=== PATIENT | male | born 1940 | race Caucasian/White ===

== ENCOUNTER → 2019-09-28 16:32 | Outpatient (CLI) | payer MEDICARE, OTHER, SELFPAY ==
--- NOTE | 2019-09-28 16:53 | XR_ITS ---
PROCEDURE: XR LUMBAR SPINE MIN 4V CLINICAL INDICATION: SCIATICA OF RIGHT SIDE The low back pain COMPARISON: No exams were available for comparison FINDINGS: Normal alignment. No fracture or dislocation. The the disc spaces are well preserved. There are facet arthritic changes at L5-S1. There are bilateral hip arthroplasties. IMPRESSION: Facet osteoarthritic change at L5-S1 Dictated by: Joni Abraham MD 09/28/2019 17:55 Electronically signed by Joni Abraham MD in [place] 09/28/2019 17:55
== END ==
PROVIDERS: PCP Family Medicine; Visit Provider Family Medicine
DX: M51.34 Other intervertebral disc degeneration, thoracic region (principal)
CPT/HCPCS: 72110

== ENCOUNTER → 2019-10-08 13:00 | Outpatient (CLI) | payer MEDICARE, OTHER, SELFPAY ==
--- NOTE | 2019-10-08 13:06 | XR_ITS ---
PROCEDURE: XR KNEE RT 3V CLINICAL INDICATION: ACUTE PAIN OF RIGHT KNEE COMPARISON: No exams were available for comparison FINDINGS: No fracture or dislocation. No lytic or blastic change. There is normal mineralization. There are mild osteoarthritic changes of the medial compartment and patellofemoral joint with small suprapatellar effusion. There is a small calcific density along the articular surface of the lateral femoral condyle which could be due to small osteophyte. Other findings:None. IMPRESSION: Osteoarthritic change with knee joint effusion Dictated by: Joni Abraham MD 10/08/2019 15:11 Electronically signed by Joni Abraham MD in [place] 10/08/2019 15:11
== END ==
PROVIDERS: PCP Family Medicine; Visit Provider Family Medicine
DX: M25.561 Pain in right knee (principal)
CPT/HCPCS: 73562

== ENCOUNTER → 2020-05-27 12:49 | Outpatient (CLI) | payer MEDICARE, OTHER, SELFPAY ==
--- NOTE | 2020-05-27 13:05 | ECG_ITS ---
APPROVED REPORT Exam: Resting ECG HR:76 bpm ECG Measurements Heart Rate 76 AXES RI 238 P 26 QRSd 104 QRS -46 QT 412 T 12 QTc 463 <Conclusion> Sinus rhythm with 1st degree AV block with premature atrial complexes Left axis deviation,LAHB Abnormal ECG Electronically signed by : Jeison Roldan, 05/28/2020 17:55:57
== END ==
PROVIDERS: PCP Family Medicine; Visit Provider Family Medicine
DX: R00.8 Other abnormalities of heart beat (principal)
CPT/HCPCS: 93005

== ENCOUNTER → 2022-02-22 10:11 | Outpatient (CLI) | payer MEDICARE, OTHER, SELFPAY ==
[2022-02-22 10:45] LABS: Blood Urea Nitrogen 18 mg/dl (9-20); Estimated Glomerular Filt Rate 53 ml/min (>60); GFR (African American) 64 ML/MIN (>60)
--- NOTE | 2022-02-22 10:48 | CT_ITS ---
FINAL REPORT TECHNIQUE: Thin section axial CT with IV contrast supplemented with multiplanar reconstruction under CT angiogram protocol. This study was performed with techniques to keep radiation doses as low as reasonably achievable (ALARA). Individualized dose reduction techniques using automated exposure control or adjustment of mA and/or kV according to the patient''s size were employed. NASCET criteria was utilized during interpretation. CLINICAL HISTORY: IMBALANCE FINDINGS: Aortic arch: Arch shows no significant narrowing. There is calcified plaque at the carotid bulbs bilaterally without evidence of stenosis. Right carotid: No significant stenosis is seen of the cervical common or internal carotid artery. Left carotid: No significant stenosis is seen of the cervical common or internal carotid artery. Vertebral: Left vertebral artery is dominant. No significant stenosis is present. IMPRESSION: Calcified plaque at the carotid bulbs bilaterally without significant stenosis. Reviewed, Interpreted and Dictated by Fredo Licea III, MD Transcribed by Yamilet Sadler Authenticated by Fredo Licea III, MD on 02/22/2022 12:46:[address] [facility]
== END ==
PROVIDERS: PCP Family Medicine; Visit Provider Family Medicine
DX: R26.89 Other abnormalities of gait and mobility (principal)
CPT/HCPCS: 36415; 70498; 82565; 84520; Q9967

== ENCOUNTER → 2022-03-08 13:53 | Outpatient (CLI) | payer MEDICARE, OTHER, SELFPAY ==
--- NOTE | 2022-03-08 13:57 | CT_ITS ---
FINAL REPORT TECHNIQUE: Thin section axial CT with IV contrast supplemented with multiplanar reconstruction under CT angiogram protocol. 3-D reconstructions were performed. This study was performed with techniques to keep radiation doses as low as reasonably achievable (ALARA). Individualized dose reduction techniques using automated exposure control or adjustment of mA and/or kV according to the patient''s size were employed. CLINICAL HISTORY: IMBALANCE FINDINGS: The distal vertebral, basilar and distal internal carotid arteries have an unremarkable appearance. No aneurysm is seen. Major intracranial vessels are patent without significant stenosis. Noncontrast CT images of the head reveal generalized age-appropriate atrophy. There is a 10 mm low-attenuation area in the right cerebral white matter which is nonspecific and may represent chronic ischemic change. There is no evidence of intracranial hemorrhage or mass. There is no evidence of acute infarct. There is no evidence of shift of the midline structures. No skull abnormality is seen on the bone window images. There is a retention cyst or polyp in the left maxillary sinus. IMPRESSION: Chronic ischemic change with no acute abnormality. No vascular abnormality. Reviewed, Interpreted and Dictated by Fredo Licea III, MD Transcribed by Corinna Cordero Authenticated by Fredo Licea III, MD on 03/08/2022 04:36:[address] [facility]
== END ==
PROVIDERS: PCP Family Medicine; Visit Provider Family Medicine
DX: R26.89 Other abnormalities of gait and mobility (principal)
CPT/HCPCS: 70496; Q9967

== ENCOUNTER 2022-03-28 09:00 | Outpatient (RCR) | payer MEDICARE, OTHER, SELFPAY ==
--- NOTE | 2022-02-20 15:45 | HMH.PTOPEV ---
PT Outpatient Evaluation Rehab PT Outpatient Evaluation Start: 02/20/22 15:07 Freq: Status: Active Protocol: Document 02/20/22 15:27 FLY (Rec: 02/20/22 15:45 FLY [id number]) Electronically Signed By Theo Singh PT 02/20/22 15:27 Outpatient Therapy Subjective History Subjective History This is the initial Physical Therapy evaluation for Mayur Marks. Pt reports to PT for c/o dizziness that have been intermittantly going on for 6 MONTHS OR MORE . Pt reports he has been diagnosed w/ Meniere's disease 7-8 years ago. Pt also reports recent progressive hearing loss and use of hearing aids. Pt states his dizziness can vary in intensity and description, sometimes it just like pictures sliding down the wall other times it is room flat spinning counter clockwise . Pt can not pin point any aggravating factors, time of day or positions that cause complaints of dizziness . Chief Complaint Other Symptom Type Other Symptoms Relieved By Nothing Prior Functional Limitations None Current Functional Limitations Housework,Driving,Recreation Activity,Walking,Balance Symptom Description Intermittent Balance Eval Chief Complaint vertigo Yes Did you feel dizzy, unsteady or faint? Yes Activity at onset unknown Prior Functional Limitations Prior Functional [place] Level Fully Independent Current Functional Limitations Comment modified independent Hx of Falls Hx Falls No Number in last 6 months 0 Gait/Posture Asssessment General Gait Observation Wide Based Gait,Shuffling Step Assistive Devices Straight Cane Level of Transfer Assist Standby Assistance Hip Observation in Gait Swing Externally Rotated,Abducted Hip Observation in Gait Stance Externally Rotated,Abducted Ankle/Foot Observation in Gait Swing Decreased Foot Clearance Nystagmus Nystagmus Presence None Timed Up and Go Test 1. Is the Timed Up and Go test result > yes or = to 12 seconds? Oculomotor Gaze Oculomotor Gaze Nml: Saccades VOR Cance
== END 2022-03-28 09:05 | disposition home or self-care (01) ==
LOC: PT 09:00
PROVIDERS: PCP Family Medicine; Visit Provider Family Medicine
DX: R26.89 Other abnormalities of gait and mobility (principal)
CPT/HCPCS: 97110; 97112; 97163; 97164; 97530

== ENCOUNTER 2022-05-26 09:31 | Emergency (ER) | payer MEDICARE, OTHER, SELFPAY ==
[2022-05-26 09:40] VITALS: BP 145/80; PULSE 80; RESP 16; O2SAT 96; BMI 32.3
[2022-05-26 09:45] VITALS: BP 145/80; PULSE 107; RESP 26; TEMP 36.6; O2SAT 95; BMI 32.2
--- NOTE | 2022-05-26 09:52 | XR_ITS ---
PROCEDURE INFORMATION: Exam: XR Chest Exam date and time: 05/26/2022 9:49 AM Age: 81 years old Clinical indication: Cough TECHNIQUE: Imaging protocol: Radiologic exam of the chest. Views: 2 views. COMPARISON: CT ANGIO NECK 02/22/2022 11:09 AM FINDINGS: Tubes, catheters and devices: Left pacemaker. Lungs: Mild linear atelectasis/fibrosis. No focal consolidation. Pleural spaces: Unremarkable. No pleural effusion. No pneumothorax. Heart/Mediastinum: Unremarkable. No cardiomegaly. Bones/joints: Surgical anchors, right humeral head. IMPRESSION: No acute process.
--- NOTE | 2022-05-26 10:05 | HMH.EDUTC ---
[facility] [place] Clinical Impression: Bronchitis Disposition: Home, Self-Care Condition on Discharge: Good Instructions: DI for Acute Bronchitis Additional Instructions: Start antibiotic today. Be sure to complete entire prescription even if feeling better Tylenol and ibuprofen as needed for pain or fever Humidifier/vaporizer/hot steamy shower Follow-up with primary care this week to have pt/inr checked due to steroid injection. Follow-up immediately in the ER of the [facility] for new or worsening symptoms or no noticeable improvement over the next 48-72 hours. Stop smoking Charity Fregoso will not cause drowsiness to use at bedtime to help stop cough so that she can get some sleep Start steroids today. Helps with inflammation therefore coughing and wheezing. Follow directions on package. Prescriptions: Cefdinir [Omnicef 300mg Capsule] 300 mg PO BID #20 cap Transmission Status: Pending to [id number] Referrals: Alexa Gomez MD [Primary Care Provider] - Time of Disposition: 11:12 Medical Decision Making - Matthew Inquiry Pt receiving controlled substance: No Vital Signs: 05/26/22 09:40 05/26/22 09:45 05/26/22 11:03 Temperature 97.9 F 97.9 F Temperature Source Temporal Artery Scan Pulse Rate 107 H Pulse Rate [Right] 80 107 H Respiratory Rate 16 26 H 26 H Blood Pressure 145/80 H Blood Pressure [Right Arm] 145/80 H 145/80 H Blood Pressure Mean [Right Arm] 101 101 Blood Pressure Source [Right Arm] Automatic Cuff Automatic Cuff Blood Pressure Position [Right Arm] Sitting Sitting 02 Sat by Pulse Oximetry 96 95 Oxygen Delivery Method Room Air Room Air - Lab Data Lab Results 05/26/22 10:25: WBC 11.8 H, RBC 5.07, Hgb 16.1, Hct 49.5, MCV 97.7 H, MCH 31.7 H, MCHC 32.4, RDW 14.4, Plt Count 183, MPV 9.0, Neut % (Auto) 82.0 H, Lymph % (Auto) 7.5 L, Buchanan % (Auto) 8.1, Eos % (Auto) 0.9, Baso % (Auto) 1.5, Neut # (Auto) 9.6 H, Lymph # (Auto) 0.9, Buchanan # (Auto) 1.0, Eos # (Auto) 0.1, Baso # (Auto) 0.2 05/26/22 10:25: Sodium 136, Potassium 4.6, Chloride 98, Carbon Dioxide 30, Anion Gap 12.6, BUN 15, Creatinine 1.30 H, Estimated Creat Clear 67, Estimated GFR 53 L, Est GFR ( Amer) 64, Glucose 145 H, Calcium 9.8, Total Bilirubin 0.8, AST 41, ALT 32, Alkaline Phosphatase 97, Total Protein 8.2, Albumin 4.5, Globulin 3.7 H, Albumin/Globulin Ratio 1.2 05/26/22 10:25: Total Creatine Kinase 145, CK-MB (CK-2) 1.9, CK-MB (CK-2) Rel Index 1.3, Troponin I < 0.01 Result diagrams: 05/26/22 10:25 05/26/22 10:25 [facility] [place] - General Chief complaint: Urgent Treatment Center Stated complaint: soa, cough Time Seen by Provider: 05/26/22 10:05 Mode of Arrival: Ambulatory Source of Information: Patient Limitations: No Limitations Description of Symptoms (Recalled from Triage Doc. by RN): PATIENT C/O PRODUCTIVE COUGH WITH YELLOW SPUTUM, DIZZINESS, SOA, WHEEZING, AND SWEATING X 2 WEEKS. DENIES ANY SICK CONTACTS HEENT Symptoms (Recalled from RN notes): Yes Resp Symptoms (Recalled from RN notes): Yes Skin Symptoms (Recalled from RN notes): No MS Symptoms (Recalled from RN notes): No Functional Status (Recalled from RN notes): WNL - History of Present Illness Provider Complaint: 81 yr old male presnets for, coughing up yellow sputum,wheezing, sweating,chills,body aches and htn for 3 weeks but the last week worse. pt states he has not slept much due to coughing. pt states he feels like he did when he had pneumonia - Related Data Home Medications Medication Instructions Recorded Confirmed pantoprazole 20 mg tablet,delayed 20 mg PO DAILY 11/28/18 04/24/22 release warfarin 5 mg tablet 5 mg PO QMWF 11/28/18 04/24/22 allopurinol 300 mg tablet 300 mg PO DAILY tab 02/27/22 04/24/22 amiodarone 200 mg tablet 200 mg PO DAILY tab 02/27/22 04/24/22 aspirin 81 mg tablet,delayed 81 mg PO DAILY 02/27/22 04/24/22 release finasteride 5 mg tablet 5 mg PO DAILY tab 02/27/22 04/24/22 hydrochlorothiazide 12.5 mg
[2022-05-26 10:40] LABS: Basophils # 0.2 K/mm3 (0-0.2); Basophils % 1.5 % (0.1-2.0); Eosinophils # 0.1 K/mm3 (0.0-0.4); Eosinophils % 0.9 % (0.1-12.0); Hematocrit 49.5 % (42.0-52.0); Hemoglobin 16.1 g/dL (14.1-18.0); Lymphocytes # 0.9 K/mm3 (0.7-4.5); Lymphocytes % 7.5 % (10-50); Mean Corpuscular HGB Conc 32.4 g/dL (31.8-35.4); Mean Corpuscular Hemoglobin 31.7 pg (27.0-31.2); Mean Corpuscular Volume 97.7 fl (80-94); Monocytes % 8.1 % (1.7-9.3); Neutrophils # 9.6 K/mm3 (1.8-7.8); Platelet Count 183 K/mm3 (142-424); Red Blood Count 5.07 M/mm3 (4.60-6.20); Red Cell Distribution Width 14.4 % (11.5-17.5); White Blood Count 11.8 K/mm3 (4.8-10.8)
[2022-05-26 10:43] LABS: Creatine Kinase 145 U/L (55-170)
[2022-05-26 10:44] LABS: Alanine Aminotransferase 32 U/L (12-78); Albumin Level 4.5 g/dl (3.5-5.0); Albumin/Globulin Ratio 1.2 (1.1-1.8); Alkaline Phosphatase 97 U/L (38-126); Anion Gap 12.6 mEq/L (5-15); Aspartate Amino Transferase 41 U/L (17-59); Bilirubin,Total 0.8 mg/dl (0.2-1.3); Blood Urea Nitrogen 15 mg/dl (9-20); Calcium 9.8 mg/dl (8.4-10.2); Carbon Dioxide 30 mmol/L (22.0-30.0); Chloride 98 mmol/L (98-107); Creatinine Clearance Estimated 67 mL/min (50-200); Estimated Glomerular Filt Rate 53 ml/min (>60); GFR (African American) 64 ML/MIN (>60); Globulin 3.7 g/dL (1.3-3.2); Glucose 145 mg/dl (74-100); Potassium 4.6 mmoL/L (3.5-5.1); Sodium 136 mmol/L (136-145); Total Protein,Serum 8.2 g/dl (6.3-8.2)
[2022-05-26 10:56] LABS: CKMB Relative Index 1.3 U/L (0-4.0); Creatine Kinase MB 1.9 ng/ml (0.0-2.03)
[2022-05-26 10:59] LABS: Troponin I < 0.01 ng/ml (0.00-0.034)
[2022-05-26 11:03] VITALS: BP 145/80; PULSE 107; RESP 26; TEMP 36.6; O2SAT 95
== END 2022-05-26 11:37 | disposition home or self-care (01) ==
PROVIDERS: Emergency Provider Nurse Practitioner Family; PCP Family Medicine
DX: J40 Bronchitis, not specified as acute or chronic (principal)
CPT/HCPCS: 71046; 80053; 82550; 82553; 84484; 85025; 96372; 99212; G0463

== ENCOUNTER → 2022-07-05 11:21 | Outpatient (CLI) | payer MEDICARE, OTHER, SELFPAY ==
[2022-07-05 18:11] LABS: Anion Gap 11.7 mEq/L (5-15); Blood Urea Nitrogen 19 mg/dl (9-20); Calcium 9.6 mg/dl (8.4-10.2); Carbon Dioxide 25 mmol/L (22.0-30.0); Chloride 105 mmol/L (98-107); Cholesterol 126 mg/dl (140-200); Estimated Glomerular Filt Rate 72 ml/min (>60); GFR (African American) 87 ML/MIN (>60); Glucose 121 mg/dl (74-100); HDL Cholesterol 42 mg/dl (40-60); Potassium 4.7 mmoL/L (3.5-5.1); Sodium 137 mmol/L (136-145); Triglycerides 112 mg/dl (30-150); VLDL Cholesterol 22 mg/dL (0-40)
[2022-07-07 08:31] LABS: Direct LDL Cholesterol 60 mg/dL (100-129)
== END ==
PROVIDERS: PCP Family Medicine; Visit Provider Family Medicine
DX: E78.2 Mixed hyperlipidemia (principal); I10 Essential (primary) hypertension
CPT/HCPCS: 80048; 80061

== ENCOUNTER → 2022-10-18 10:08 | Outpatient (CLI) | payer MEDICARE, OTHER, SELFPAY ==
[2022-10-18 19:44] LABS: Alanine Aminotransferase 31 U/L (12-78); Albumin Level 4.5 g/dl (3.5-5.0); Albumin/Globulin Ratio 1.8 (1.1-1.8); Alkaline Phosphatase 127 U/L (38-126); Anion Gap 13.5 mEq/L (5-15); Aspartate Amino Transferase 36 U/L (17-59); Bilirubin,Total 0.4 mg/dl (0.2-1.3); Blood Urea Nitrogen 25 mg/dl (9-20); Calcium 10.2 mg/dl (8.4-10.2); Carbon Dioxide 27 mmol/L (22.0-30.0); Chloride 103 mmol/L (98-107); Chol/HDL Ratio 3.3 (1-3.5); Cholesterol 143 mg/dl (140-200); Estimated Glomerular Filt Rate 49 ml/min (>60); GFR (African American) 59 ML/MIN (>60); Globulin 2.5 g/dL (1.3-3.2); Glucose 111 mg/dl (74-100); HDL Cholesterol 44 mg/dl (40-60); Potassium 4.5 mmoL/L (3.5-5.1); Sodium 139 mmol/L (136-145); Triglycerides 130 mg/dl (30-150); VLDL Cholesterol 26 mg/dL (0-40)
[2022-10-18 19:55] LABS: Direct LDL Cholesterol 68.42 mg/dL (100-129)
== END ==
PROVIDERS: PCP Family Medicine; Visit Provider Family Medicine
DX: Z95.0 Presence of cardiac pacemaker (principal); E78.5 Hyperlipidemia, unspecified; I10 Essential (primary) hypertension
CPT/HCPCS: 80053; 80061; 84443

== ENCOUNTER → 2023-01-28 23:00 | Outpatient (CLI) | payer MEDICARE, OTHER, SELFPAY | PROVIDERS: PCP Family Medicine; Visit Provider Family Medicine | DX: H92.12 Otorrhea, left ear (principal); B95.7 Other staphylococcus as the cause of diseases classified elsewhere | CPT/HCPCS: 87070; 87077; 87186 ==

== ENCOUNTER → 2023-05-03 09:06 | Outpatient (CLI) | payer MEDICARE, OTHER, SELFPAY ==
[2023-05-02 17:54] LABS: Basophils % 0.6 % (0.1-2.0); Eosinophils # 0.2 K/mm3 (0.0-0.4); Eosinophils % 3.1 % (0.1-12.0); Hematocrit 47.5 % (42.0-52.0); Hemoglobin 15.6 g/dL (14.1-18.0); Lymphocytes # 1.6 K/mm3 (0.7-4.5); Mean Corpuscular HGB Conc 32.9 g/dL (31.8-35.4); Mean Corpuscular Hemoglobin 31.9 pg (27.0-31.2); Mean Corpuscular Volume 96.9 fl (80-94); Mean Platelet Volume 10.1 fl (7.4-10.4); Monocytes # 0.6 K/mm3 (0.1-1.0); Monocytes % 9.2 % (1.7-9.3); Neutrophils # 3.6 K/mm3 (1.8-7.8); Neutrophils % 60.2 % (37.0-80.0); Platelet Count 147 K/mm3 (142-424); Red Cell Distribution Width 14.5 % (11.5-17.5)
[2023-05-02 17:59] LABS: Alanine Aminotransferase 32 U/L (12-78); Albumin Level 4.3 g/dl (3.5-5.0); Albumin/Globulin Ratio 1.7 (1.1-1.8); Alkaline Phosphatase 90 U/L (38-126); Anion Gap 14.7 mEq/L (5-15); Aspartate Amino Transferase 45 U/L (17-59); Bilirubin,Total 0.6 mg/dl (0.2-1.3); Blood Urea Nitrogen 18 mg/dl (9-20); Calcium 9.1 mg/dl (8.4-10.2); Carbon Dioxide 30 mmol/L (22.0-30.0); Chloride 99 mmol/L (98-107); Chol/HDL Ratio 2.8 (1-3.5); Cholesterol 130 mg/dl (140-200); Estimated Glomerular Filt Rate 58 ml/min (>60); GFR (African American) 70 ML/MIN (>60); Globulin 2.6 g/dL (1.3-3.2); Glucose 97 mg/dl (74-100); HDL Cholesterol 47 mg/dl (40-60); Potassium 4.7 mmoL/L (3.5-5.1); Sodium 139 mmol/L (136-145); Total Protein,Serum 6.9 g/dl (6.3-8.2); Triglycerides 160 mg/dl (30-150); VLDL Cholesterol 32 mg/dL (0-40)
[2023-05-02 18:11] LABS: Direct LDL Cholesterol 60.89 mg/dL (100-129)
== END ==
PROVIDERS: PCP Family Medicine; Visit Provider Family Medicine
DX: C44.90 Unspecified malignant neoplasm of skin, unspecified (principal); I10 Essential (primary) hypertension
CPT/HCPCS: 80053; 80061; 85025

== ENCOUNTER → 2023-05-22 08:57 | Outpatient (POV) | payer MEDICARE, OTHER, SELFPAY | PROVIDERS: Visit Provider Specialist/Technologist | DX: Z00.00 Encounter for general adult medical examination without abnormal findings (principal) ==

== ENCOUNTER → 2023-08-26 08:18 | Outpatient (CLI) | payer MEDICARE, OTHER, SELFPAY ==
[2023-08-26 19:26] LABS: Alanine Aminotransferase 34 U/L (12-78); Albumin/Globulin Ratio 1.4 (1.1-1.8); Alkaline Phosphatase 102 U/L (38-126); Anion Gap 10.7 mEq/L (5-15); Aspartate Amino Transferase 40 U/L (17-59); Bilirubin,Total 0.5 mg/dl (0.2-1.3); Blood Urea Nitrogen 15 mg/dl (9-20); Calcium 9.2 mg/dl (8.4-10.2); Carbon Dioxide 29 mmol/L (22.0-30.0); Chloride 103 mmol/L (98-107); Estimated Glomerular Filt Rate 64 ml/min (>60); GFR (African American) 78 ML/MIN (>60); Globulin 2.9 g/dL (1.3-3.2); Glucose 114 mg/dl (74-100); Potassium 4.7 mmoL/L (3.5-5.1); Sodium 138 mmol/L (136-145); Total Protein,Serum 6.9 g/dl (6.3-8.2)
== END ==
PROVIDERS: PCP Family Medicine; Visit Provider Family Medicine
DX: I10 Essential (primary) hypertension (principal)
CPT/HCPCS: 80053

== ENCOUNTER → 2023-10-01 07:23 | Outpatient (CLI) | payer MEDICARE, OTHER, SELFPAY ==
--- NOTE | 2023-10-01 07:27 | CT_ITS ---
FINAL REPORT TECHNIQUE: Thin section axial CT images with coronal and sagittal reformats were performed. This study was performed with techniques to keep radiation doses as low as reasonably achievable (ALARA). Individualized dose reduction techniques using automated exposure control or adjustment of mA and/or kV according to the patient's size were employed. CLINICAL HISTORY: Lt Lower leg pain COMPARISON: None FINDINGS: No evidence of a joint effusion is present in the knee. There is mild narrowing of the medial compartment of the knee. Diffuse osteopenia is present. There are no fractures. There are no masses or fluid collections. Mild vascular calcifications are seen in the tibial vessels, which may be secondary to an underlying diabetes. IMPRESSION: No acute bony abnormality is identified. Diffuse osteopenia is present, and there is mild degenerative change in the medial compartment of the knee. Reviewed, Interpreted and Dictated by Claus Flores MD Transcribed by Pilar Sadler Authenticated and [facility]
== END ==
PROVIDERS: PCP Family Medicine; Visit Provider Orthopaedic Surgery
DX: M79.605 Pain in left leg (principal)
CPT/HCPCS: 73700

== ENCOUNTER 2023-10-01 08:29 | Outpatient (RCR) | payer MEDICARE, OTHER, SELFPAY | END 2023-10-01 09:30 | disposition home or self-care (01) | LOC: PT 08:29 | PROVIDERS: Visit Provider Orthopaedic Surgery | DX: S86.012A Strain of left Achilles tendon, initial encounter (principal) | CPT/HCPCS: 97760 ==

== ENCOUNTER → 2023-11-04 23:09 | Outpatient (CLI) | payer MEDICARE, OTHER, SELFPAY ==
[2023-11-04 19:03] LABS: Basophils # 0.1 K/mm3 (0-0.2); Basophils % 0.7 % (0.1-2.0); Eosinophils # 0.2 K/mm3 (0.0-0.4); Eosinophils % 3.4 % (0.1-12.0); Hematocrit 46.6 % (42.0-52.0); Lymphocytes # 1.7 K/mm3 (0.7-4.5); Lymphocytes % 24.4 % (10-50); Mean Corpuscular HGB Conc 34.2 g/dL (31.8-35.4); Mean Corpuscular Hemoglobin 33.1 pg (27.0-31.2); Mean Corpuscular Volume 96.7 fl (80-94); Mean Platelet Volume 9.8 fl (7.4-10.4); Monocytes # 0.6 K/mm3 (0.1-1.0); Monocytes % 8.9 % (1.7-9.3); Neutrophils # 4.4 K/mm3 (1.8-7.8); Neutrophils % 62.6 % (37.0-80.0); Platelet Count 154 K/mm3 (142-424); Red Blood Count 4.83 M/mm3 (4.60-6.20); Red Cell Distribution Width 13.9 % (11.5-17.5)
[2023-11-04 19:09] LABS: Alanine Aminotransferase 35 U/L (12-78); Albumin Level 4.4 g/dl (3.5-5.0); Albumin/Globulin Ratio 1.6 (1.1-1.8); Alkaline Phosphatase 84 U/L (38-126); Anion Gap 11.5 mEq/L (5-15); Aspartate Amino Transferase 54 U/L (17-59); Bilirubin,Total 0.7 mg/dl (0.2-1.3); Blood Urea Nitrogen 21 mg/dl (9-20); Calcium 8.8 mg/dl (8.4-10.2); Carbon Dioxide 27 mmol/L (22.0-30.0); Chloride 102 mmol/L (98-107); Chol/HDL Ratio 3.4 (1-3.5); Cholesterol 131 mg/dl (140-200); Estimated Glomerular Filt Rate 58 ml/min (>60); GFR (African American) 70 ML/MIN (>60); Globulin 2.7 g/dL (1.3-3.2); Glucose 114 mg/dl (74-100); HDL Cholesterol 39 mg/dl (40-60); Potassium 4.5 mmoL/L (3.5-5.1); Sodium 136 mmol/L (136-145); Total Protein,Serum 7.1 g/dl (6.3-8.2); Triglycerides 140 mg/dl (30-150); VLDL Cholesterol 28 mg/dL (0-40)
[2023-11-04 19:20] LABS: Direct LDL Cholesterol 67.06 mg/dL (100-129)
[2023-11-04 19:41] LABS: Thyroid Stimulating Hormone 1.86 uIU/mL (0.465-4.68)
[2023-11-04 19:50] LABS: Creatinine,Urine Random 148 mg/dL (Not Estab.); Microalbumin < 6.000 mg/L (0-16.7)
[2023-11-04 20:00] LABS: Vitamin B12 399 pg/mL (239-931)
[2023-11-04 20:11] LABS: Hemoglobin A1C 5.9 % (4.0-6.0)
== END ==
LOC: LAB.DROPOF 23:10
PROVIDERS: PCP Nurse Practitioner; Visit Provider Nurse Practitioner
DX: E78.5 Hyperlipidemia, unspecified (principal); I10 Essential (primary) hypertension; R73.01 Impaired fasting glucose; E66.01 Morbid (severe) obesity due to excess calories
CPT/HCPCS: 80053; 80061; 82043; 82570; 82607; 83036; 84443; 85025

== ENCOUNTER 2024-04-28 12:08 | Outpatient (POV) | payer MEDICARE, OTHER, SELFPAY | END 2024-04-28 23:59 | disposition home or self-care (01) | LOC: SC 12:09 | PROVIDERS: PCP Family Medicine; Visit Provider Specialist/Technologist | DX: Z00.00 Encounter for general adult medical examination without abnormal findings (principal) ==

== ENCOUNTER 2024-10-05 11:00 | Outpatient (POV) | payer MEDICARE, OTHER, SELFPAY | END 2024-10-05 23:59 | disposition home or self-care (01) | LOC: SC 10-06 06:51 | PROVIDERS: Visit Provider Dermatology | DX: Z00.00 Encounter for general adult medical examination without abnormal findings (principal) ==

== ENCOUNTER 2024-10-19 18:59 | Outpatient (CLI) | payer MEDICARE, OTHER, SELFPAY | END 2024-10-19 23:59 | disposition home or self-care (01) | LOC: LAB.DROPOF 19:01 | PROVIDERS: PCP Family Medicine; Visit Provider Family Medicine | DX: Z02.9 Encounter for administrative examinations, unspecified (principal) ==

== ENCOUNTER 2025-01-18 10:02 | Outpatient (CLI) | payer MEDICARE, OTHER, SELFPAY ==
[2025-01-18 20:21] LABS: Basophils # 0.1 K/mm3 (0-0.2); Basophils % 1.4 % (0.1-2.0); Eosinophils # 0.1 K/mm3 (0.0-0.4); Hematocrit 44.4 % (42.0-52.0); Lymphocytes # 1.3 K/mm3 (0.7-4.5); Lymphocytes % 26.3 % (10-50); Mean Corpuscular HGB Conc 33.8 g/dL (31.8-35.4); Mean Corpuscular Hemoglobin 32.8 pg (27.0-31.2); Mean Corpuscular Volume 97.2 fl (80-94); Mean Platelet Volume 11.1 fl (7.4-10.4); Monocytes # 0.7 K/mm3 (0.1-1.0); Monocytes % 13.8 % (1.7-9.3); Neutrophils # 2.9 K/mm3 (1.8-7.8); Neutrophils % 56.3 % (37.0-80.0); Platelet Count 160 K/mm3 (142-424); Red Blood Count 4.57 M/mm3 (4.60-6.20); Red Cell Distribution Width 13.2 % (11.5-17.5); White Blood Count 5.1 K/mm3 (4.8-10.8)
[2025-01-18 21:14] LABS: Alanine Aminotransferase 31 U/L (12-78); Albumin Level 4.4 g/dl (3.5-5.0); Albumin/Globulin Ratio 2.2 (1.1-1.8); Alkaline Phosphatase 82 U/L (38-126); Anion Gap 12.6 mEq/L (5-15); Aspartate Amino Transferase 36 U/L (17-59); Bilirubin,Total 0.5 mg/dl (0.2-1.3); Blood Urea Nitrogen 21 mg/dl (9-20); Calcium 9.5 mg/dl (8.4-10.2); Carbon Dioxide 28 mmol/L (22.0-30.0); Chloride 104 mmol/L (98-107); Estimated Glomerular Filt Rate 53 ml/min (>60); GFR (African American) 64 ML/MIN (>60); Glucose 120 mg/dl (74-100); Potassium 4.6 mmoL/L (3.5-5.1); Sodium 140 mmol/L (136-145); Total Protein,Serum 6.4 g/dl (6.3-8.2)
[2025-01-18 21:41] LABS: Thyroid Stimulating Hormone 2.32 uIU/mL (0.465-4.68)
[2025-01-18 22:00] LABS: Vitamin B12 328 pg/mL (239-931)
== END 2025-01-18 23:59 | disposition home or self-care (01) ==
LOC: LAB.DROPOF 01-19 10:02
PROVIDERS: PCP Family Medicine; Visit Provider Family Medicine
DX: I10 Essential (primary) hypertension (principal); R53.83 Other fatigue; H81.01 Meniere's disease, right ear
CPT/HCPCS: 80053; 82607; 84443; 85025

== ENCOUNTER 2025-05-17 12:39 | Outpatient (CLI) | payer MEDICARE, OTHER, SELFPAY ==
--- OUTSIDE RECORDS SUMMARY | 2025-04-20 09:17 | XMS_ITS | Encounter Summary ---
Author Organization [place] [address] Care Team Providers Care [employer] Name Role Phone Teja Gomez MD Primary Care Provider [phone] Melecio Rico MD Unavailable [phone] Encounter Details Date Type Department Care Team (Latest Contact Info) Description 04/20/2025 9:17 AM EDT - 04/20/2025 11:59 PM EDT Hospital Encounter [facility] [address] [facility]. [place], [place] [id number] Paroxysmal atrial fibrillation (HCC) (Primary Dx); Encounter for therapeutic drug monitoring; care home (current) use of anticoagulants Discharge Disposition: Home or Self Care Social History Tobacco Use Types Packs/Day Years Used Date Smoking Tobacco: Never Smokeless Tobacco: Never Alcohol Use Standard Drinks/Week Comments No 0 (1 standard drink = 0.6 oz pur e alcohol) Sexually Active Control Partners Comments Not Currently Sex and Gender Information Value Date Recorded Sex Assigned at Not on file Legal Sex Male 5:43 AM EDT Gender Identity Not on file Sexual Orientation Not on file documented as of this encounter Medications at Time of Discharge albuterol (PROVENTIL HFA;VENTOLIN HFA) 90 mcg/actuation Inhl HFA Aerosol Inhaler Inhale 2 Puffs into the lungs every 4 hours as needed. 04/26/2024 allopurinol (ZYLOPRIM) 300 mg Oral Tablet Take 300 mg by mouth. amiodarone (PACERONE) 200 mg Oral TabletIndications: Paroxysmal atrial fibrillation (HCC) Take 0.5 Tabs by mouth daily. 30 Tab 6 06/12/2018 aspirin 81 mg tablet Take 81 mg by mouth daily. Bifidobacterium Infantis (ALIGN) 4 mg Oral CapsuleIndications :Alternating constipation and diarrhea Take 1 Capsule by mouth daily. 30 Capsule 2 02/27/2024 Coenzyme Q10 100 mg Oral Capsule Take 100 mg by mouth daily. finasteride (PROSCAR) 5 mg Oral Tablet Take 5 mg by mouth daily. hydroCHLOROthiazid e (MICROZIDE) 12.5 mg Oral Capsule Take 12.5 mg by mouth daily. Taking every other day. LEVOTHYROXINE SODIUM (LEVOTHYROXINE ORAL) Take 25 mcg by mouth daily. loratadine (CLARITIN) 10 mg Oral Tablet Take 10 mg by mouth as needed (allergies). meclizine (ANTIVERT) 25 mg tablet Take 25 mg by mouth 2 times daily. methylcellulose (CITRUCEL) 500 mg Oral TabletIndications: Alternating constipation and diarrhea Take 1 Tablet by mouth 2 times daily. 60 Tablet 2 02/27/2024 PANTOPRAZOLE SODIUM (PROTONIX ORAL) Take 40 mg by mouth daily. potassium chloride (KLOR-CON M) 20 mEq Oral Tab Sust.Rel. Particle/Crystal Take 20 mEq by mouth daily. 07/01/2024 rosuvastatin (CRESTOR) 20 mg Oral Tablet Take 20 mg by mouth nightly. 6 05/22/2018 spironolactone (ALDACTONE) 25 mg Oral TabletIndications: Essential hypertension Take 1 Tab by mouth daily. 30 Tab 11 06/13/2021 valACYclovir (VALTREX) 500 mg Oral Tablet Take 500 mg by mouth every 12 hours. Vitamin A-Vitamin C-Vit E-Min Oral Tablet Take 1 Tablet by mouth daily. warfarin (COUMADIN) 5 mg Oral TabletIndications: Paroxysmal atrial fibrillation (HCC) Take 5mg (1 Tablet) every Friday and 2.5mg (1/2 Tablet) all other days OR as instructed per [facility]. (90 day supply) 51 Tablet 1 02/02/2025 lamiVUDine (EPIVIR) 100 mg Oral TabletIndications: Chronic hepatitis B with cirrhosis (HCC) Take 1 Tablet by mouth daily. 30 Tablet 3 01/04/2025 metoprolol succinate (TOPROL-XL) 50 mg Oral Tablet Sustained Release 24 hrIndications:PVC (premature ventricular contraction) Take 1 Tablet by mouth daily. 90 Tablet 1 11/01/2024 5 documented as of this encounter Discharge Disposition Disposition Code Departure Means Destination Home or Self Care documented in this encounter Progress Notes * Tara Stone - 04/20/2025 9:30 AM EDT Follow-Up Visit Mayur Marks was seen today for assessment, management and follow-up of his anticoagulation status. The patient was referred by Dr. Rico and has a medical history significant for atrial fibrillation. 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: Yes, reviewed Medication changes: none Dietary changes: none Alcohol use: none Nutritional supplements: none Reports of unexpected bleeding: none Bruising, swelling, redness, or unexplained lumps: none Numbness or weakness: none Breathing difficulty: none Problems with confusion, balance, or light-headedness: none Other problems or concerns: none Recent Hospitalizations: none Upcoming procedures/bridging needs: none INR = 2.1 (goal 2.0-3.0) within goal and stable from 2.1 at last visit Weekly dose= 20 mg Tablet size= 5 mg The patient was instructed to continue current warfarin dose of 5 mg Tue and 2.5 mg the remainder of the week. The next INR is scheduled for 8 weeks per pt demand (importance of keeping appointments for INR checks reinforced). The patient was provided with written dosing instructions as noted above and verbalizes understanding. Cosigned by Nicki Granger PharmD at 04/20/2025 9:38 AM EDT Associated attestation - Nicki Granger PharmD - 04/20/2025 9:38 AM EDT Reviewed and agree with plan as outlined. Nicki Granger PharmD documented in this encounter Plan of Treatment Upcoming Encounters Date Type Department Care Team (Late st Contact Info) Description 06/15/2025 9:30 AM EDT Appointment [facility] MED [facility] [address] [facility] [place] [address] 07/01/2025 9:30 AM EDT Office Visit [facility] GASTRO [facility]PT[facility] [address] [place] [address] Geovanni Chau MD [address] [place], [place] [id number] 10/03/2025 10:00 AM EST Office Visit [facility] H&V [address] [id number] Melecio Rico MD [address] [place] [id number] 01/23/2026 10:30 AM EDT Office Visit [facility] Sleep Medicine [address] [address] Lilly Kc, MEDICAL ASSISTING PROGRAM DIRECTOR [address] [place] [address] documented as of this encounter Procedures Procedure Name Priority Date/Time Associated Diagnosis Comments POCT PT/INR Routine 04/20/2025 9:28 AM EDT Paroxysmal atrial fibrillation (HCC) Encounter for therapeutic drug monitoring 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 documented in this encounter Results * POCT PT/INR (04/20/2025 9:28 AM EDT) Protime [facility] INR 2.10 (ratio) [facility] Lot Number [facility]piration Date [facility] SeriAl # [facility] 04/20/2025 9:28 AM EDT us Melecio Rico MD POINT OF CARE TEST TRISTON FLANNERY Final Result [facility] [address] [place] [address], [facility] documented in this encounter Visit Diagnoses Diagnosis Paroxysmal atrial fibrillation (HCC)- Primary Atrial fibrillation Encounter for therapeutic drug monitoring 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
[2025-05-17 19:05] LABS: Alanine Aminotransferase 28 U/L (12-78); Albumin Level 4.3 g/dl (3.5-5.0); Albumin/Globulin Ratio 2.0 (1.1-1.8); Alkaline Phosphatase 84 U/L (38-126); Anion Gap 14.7 mEq/L (5-15); Aspartate Amino Transferase 37 U/L (17-59); Bilirubin,Total 0.5 mg/dl (0.2-1.3); Blood Urea Nitrogen 21 mg/dl (9-20); Calcium 8.6 mg/dl (8.4-10.2); Carbon Dioxide 27 mmol/L (22.0-30.0); Chloride 99 mmol/L (98-107); Creatinine,Serum 1.30 mg/dl (0.66-1.25); Estimated Glomerular Filt Rate 53 ml/min (>60); GFR (African American) 64 ML/MIN (>60); Globulin 2.2 g/dL (1.3-3.2); Glucose 151 mg/dl (74-100); Potassium 4.7 mmoL/L (3.5-5.1); Sodium 136 mmol/L (136-145); Total Protein,Serum 6.5 g/dl (6.3-8.2)
--- OUTSIDE RECORDS SUMMARY | 2025-05-19 12:42 | XMS_ITS | Encounter Summary ---
Author Organization [place] [address] Care Team Providers Care Continuous [employer] D[employer] Operator Name Role Phone Teja Gomez MD Primary Care Provider [phone] Melecio Rico MD Unavailable [phone] Reason for Visit * Reason Comments Medication Refill Encounter Details Date Type Department Care Team (Late st Contact Info) Description 05/02/2025 Telephone [facility] GA[facility] [place] [address] [place] [address] Geovanni Chau MD [address] [place] [address] Medication Refill Social History Tobacco Use Types Packs/Day Years [...] on file documented as of this encounter Ordered Prescriptions Prescription Sig Dispense Quantity Refills Last Filled Start Date End Date lamiVUDine (EPIVIR) 100 mg Oral TabletIndications:C hronic hepatitis B with cirrhosis (HCC) Take 1 Tablet by mouth daily. 30 Tablet 1 05/03/2025 documented in this encounter Miscellaneous Notes * Telephone Encounter - Joanna Carmichael - 05/03/2025 11:23 AM EDT [id number] x1 05/03 * Telephone Encounter - Lulu Christiansen RN - 05/03/2025 10:32 AM EDT Pt past due for his appt for Hep B. We have sent in enough meds for the next month and 1 refill. Ptwill need to be seen prior to future fills. Please call pt and offer to arrange f/u to continue treatment. Thanks! documented in this encounter Plan of Treatment Upcoming Encounters Date Type Department Care Team (Late st Contact Info) Description 06/15/2025 9:30 AM EDT Appointment [facility] [address] [facility] 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
--- OUTSIDE RECORDS SUMMARY | 2025-05-19 12:42 | XMS_ITS | Encounter Summary ---
Author Organization [place] [address] Care Team Providers Care Cyber Incident Handler Name Role Phone Teja Gomez MD Primary Care Provider [phone] Melecio Rico MD Unavailable [phone] Reason for Visit * Reason Comments Medication Refill Encounter Details Date Type Department Care Team (Late st Contact Info) Description 05/02/2025 Refill [facility] [address] [place] [address] Melecio Rico MD [address] [place] [address] Medication Refill Social History Tobacco Use Types [...] Refills Last Filled Start Date End Date metoprolol succinate (TOPROL-XL) 50 mg Oral Tablet Sustained Release 24 hrIndications:PVC (premature ventricular contraction) Take 1 Tablet by mouth daily. 100 Tablet 1 05/03/2025 documented in this encounter Miscellaneous Notes * Telephone Encounter - Elizabeth Curry CPhT - 05/03/2025 1:41 PM EDT Metoprolol 50mg - Future Visit: 10-03-25 Last Assessed Visit: 02-04-25 Follow-Up Date: 10-07-25 All protocols passed. Refills approved and sent to requesting pharmacy. [facility]. documented in this encounter Plan of Treatment Upcoming Encounters Date Type Department Care Team (Late st Contact Info) Description 06/15/2025 9:30 AM EDT Appointment [facility] 238 [facility] [place] [address] 07/01/2025 9:30 AM EDT Office Visit SEP GASTRO NPTFTT [address] [place] [address] Geovanni Chau MD [address] [place], [place] [id number] 10/03/2025 10:00 AM EST Office Visit SEP H&V [address] [address] Melecio Rico MD [address] [place] [address] 01/23/2026 10:30 AM EDT Office Visit [facility] Sleep Medicine [address] [address] Lilly Kc, INTERLIBRARY LOAN SERVICES LIBRARIAN [address] [place] [address] documented as of this encounter Visit Diagnoses Diagnosis PVC (premature ventricular contraction) Other premature beats documented in this encounter Discontinued Medications Medication Sig Discontinue Reason Start Date End Da te metoprolol succinate (TOPROL-XL) 50 mg Oral Tablet Sustained Release 24 hrIndications:PVC (premature ventricular contraction) Take 1 Tablet by mouth daily. 11/01/2024 05/03/2025 documented as of this encounter Additional Health Concerns Assessment Noted Time A fall risk assessment has been complete d for the patient 07/13/2019 9:07 AM EDT documented as of this encounter Care Teams Cyber Incident Handler Relationship Specialty Start Date End Date Teja Gomez MD 1210 [facility] [address] [facility] [address] PCP - General Family Medicine 12/14/15 Melecio Rico MD [address] [place] [address] [address] [place] [address] Internal Medicine-Cardiovascular Disease 05/12/23 documented as of this encounter
--- OUTSIDE RECORDS SUMMARY | 2025-05-19 12:42 | XMS_ITS | Encounter Summary ---
Author Organization [place] [address] Care Team Providers Care Lye Machine Operator Name Role Phone Teja Gomez MD Primary Care Provider [phone] Melecio Rico MD Unavailable [phone] Encounter Details Date Type Department Care Team (Late st Contact Info) Description 04/17/2022 Orders Only SEP Gastro CVH [address] [address] Geovanni Chau MD [address] [place] [address] Social History Tobacco Use Types Packs/Day Years [...] on file Sexual Orientation Not on file COVID-19 Exposure Response Date Recorded In the last 10 days, have yo u been in contact with someone who was confirmed or suspected to have Coronavirus/COVID-19? No / Unsure 04/16/2022 7:45 AM EDT documented as of this encounter Plan of Treatment Upcoming Encounters Date Type Department Care Team (Late st Contact Info) Description 06/15/2025 9:30 AM EDT Appointment [facility] [address] [place] [address] 07/01/2025 9:30 AM EDT Office Visit SEP GASTRO NPTFTT [address] [place] [address] Geovanni Chau MD 340 [place], [place] [id number] 10/03/2025 10:00 AM EST Office Visit SEP H&V [address] [address] Melecio Rico MD [address] [place] [address] 01/23/2026 10:30 AM EDT Office Visit [facility] Sleep Medicine [address] [address] Lilly Kc, COMPRESSED GAS EQUIPMENT MECHANIC [address] [place] [address] documented as of this encounter Procedures Procedure Name Priority Date/Time Associated Diagnosis Comments GMED COLONOSCOPY Routine 04/17/2022 10:0 0 AM EDT documented in this encounter Results * GMED COLONOSCOPY (04/17/2022 10:00 AM EDT) 04/17/2022 10:0 0 AM EDT Impressions [facility] - 04/17/2022 11:10 AM EDT Plan: This section is an excerpt of the full report. us Geovanni Chau MD GI PROCEDURE ORDERABLES Papa vijay Result - Final [facility] 1 [place], [place] [id number] documented in this encounter Visit Diagnoses Not on filedocumented in this encounter Additional Health Concerns Assessment Noted Time A fall risk assessment has been complete d for the patient 07/13/2019 9:07 AM EDT documented as of this encounter Care Teams Lye Machine Operator Relationship Specialty Start Date End Date Teja Gomez MD 1210 [facility] [address] [place] [address] PCP - General Family Medicine 12/14/15 Melecio Rico MD [address] [facility] [address] [place] [address] Internal Medicine-Cardiovascular Disease 05/12/23 documented as of this encounter
--- OUTSIDE RECORDS SUMMARY | 2025-05-19 12:42 | XMS_ITS | Encounter Summary ---
Author Organization [place] [address] Care Team Providers Care Wood Turning Lathe Operator Name Role Phone Teja Gomez MD Primary Care Provider [phone] Melecio Rico MD Unavailable [phone] Encounter Details Date Type Department Care Team (Late st Contact Info) Description 05/01/2020 Orders Only SEP H&V CV [place] [facility] [address] [place] [address] Melecio Rico MD [address] [place], [place] [phone] Social History Tobacco Use Types Packs/Day Years [...] Exposure Response Date Recorded In the last month, have you been in contact with someone who was confirmed or suspected to have Coronavirus / COVID-19? Unable to assess 05/01/2020 1:55 PM EDT documented as of this encounter Plan of Treatment Upcoming Encounters Date Type Department Care Team (Late st Contact Info) Description 06/15/2025 9:30 AM EDT [facility] [address] [place] [address] 07/01/2025 9:30 AM EDT Office Visit SEP GASTRO NPTFTT [address] [place] [address] Geovanni Chau MD 340 [place], [place] [phone] 10/03/2025 10:00 AM EST Office Visit SEP H&V [address] [address] Melecio Rico MD [address] [place] [address] 01/23/2026 10:30 AM EDT Office Visit [facility] Sleep Medicine [address] [address] Lilly Kc, BICYCLE TAXI DRIVER [address] [place] [address] documented as of this encounter Procedures Procedure Name Priority Date/Time Associated Diagnosis Comments PACEART REPORT Routine 05/01/2020 4:00 PM EDT documented in this encounter Results * PACEART REPORT (05/01/2020 4:00 PM EDT) 05/01/2020 4:00 PM EDT Melecio Rico MD [facility] CARD[facility] CATH ORDERA BLES Final Result [facility] 1 [place], [place] [id number] documented in this encounter Visit Diagnoses Not on filedocumented in this encounter Additional Health Concerns Assessment Noted Time A fall risk assessment has been complete d for the patient 07/13/2019 9:07 AM EDT documented as of this encounter Care Teams Wood Turning Lathe Operator Relationship Specialty Start Date End Date Teja Gomez MD 1210 [facility] [address] [place] [address] PCP - General Family Medicine 12/14/15 Melecio Rico MD [address] [facility] [place] [address] [place] [address] Internal Medicine-Cardiovascular Disease 05/12/23 documented as of this encounter
--- OUTSIDE RECORDS SUMMARY | 2025-05-19 12:42 | XMS_ITS | Encounter Summary ---
Author Organization Healthcare Address [address] [place] [address] Care Team Providers Care Recreation Therapy Aides Teacher Name Role Phone Teja Gomez MD Primary Care Provider [phone] Encounter Details Date Type Department Care Team (Late st Contact Info) Description 10/08/2024 Community Orders Community [facility] [address] [place] [address] Jacquie Marti MD [address] [place] [address] [place] [address] Social History Tobacco Use Types Packs/Day Years Used Date Smoking Tobacco: Never Assessed Sex and Gender Information Value Date Recorded Sex Assigned at Not on file Legal Sex Male 6:13 PM EDT Gender Identity Not on file Sexual Orientation Not on file documented as of this encounter Plan of Treatment Not on file documented as of this encounter Visit Diagnoses Not on filedocumented in this encounter Care Teams Recreation Therapy Aides Teacher Relationship Specialty Start Date End Date Teja Gomez MD [address] [place] [address] PCP - General 03/30/21 documented as of this encounter
--- OUTSIDE RECORDS SUMMARY | 2025-05-19 12:42 | XMS_ITS | Encounter Summary ---
Author Organization [place] [address] Care Team Providers Care Teacher Name Role Phone Teja Gomez MD Primary Care Provider [phone] Melecio Rico MD Unavailable [phone] Encounter Details Date Type Department Care Team (Late st Contact Info) Description 08/21/2021 Orders Only SEP H&V CV [place] [facility] [address] [place] [address] Melecio Rico MD [address] [place], [place] [phone] Social History Tobacco Use Types Packs/Day Years [...] or suspected to have Coronavirus / COVID-19? No / Unsure 07/30/2021 8:21 AM EDT documented as of this encounter Plan of Treatment Upcoming Encounters Date Type Department Care Team (Late st Contact Info) Description 06/15/2025 9:30 AM EDT [facility]ment [facility] [address] [place] [address] 07/01/2025 9:30 AM EDT Office Visit SEP GASTRO NPTFTT [address] [place] [address] Geovanni Chau MD 340 [place], [place] [phone] 10/03/2025 10:00 AM EST Office Visit SEP H&V [address] [address] Melecio Rico MD [address] [place] [address] 01/23/2026 10:30 AM EDT Office Visit [facility] Sleep Medicine [address] [address] Lilly Kc, CORPORATE LIBRARIAN [address] [place] [address] documented as of this encounter Procedures Procedure Name Priority Date/Time Associated Diagnosis Comments PACEART REPORT Routine 08/21/2021 10:45 PM EDT documented in this encounter Results * PACEART REPORT (08/21/2021 10:45 PM EDT) 08/21/2021 10:4 5 PM EDT Narrative [facility] - 08/23/2021 11:04 AM EDT Per Carelink- No events since last session See attachment for full report and details. lgy/rma us Melecio Rico MD [facility] CARDIAC CATH ORDERA BLES Final Result [facility] 1 [place], [place] [id number] documented in this encounter Visit Diagnoses Not on filedocumented in this encounter Additional Health Concerns Assessment Noted Time A fall risk assessment has been complete d for the patient 07/13/2019 9:07 AM EDT documented as of this encounter Care Teams Teacher Relationship Specialty Start Date End Date Teja Gomez MD 1210 [facility] [address] [place] [address] PCP - General Family Medicine 12/14/15 Melecio Rico MD [address] [place] [address] [place] [address] Internal Medicine-Cardiovascular Disease 05/12/23 documented as of this encounter
--- OUTSIDE RECORDS SUMMARY | 2025-05-19 12:42 | XMS_ITS | Encounter Summary ---
Author Organization [place] [address] Care Team Providers Care Factory Hand Name Role Phone Teja Gomez MD Primary Care Provider [phone] Melecio Rico MD Unavailable [phone] Encounter Details Date Type Department Care Team (Late st Contact Info) Description 10/07/2020 Orders Only SEP H&V CV [place] [address] [place] [address] Melecio Rico MD 7[address] [place], [place] [phone] Social History Tobacco Use Types Packs/Day Years [...] have Coronavirus / COVID-19? Unable to assess 10/10/2020 8:41 AM EST documented as of this encounter Plan of Treatment Upcoming Encounters Date Type Department Care Team (Late st Contact Info) Description 06/15/2025 9:30 AM EDT Appointment [facility] [address] [place] [address] 07/01/2025 9:30 AM EDT Office Visit SEP GASTRO NPTFTT [address] [place] [address] Geovanni Chau MD 340 [place], [place] [phone] 10/03/2025 10:00 AM EST Office Visit SEP H&V [address] [address] Melecio Rico MD [address] [place] [address] 01/23/2026 10:30 AM EDT Office Visit SEP Sleep Medicine [address] [address] Lilly Kc, BOWLING ALLEY OPERATOR [address] [place] [address] documented as of this encounter Procedures Procedure Name Priority Date/Time Associated Diagnosis Comments PACEART REPORT Routine 10/07/2020 12:28 AM EST documented in this encounter Results * PACEART REPORT (10/07/2020 12:28 AM EST) 10/07/2020 12:2 8 AM EST Narrative [facility] - 10/09/2020 1:25 PM EST Per carelink- 1 [address] [place]. See attachments for full report and strips. lgy/rma us Melecio Rico MD [facility] CARDI[facility] CATH ORDERA BLES Final Result [facility] 1 [place], [place] [id number] documented in this encounter Visit Diagnoses Not on filedocumented in this encounter Additional Health Concerns Assessment Noted Time A fall risk assessment has been complete d for the patient 07/13/2019 9:07 AM EDT documented as of this encounter Care Teams Factory Hand Relationship Specialty Start Date End Date Teja Gomez MD 1210 [facility] [address] [place] [address] PCP - General Family Medicine 12/14/15 Melecio Rico MD [address] [place] [address] [address] [place] [address] Internal Medicine-Cardiovascular Disease 05/12/23 documented as of this encounter
--- OUTSIDE RECORDS SUMMARY | 2025-05-19 12:42 | XMS_ITS | Encounter Summary ---
Author Organization [place] [address] Care Team Providers Care Gas Distribution Supervisor Name Role Phone Teja Gomez MD Primary Care Provider [phone] Melecio Rico MD Unavailable [phone] Encounter Details Date Type Department Care Team (Late st Contact Info) Description 07/03/2020 Orders Only SEP H&V CV [place] [facility] [address] [place] [address] Melecio Rico MD 711 [place], [place] [phone] Social History Tobacco Use Types Packs/Day Years [...] have Coronavirus / COVID-19? No / Unsure 07/06/2020 10:48 AM EDT documented as of this encounter Plan of Treatment Upcoming Encounters Date Type Department Care Team (Late st Contact Info) Description 06/15/2025 9:30 AM EDT Appointment [facility] [address] [place] [address] 07/01/2025 9:30 AM EDT Office Visit SEP GASTRO NPTFTT [address] [place] [address] Geovanni Chau MD [address] [place] [address] 10/03/2025 10:00 AM EST Office Visit SEP H&V [address] [address] Melecio Rico MD [address] [place] [address] 01/23/2026 10:30 AM EDT Office Visit SEP Sleep Medicine [address] [address] Lilly Kc, MANAGER CASE [address] [place] [address] documented as of this encounter Procedures Procedure Name Priority Date/Time Associated Diagnosis Comments PACEART REPORT Routine 07/03/2020 11:51 AM EDT documented in this encounter Results * PACEART REPORT (07/03/2020 11:51 AM EDT) 07/03/2020 11:5 1 AM EDT Narrative [facility] - 07/07/2020 1:53 PM EDT No dysrhythmias recorded Sensing, threshold, & impedance stable without evidence of malfunction yaquelin SCHAFERCSD us Melecio Rico MD [facility] CARDIAC CATH ORDERA BLES Final Result [facility] 1 [place], [place] [id number] documented in this encounter Visit Diagnoses Not on filedocumented in this encounter Additional Health Concerns Assessment Noted Time A fall risk assessment has been complete d for the patient 07/13/2019 9:07 AM EDT documented as of this encounter Care Teams Gas Distribution Supervisor Relationship Specialty Start Date End Date Teja Gomez MD [address] [place] [address] [address] [place] [address] PCP - General Family Medicine 12/14/15 Melecio Rico MD [address] [facility] [place] [address] [place] [address] Internal Medicine-Cardiovascular Disease 05/12/23 documented as of this encounter
--- OUTSIDE RECORDS SUMMARY | 2025-05-19 12:42 | XMS_ITS | Clinical Summary ---
Author Organization [facility] Address [address] [place] [address] Care Team Providers Care Grinding And Spraying Supervisor Name Role Phone Teja Gomez M.D. Primary Care Provider [phone] Source Comments [facility] is fully rolled out with thefollowing exceptions:General Clinical Research [facility] Allergies No known active allergies Medications AMIODARONE HCL PO Take 100 mg by mouth every other day. Active ASPIRIN PO Take 81 mg by mouth 1 time a day. Active LEVOTHYROXINE SODIUM PO Take 25 mcg by mouth 1 time a day. Active PANTOPRAZOLE SODIUM PO Take 20 mg by mouth 1 time a day. Active PRAVASTATIN SODIUM PO Take 40 mg by mouth . Active meclizine (ANTIVERT) 25 MG tablet Take 25 mg by mouth 2 times daily. Active POTASSIUM CHLORIDE PO Take 3 mEq by mouth 2 times a day. Active hydrochlorothiaz rhea (HYDRODIURIL) 50 MG tablet Take 50 mg by mouth 1 time a day. Active Coenzyme Q10 (COQ-10 PO) Take 100 mg by mouth 1 time a day. Active Multiple Vitamins-Mineral s (VISION FORMULA/LUTEIN PO) Active ciprofloxacin (CILOXAN) 0.3 % ophthalmic solutionIndicati ons:Confirmed infection Four to five drops to Left ear twice daily for 3 days. 1 Bottle 0 07/18/2015 Active finasteride (PROPECIA) 5 MG tablet Take 5 mg by mouth 1 time a day. Active allopurinol (ZYLOPRIM) 300 MG tablet Take 300 mg by mouth 1 time a day. Active warfarin (COUMADIN) 5 MG tablet Take 5 mg by mouth 1 time a day. Active rosuvastatin (CRESTOR) 20 MG tablet Take 20 mg by mouth at bedtime. 6 07/13/2018 Active spironolactone (ALDACTONE) 25 MG tablet Take 25 mg by mouth 1 time a day. Active Family History Medical History Relation Name Comments Bleeding Disorder Neg Hx Bleeding Prob Neg Hx Hearing Loss Neg Hx Malignant Hyperthermia Neg Hx Social History Tobacco Use Types Packs/Day Years Used Date Smoking Tobacco: Never Assessed Intimate Partner Violence Answer Date R ecorded If you are in a relationship , do you feel safe in that relationship? Not on file 03/09/2019 If you are in a relationship , do you feel safe in that relationship? Yes 03/09/2019 Safety and Environment Answer Date Hayder rded Do you have any concerns of physical abuse, sexual abuse, or neglect of your child? Not on file 03/09/2019 Adult hurting you or family (11-18) Not on file 03/09/2019 Someone touched you in a sexual way? (-18) Not on file 03/09/2019 Is someone hurting your or your family? No 03/09/2019 Historical abuse worry Not on file 9 If you have firearms in the home, are they all in locked storage AND unloaded? Not on file 03/09/2019 Sex and Gender Information Value Date Recorded Sex Assigned at Not on file Legal Sex Male 5:34 AM EST Gender Identity Not on file Sexual Orientation Not on file Last Filed Vital Signs Vital Sign Reading Time Taken Comments Blood Pressure - - Pulse - - Temperature - - Respiratory Rate - - Oxygen Saturation - - Inhaled Oxygen Concentration - - Weight 128.5 kg (283 lb 4.7 oz) 08/31/2021 9:29 AM EDT Height - - Body Mass Index - - Plan of Treatment Health Maintenance Due Date Last Done Comments MMR IMMUNIZATION (1 of 1 - Standard series) 1943 VARICELLA IMMUNIZATION (1 of 2 - 13+ 2-dose series) 1955 DTAP/Tdap/Td IMMUNIZATION (2 - Tdap) 04/13/2010 03/16/2010 Respiratory Syncytial Virus (RSV) >60yo or (1 - 1-dose 75+ series) 2017 COVID-19 Vaccine (2023-2 5 season) 2024 AMB SEASONAL FLU VACCINE (#1) 07/18/2025 HEPATITIS B IMMUNIZATION Aged Out No longer eligible based on patient's age to complete this topic HIB IMMUNIZATION Aged Out No longer e ligible based on patient's age to complete this topic HPV IMMUNIZATION Aged Out No longer e ligible based on patient's age to complete this topic IPV IMMUNIZATION Aged Out No longer e ligible based on patient's age to complete this topic MCV4 IMMUNIZATION Aged Out No longer eligible based on patient's age to complete this topic MENINGOCOCCAL B VACCINE Aged Out No l onger eligible based on patient's age to complete this topic Respiratory Syncytial Virus (RSV) <20mo Aged Out No longer eligible b ased on patient's age to complete this topic Insurance [employer] MEDICARE [place] Care Teams Grinding And Spraying Supervisor Relationship Specialty Start Date End Date Teja Gomez M.D. [address] [place] [address] PCP - General 11/14/10
--- OUTSIDE RECORDS SUMMARY | 2025-05-19 12:42 | XMS_ITS | Encounter Summary ---
Author Organization [place] [address] Care Team Providers Care Damper Maker Name Role Phone Teja Gomez MD Primary Care Provider [phone] Melecio Rico MD Unavailable [phone] Encounter Details Date Type Department Care Team (Late st Contact Info) Description 09/16/2022 Orders Only SEP H&V [place] [address] [facility] [address] [place] [address] Melecio Rico MD 711 [place], [place] [phone] Social History Tobacco Use Types Packs/Day Years [...] suspected to have Coronavirus/COVID-19? No / Unsure 09/13/2022 7:34 AM EDT documented as of this encounter Plan of Treatment Upcoming Encounters Date Type Department Care Team (Late st Contact Info) Description 06/15/2025 9:30 AM EDT Appointment [facility] [address] [place] [address] 07/01/2025 9:30 AM EDT Office Visit SEP GASTRO NPTFTT 1400 [place] [address] Geovanni Chau MD 340 [place], [place] [phone] 10/03/2025 10:00 AM EST Office Visit SEP H&V [address] [address] Melecio Rico MD [address] [place] [address] 01/23/2026 10:30 AM EDT Office Visit SEP Sleep Medicine [address] [address] Lilly Kc, PACK MASTER [address] [place] [address] documented as of this encounter Procedures Procedure Name Priority Date/Time Associated Diagnosis Comments PACEART REPORT Routine 09/16/2022 1:23 PM EDT documented in this encounter Results * PACEART REPORT (09/16/2022 1:23 PM EDT) 09/16/2022 1:23 PM EDT Narrative [facility] - 09/20/2022 10:45 AM EDT in office device check 1 fast A & V on 04-27-22 x 9 sec (1:) see attachments for detailed report us Melecio Rico MD [facility] CARDIAC CATH ORDERA BLES Final Result [facility] 1 [place] [address] documented in this encounter Visit Diagnoses Not on filedocumented in this encounter Additional Health Concerns Assessment Noted Time A fall risk assessment has been complete d for the patient 07/13/2019 9:07 AM EDT documented as of this encounter Care Teams Damper Maker Relationship Specialty Start Date End Date Teja Gomez MD 1210 [facility] [address] [place] [address] PCP - General Family Medicine 12/14/15 Melecio Rico MD [address] [place] [address] [place] [address] Internal Medicine-Cardiovascular Disease 05/12/23 documented as of this encounter
--- OUTSIDE RECORDS SUMMARY | 2025-05-19 12:42 | XMS_ITS | Encounter Summary ---
Author Organization [place] [address] Care Team Providers Care Regional Account Manager Name Role Phone Teja Gomez MD Primary Care Provider [phone] Melecio Rico MD Unavailable [phone] Encounter Details Date Type Department Care Team (Late st Contact Info) Description 01/08/2021 Orders Only SEP [facility] [place] [facility] [address] [place] [address] Melecio Rico MD [address] [place], [place] [id number] Social History Tobacco Use Types Packs/Day Years [...] have Coronavirus / COVID-19? Unable to assess 01/09/2021 9:15 AM EST documented as of this encounter Plan of Treatment Upcoming Encounters Date Type Department Care Team (Late st Contact Info) Description 06/15/2025 9:30 AM EDT Appointment G[facility] [address] [place] [address] 07/01/2025 9:30 AM EDT Office Visit SEP GASTRO NPTFTT [address] [place] [address] Geovanni Chau MD [address] [place], [place] [phone] 10/03/2025 10:00 AM EST Office Visit SEP H&V [address] [address] Melecio Rico MD [address] [place] [address] 01/23/2026 10:30 AM EDT Office Visit SEP Sleep Medicine [address] [address] Lilly Kc, BACK TENDER [address] [place] [address] documented as of this encounter Procedures Procedure Name Priority Date/Time Associated Diagnosis Comments PACEART REPORT Routine 01/08/2021 9:15 PM EST documented in this encounter Results * PACEART REPORT (01/08/2021 9:15 PM EST) 01/08/2021 9:15 PM EST Narrative [facility] - 01/09/2021 8:59 AM EST Per Carelink- No Events since last session. See attachments for full report and strips...lgy/rma us Melecio Rico MD [facility] CARDIAC CATH ORDERA BLES Final Result [facility] [address] [place], [place] [id number] documented in this encounter Visit Diagnoses Not on filedocumented in this encounter Additional Health Concerns Assessment Noted Time A fall risk assessment has been complete d for the patient 07/13/2019 9:07 AM EDT documented as of this encounter Care Teams Regional Account Manager Relationship Specialty Start Date End Date Teja Gomez MD [address] [facility] [address] [place] [phone] PCP - General Family Medicine 12/14/15 Melecio Rico MD [address] [facility] [place] [address] Internal Medicine-Cardiovascular Disease 05/12/23 documented as of this encounter
--- OUTSIDE RECORDS SUMMARY | 2025-05-19 12:42 | XMS_ITS | Encounter Summary ---
Author Organization [place] [address] Care Team Providers Care Mid Teacher Name Role Phone Teja Gomez MD Primary Care Provider [phone] Melecio Rico MD Unavailable [phone] Encounter Details Date Type Department Care Team (Late Contact Info) Description 11/05/2021 Orders Only SEP H&V [facility] [place] [facility] [address] [place] [address] Melecio Rico MD [address] [place], [place] [phone] Social History Tobacco Use Types Packs/Day Years [...] have Coronavirus / COVID-19? No / Unsure 10/22/2021 8:35 AM EST documented as of this encounter Plan of Treatment Upcoming Encounters Date Type Department Care Team (Late st Contact Info) Description 06/15/2025 9:30 AM EDT Appointment [facility]RT [facility] [address] [place] [address] 07/01/2025 9:30 AM EDT Office Visit SEP GASTRO NPTFTT [address] [place] [address] Geovanni Chua MD [address] [place], [place] [phone] 10/03/2025 10:00 AM EST Office Visit SEP H&V [address] [address] Melecio Rico MD [address] [place] [address] 01/23/2026 10:30 AM EDT Office Visit SEP Sleep Medicine [address] [address] Lilly Kc, CUTTING INSPECTOR [address] [place] [address] documented as of this encounter Procedures Procedure Name Priority Date/Time Associated Diagnosis Comments PACEART REPORT Routine 11/05/2021 1:50 AM EST documented in this encounter Results * PACEART REPORT (11/05/2021 1:50 AM EST) 11/05/2021 1:50 AM EST Narrative [facility] - 11/05/2021 11:20 AM EST Per Carelink- No Events since last session. See attachments for detailed report and strips...lgy/rma us Melecio Rico MD [facility] CARDI[facility] CATH ORDERA BLES Final Result [facility] [address] [place], [place] [phone] documented in this encounter Visit Diagnoses Not on filedocumented in this encounter Additional Health Concerns Assessment Noted Time A fall risk assessment has been complete d for the patient 07/13/2019 9:07 AM EDT documented as of this encounter Care Teams Mid Teacher Relationship Specialty Start Date End Date Teja Gomez MD [address] [place] [phone] PCP - General Family Medicine 12/14/15 Melecio Rico MD [address] [facility] [place] [address] [place] [address] Internal Medicine-Cardiovascular Disease 05/12/23 documented as of this encounter
--- OUTSIDE RECORDS SUMMARY | 2025-05-19 12:42 | XMS_ITS | Clinical Summary ---
Author Organization [facility] Address [address] [place] [address] Care Team Providers Care Vision Care Associate Name Role Phone Teja Gomez MD Primary Care Provider [phone] Noble Briseno MD Unavailable [phone] Allergies No known active allergies Medications amiodarone (PACERONE) 200 mg tablet Take 100 mg by mouth every 48 hours. Active hydrochlorothia zide (HYDRODIURIL) 50 mg tablet Take 50 mg by mouth daily. Active levothyroxine (SYNTHROID) 25 mcg tablet Take 25 mcg by mouth daily. Active meclizine (ANTIVERT) 25 mg tablet Take 25 mg by mouth every 12 hours. Active pantoprazole (PROTONIX) 40 mg Tablet, Delayed Release (E.C.) Take 40 mg by mouth daily. Active pravastatin (PRAVACHOL) 40 mg tablet Take 40 mg by mouth nightly at bedtime. Active Coenzyme Q10 100 mg Capsule Take 100 mg by mouth daily. Active potassium chloride (K-DUR, KLOR-CON M20) 20 mEq SR tablet Take 20 mEq by mouth daily. Active oxyCODONE 5 mg PO immediate release tablet Take 1-2tabs every 4-6 hours as needed for pain 90 Tab 03/20/2016 11:40 AM EDT 6 Active acetaminophen (TYLENOL) 500 mg tablet Take 1 Tab by mouth every 6 hours as needed for Pain. 0 6 Active meloxicam (MOBIC) 15 mg tablet Take 1 Tab by mouth daily. 0 6 Active gabapentin (NEURONTIN) 300 mg capsule Take 1 Cap by mouth every evening. 30 Cap 0 6 Active aspirin 325 mg tablet Take 1 Tab by mouth 2 times daily (after breakfast and dinner). 70 Tab 0 6 Active DULoxetine (CYMBALTA) 30 mg Capsule, Delayed Release(E.C.) Take 1 Cap by mouth daily. 30 Cap 0 6 Active Active Problems Problem Noted Date Diagnosed Date Primary osteoarthritis of left hip 03/18/2016 Morbid obesity (CMS HCC) 03/18/2016 Family History Medical History Relation Name Comments Heart Problems Brother CABG Heart Problems Father cardiomyopath y Heart Problems Mother CHF Anesthesia Complications Neg Hx Relation Name Status Comments Brother Father Mother Social History Tobacco Use Types Packs/Day Years Used Date Smoking Tobacco: Never Smokeless Tobacco: Never Alcohol Use Standard Drinks/Week Comments No 0 (1 standard drink = 0.6 oz pur e alcohol) Sex and Gender Information Value Date Recorded Sex Assigned at Not on file Legal Sex Male 5:26 PM EST Gender Identity Not on file Sexual Orientation Not on file Last Filed Vital Signs Vital Sign Reading Time Taken Comments Blood Pressure 128/66 03/20/2016 11:32 AM EDT Pulse 69 03/20/2016 11:32 AM EDT Temperature 36.9 C (98.5 F) 03/20/2016 11:32 AM EDT Respiratory Rate 17 03/20/2016 11:32 AM EDT Oxygen Saturation 94% 03/20/2016 11:32 AM EDT Inhaled Oxygen Concentration - - Weight 116.8 kg (257 lb 8 oz) 03/19/2016 1:24 PM EDT Height 167.6 cm (5' 6 ) 03/19/2016 1:24 PM EDT Body Mass Index 41.56 03/19/2016 1:24 PM EDT Plan of Treatment Health Maintenance Due Date Last Done Comments Lipid Screening 1960 Tetanus Vaccination (Every 10 Years) 1960 Pneumococcal Vaccine: 50+ Years (1 of 1 - PCV) 992 Zoster-RZV(Shingrix) (1 of 2) 1992 Fall Risk Assessment 2007 RSV Vaccines (1 - 1-dose 75+ series) 2017 COVID-19 Vaccine ( - season) 2024 Advance Care Planning 11/17/2024 Depression Screening 11/17/2024 Influenza Vaccination (#1) 2025 Medical Devices Implanted Type Area Herb Counselor Device Identifier Shelf Expiration Date Model / Serial / Lot Pinn Sector W/Gription 54mm Implanted:Qty: 1 on 03/19/2016 by Noble Briseno MD at [facility] Left: Hip * J \T\ J DEPUY 01/14/2026 1217-32 -[id number] / / [id number] Altrx Acetabular Liner 36mm Implanted:Qty: 1 on 03/19/2016 by Noble Briseno MD at [facility] Left: Hip * J \T\ J DEPUY 01/14/2021 1221-36 -[id number] / / [id number] Stem Fem Std Collar Corail 12 Implanted:Qty: 1 on 03/19/2016 by Noble Briseno MD at [facility] Left: Hip * J \T\ J DEPUY 10/16/2020 [id number] / / [id number] Hd Oxinium Fem 10/30 36 Mm -3 Implanted:Qty: 1 on 03/19/2016 by Noble Briseno MD at [facility] Left: Hip * COWAN \T\ NEPHEW 11/25/2025 [id number] / / [id number] Insurance MEDICARE Member Subscriber Plan / Payer (Ef fective for All Dates) Name:Mayur Marks Member ID:[id number] Relation to Subscriber:Self Name:Mayur Marks Subscriber ID:[id number] Payer ID:[id number] Group ID:Not on file Type:Medicare Address: [address] MEDICARE Advance Directives For more information, please contact: [phone] Documents on File Type Date Recorded Patient Executive Assistant Expl anation Advance Directives and Living Will 03/19/2016 6:37 AM POA & LIVING WILL * Full Code (Latest Code Status on File) Date Activated Date Inactivated Comments 03/19/2016 1:25 PM 03/20/2016 4:34 PM Care Teams Vision Care Associate Relationship Specialty Start Date End Date Teja Gomez MD [address] [place] [address] PCP - General Family Medicine 01/18/16 Noble Briseno MD [address] [place] [place] [address] [place] [address] Orthopedic Surgery 11/24/22
--- OUTSIDE RECORDS SUMMARY | 2025-05-19 12:42 | XMS_ITS | Encounter Summary ---
Author Organization [place] [address] Care Team Providers Care Instructor Warper Name Role Phone Galindo Gomez MD Primary Care Provider [phone] Teja Gomez MD Primary Care Provider [phone] Melecio Rico MD Unavailable [phone] Encounter Details Date Type Department Care Team (Late st Contact Info) Description 01/11/2010 Orders Only [facility]P H&V CV [place] [address] [place] [address] Klaus Knapp MD [address] [place] [phone] (Fax) Social History Tobacco Use Types Packs/Day Years [...] 06/15/2025 9:30 AM EDT Appointment [facility] [address] [facility] [place] [address] 07/01/2025 9:30 AM EDT Office Visit SEP GASTRO NPTFTT [address] [place] [address] Geovanni Chau MD [address] [place] [address] 10/03/2025 10:00 AM EST Office Visit SEP H&V [place] [address] [facility] [place] [phone] Melecio Rico MD [address] [facility] [place] [phone] 01/23/2026 10:30 AM EDT Office Visit SEP Sleep Medicine [address] [address] Lilly Kc Leena, TERADATA SOLUTION ARCHITECT [address] [place] [address] documented as of this encounter Procedures Procedure Name Priority Date/Time Associated Diagnosis Comments ECHO - HISTORICAL Routine 01/11/2010 12: 00 AM EST documented in this encounter Results * ECHO - HISTORICAL (01/11/2010 12:00 AM EST) Anatomical Region Laterality Modality Other 01/11/2010 Narrative 11/19/2011 3:54 AM EST NOTICE: This report was electronically copied on 01/02/2012 from historical data generated by a practice prior to that practice using [facility] Medical Records. Performing Provider: Klaus Mccurdy M.D. Klaus Knapp MD IMG ECHO ORDERABLES Final Result documented in this encounter Visit Diagnoses Not on filedocumented in this encounter Care Teams Instructor Warper Relationship Specialty Start Date End Date Galindo Gomez MD [address] [facility] [address] [place] [address] PCP - General Psychiatry & Neurology-Neurology 10/16/11 12/13/15 Teja Gomez MD 1210 [facility] [address] [place] [address] PCP - General Family Medicine 12/14/15 Melecio Rico MD [address] [facility] [place] [address] [place] [address] Internal Medicine-Cardiovascular Disease 05/12/23 documented as of this encounter
--- OUTSIDE RECORDS SUMMARY | 2025-05-19 12:42 | XMS_ITS | Clinical Summary ---
Author Organization [facility] Address [address] [place] [address] Phone Care Team Providers Care Distribution Field Technician Name Role Phone Teja Gomez MD Primary Care Provider [phone] Melecio Rico MD Unavailable [phone] Allergies No known active allergies Medications LEVOTHYROXINE SODIUM (LEVOTHYROXINE ORAL) Take 25 mcg by mouth daily. Active PANTOPRAZOLE SODIUM (PROTONIX ORAL) Take 40 mg by mouth daily. Active Vitamin A-Vitamin C-Vit E-Min Oral Tablet Take 1 Tablet by mouth daily. Active aspirin 81 mg tablet Take 81 mg by mouth daily. Active meclizine (ANTIVERT) 25 mg tablet Take 25 mg by mouth 2 times daily. Active Coenzyme Q10 100 mg Oral Capsule Take 100 mg by mouth daily. Active finasteride (PROSCAR) 5 mg Oral Tablet Take 5 mg by mouth daily. Active allopurinol (ZYLOPRIM) 300 mg Oral Tablet Take 300 mg by mouth. Active rosuvastatin (CRESTOR) 20 mg Oral Tablet Take 20 mg by mouth nightly. 6 05/22/20 18 Active amiodarone (PACERONE) 200 mg Oral TabletIndication s:Paroxysmal atrial fibrillation (HCC) Take 0.5 Tabs by mouth daily. 30 Tab 6 06/12/20 18 Active loratadine (CLARITIN) 10 mg Oral Tablet Take 10 mg by mouth as needed (allergies). Active spironolactone (ALDACTONE) 25 mg Oral TabletIndication s:Essential hypertension Take 1 Tab by mouth daily. 30 Tab 11 06/13/20 21 Active hydroCHLOROthiaz rhea (MICROZIDE) 12.5 mg Oral Capsule Take 12.5 mg by mouth daily. Taking every other day. Active methylcellulose (CITRUCEL) 500 mg Oral TabletIndication s:Alternating constipation and diarrhea Take 1 Tablet by mouth 2 times daily. 60 Tablet 2 02/27/20 24 Active Bifidobacterium Infantis (ALIGN) 4 mg Oral CapsuleIndicatio ns:Alternating constipation and diarrhea Take 1 Capsule by mouth daily. 30 Capsule 2 02/27/20 24 Active albuterol (PROVENTIL HFA;VENTOLIN HFA) 90 mcg/actuation Inhl HFA Aerosol Inhaler Inhale 2 Puffs into the lungs every 4 hours as needed. 04/26/20 24 Active potassium chloride (KLOR-CON M) 20 mEq Oral Tab Sust.Rel. Particle/Crystal Take 20 mEq by mouth daily. 07/01/20 24 Active valACYclovir (VALTREX) 500 mg Oral Tablet Take 500 mg by mouth every 12 hours. Active warfarin (COUMADIN) 5 mg Oral TabletIndication s:Paroxysmal atrial fibrillation (HCC) Take 5mg (1 Tablet) every Friday and 2.5mg (1/2 Tablet) all other days OR as instructed per [facility]. (90 day supply) 51 Tablet 1 02/03/20 25 Active metoprolol succinate (TOPROL-XL) 50 mg Oral Tablet Sustained Release 24 hrIndications:PV C (premature ventricular contraction) Take 1 Tablet by mouth daily. 100 Tablet 1 05/03/20 25 Active lamiVUDine (EPIVIR) 100 mg Oral TabletIndication s:Chronic hepatitis B with cirrhosis (HCC) Take 1 Tablet by mouth daily. 30 Tablet 1 05/03/20 25 Active metoprolol succinate (TOPROL-XL) 50 mg Oral Tablet Sustained Release 24 hrIndications:PV C (premature ventricular contraction) Take 1 Tablet by mouth daily. 90 Tablet 1 11/01/20 24 025 Discontinued lamiVUDine (EPIVIR) 100 mg Oral TabletIndication s:Chronic hepatitis B with cirrhosis (HCC) Take 1 Tablet by mouth daily. 30 Tablet 3 01/04/20 25 025 Discontinued Active Problems Problem Noted Date Diagnosed Date PVC (premature ventricular contraction) 01/18/20 23 Chronic hepatitis B with cirrhosis 08/25/2019 Cholecystitis 05/25/2019 Overview (05/25/2019): Added automatically from request for surgery [id number] Lymphadenopathy 05/25/2019 Overview (05/25/2019): Added automatically from request for surgery [id number] Gallbladder mass 05/19/2019 Meniere disease 06/25/2012 Pacemaker 05/14/2012 Overview (01/17/2023): Medtronic Dual PPM generator change 01/08/[address] Rico Paroxysmal atrial fibrillation 03/26/2012 Overview (05/21/2019): 05/21/19: Maintained on Warfarin EMERSON (obstructive sleep apnea) wears BPAP 012 Essential hypertension 03/26/2012 Dyslipidemia 03/26/2012 Hypothyroidism 03/26/2012 Class 3 severe obesity due t o excess calories without serious comorbidity with body mass index (BMI) of 40.0 to 44.9 in adult 03/26/2012 Family history of early CAD 03/26/2012 Encounters Date Type Department Care Team Description 05/02/2025 Telephone [facility]P [facility] [address] [place] [address] Geovanni Chau MD Medication Refill 05/02/2025 Refill SEP H&V [address] [address] Melecio Rico MD Medication Refill 04/20/2025 9:17 AM EDT - 04/20/2025 11:59 PM EDT Hospital Encounter [facility] [address] [place] [address] Paroxysmal atrial fibrillation (HCC) (Primary Dx); Encounter for therapeutic drug monitoring; intermodal customer service (current) use of anticoagulants Discharge Disposition: Home or Self Care 02/25/2025 9:34 AM EDT - 02/25/2025 11:59 PM EDT Hospital Encounter [facility] [address] [place] [address] Paroxysmal atrial fibrillation (HCC) (Primary Dx); Encounter for therapeutic drug monitoring; intermodal customer service (current) use of anticoagulants Discharge Disposition: Home or Self Care 02/17/2025 Orders Only SEP H&V [place] [address] [facility] [address] [place] [phone] Melecio Rico MD Vector Remote Device from Last 3 Months Immunizations Immunization Administration Dates Next Due Td, Unspecified Formulation 03/16/2010 Surgical History Surgery Date Site/Laterality Comments HERNIA REPAIR umbilical ROTATOR CUFF REPAIR right APPENDECTOMY CARDIAC CATHETERIZATION 11/17/2002 - 11/16/2003 normal coronary arteries and pEF PACEMAKER INSERTION 03/17/2012 - 04/16/2012 TOTAL HIP ARTHROPLASTY vsaile hips SKIN CANCER EXCISION 08/20/2016 EYE SURGERY L cataract CHOLECYSTECTOMY, LAPAROSCOPIC 06/01/2019 N/A Laparoscopic cholecystectomy ; Surgeon: Timothy Macias MD; Location: [facility]; Service: General COLONOSCOPY UPPER GASTROINTESTINAL ENDOSCOPY UPPER GASTROINTESTINAL ENDOSCOPY 08/25/2019 N/A ESOPHAGOGASTRODUODENOSCOPY ; Surgeon: Geovanni Chau MD; Location: [facility]; Service: Endoscopy Medical History Medical History Date Comments Atrial fibrillation (HCC) Thyroid disease Arthritis Hypertension echo 10/2011 EF 60-65%, diastolic dysfunction, mod LAD, mild RAD, mild MR Syncope and collapse EMERSON (obstructive sleep apnea) Hyperlipidemia Cardiac dysrhythmia, unspecified Meniere disease 06/25/2012 Family History Medical History Relation Name Comments Heart Surgery Brother Heart Attack Father Heart Disease Father Heart Failure Mother Relation Name Status Comments Brother Father (Age 49) 1968 Mother Alive Social History Tobacco Use Types Packs/Day Years Used Date Smoking Tobacco: Never Smokeless Tobacco: Never Tobacco Cessation:Counseling Given: Not Answered Alcohol Use Standard Drinks/Week Comments No 0 (1 standard drink = 0.6 oz pur e alcohol) Sexually Active Control Partners Comments Not Currently Sex and Gender Information Value Date Recorded Sex Assigned at Not on file Legal Sex Male 5:43 AM EDT Gender Identity Not on file Sexual Orientation Not on file Obstetrics History Last Filed Vital Signs Vital Sign Reading Time Taken Comments Blood Pressure 126/74 02/04/2025 10:44 AM EDT Pulse 81 02/04/2025 10:44 AM EDT Temperature 36.7 C (98.1 F) 11/24/2023 9:10 AM EST Respiratory Rate 17 11/24/2023 9:10 AM EST Oxygen Saturation 98% 02/04/2025 10:44 AM EDT Inhaled Oxygen Concentration - - Weight 134.7 kg (297 lb) 02/04/2025 10:44 AM EDT Height 167.6 cm (5' 6 ) 02/04/2025 10:44 AM EDT Body Mass Index 47.94 02/04/2025 10:44 AM EDT Plan of Treatment Upcoming Encounters Date Type Department Care Team (Late st Contact Info) Description 06/15/2025 9:30 AM EDT Appointment [facility] [address] [facility] [place] [address] 07/01/2025 9:30 AM EDT Office Visit [facility]O [facility] [address] [place] [address] Geovanni Chau MD [address] [place] [address] [phone] 10/03/2025 10:00 AM EST Office Visit SEP H&V [address] [address] Melecio Rico MD [address] [place] [address] 01/23/2026 10:30 AM EDT Office Visit SEP Sleep Medicine [address] [address] Lilly Kc, MACHINE FILLER SHREDDER [address] [place] [address] Health Maintenance Due Date Last Done Comments Wellness Exam Medicare 1943 Hepatitis B Vaccine (1 of 3 - Risk 3-dose series) 2002 Pneumococcal Vaccine 50+ (2 of 2 - PCV) 10/23/2011 10/23/2010 RSV or 60+ (1 - 1-dose 75+ series) 2017 COVID-19 Vaccine ( season) 2025 09/15/2024, 09/15/2023, 09/16/2022, Additional history exists Influenza Vaccine (#1) 2025 , 09/15/2023, 09/16/2022, Additional history exists DTaP/TDaP/Td (2 - Td or Tdap) 01/17/2028 01/16/2018, 03/16/2010 Zoster Completed 11/14/2020, 08/18, 01/12/2010 Meningococcal B Vaccine Aged Out No l onger eligible based on patient's age to complete this topic Medical Devices Implanted Type Area Industrial Sales Manager Device Identifier Shelf Expiration Date Model / Serial / Lot Pacemaker Nancy Xt Dr Mri Surscn 2chmbr 46.6x50.8x7.4mm - [id number] Implanted:Qty: 1 on 01/08/2023 by Melecio Rico MD at [facility] Pacemaker [employer]:PIPE [employer] [id number] 05/30/2024 [id number] / [id number] G / Bilateral Total Hip Replacements Lead Capsurefix Mri 5086 Is-I Bi Artrial 58cm - [id number] Implanted:Qty: 1 on 04/08/2012 by Melecio Rico MD at [facility] [employer] MECHANIC [employer]:CARDI AC SURG SRVC [id number] / [id number] V / Lead Capsurefix Mri 5086 Is-I Bi Artrial 52cm - [id number] Implanted:Qty: 1 on 04/08/2012 by Melecio Rico MD at [facility] [employer]:CARDI AC SURG SRVC [id number] / [id number] V / Envelope Tyrx Absb Antbtc Impl 2.9x3.3in Sgl-Healy Foil [facility] - [id number] Implanted:Qty: 1 on 01/08/2023 by Melecio Rico MD at [facility] [employer]:PIPE [employer] [id number] 10/17/2023 [id number] / / [id number] Explanted Type Area Industrial Sales Manager Device Identifier Shelf Expiration Date Model / Serial / Lot Pacemaker Revo Mri Dual Chamber - [id number] Implanted:Qty: 1 on 04/08/2012 by Melecio Rico MD at [facility] [employer] Explanted:Qty: 1 on 01/08/2023 at [facility] [employer]:CARDIAC SURG SRVC [id number] / [id number] / Procedures Procedure Name Priority Date/Time Associated Diagnosis Comments POCT PT/INR Routine 04/20/2025 9:28 AM EDT Paroxysmal atrial fibrillation (HCC) Encounter for therapeutic drug monitoring retirement (current) use of anticoagulants POCT PT/INR Routine 02/25/2025 9:36 AM EDT Paroxysmal atrial fibrillation (HCC) Encounter for therapeutic drug monitoring retirement (current) use of anticoagulants [place] REM INTERROG PM/LDLS PM <90 D PHYS/QHP Routine 02/17/2025 12:00 AM EDT Vector Remote Device from Last 3 Months Results * POCT PT/INR (04/20/2025 9:28 AM EDT) Only the most recent of2 resultswithin the time period is included. [facility]NAGEMENT [facility] INR 2.10 (ratio) [facility] Lot Number [facility] Expiration Date [facility] SeriAl # [facility] 04/20/2025 9:28 AM EDT us Melecio Rico MD POINT OF CARE TEST ORDE RABANDRADE Final Result Performing Organization Address City/[facility]/ZIP Co de Phone Number [facility] [address] [place] [address] * VECTOR REMOTE DEVICE (02/17/2025 12:00 AM EDT) 02/17/2025 Narrative [facility] - 02/17/2025 12:00 AM EDT No episodes. Patient on AC. Mode: AAIR<=>DDDR. AP: 98%. ATHLETE MANAGER: 0.1%. Normal device function. Melecio Rico MD [facility] CARDIAC CATH ORDERA BLES Final Result [facility] [address] [place] [address] from Last 3 Months Insurance [place]ICARE [place] PART A AND B [place] [employer] [place] [employer] MED[place] PART A AND B Advance Directives For more information, please contact: [phone] Documents on File Type Date Recorded Patient Digital Ad Trafficker Expl anation ADVANCE DIRECTIVE 11/24/2023 * Full Code (Latest Code Status on File) Date Activated Date Inactivated Comments 05/19/2019 2:50 AM 05/21/2019 7:49 PM Care Teams Distribution Field Technician Relationship Specialty Start Date End Date Teja Gomez MD [facility] [address] [place] [address] PCP - General Family Medicine 12/14/15 Melecio Rico MD [address] [place] [address] [address] [place] [address] Internal Medicine-Cardiovascular Disease 05/12/23
--- OUTSIDE RECORDS SUMMARY | 2025-05-19 12:42 | XMS_ITS | Patient Health Record ---
Author Organization [facility]Tip Marques MD Address [address] [place], [place] [address]e [address] [place] [address] Care Team Providers Care Assembler Motor Vehicle Name Role Phone Jason RODRIGUEZ, Teja Medley Primary Care Provider Un available Tip Marques Unavailable [phone] Reason For Referral No Information Medications Medication SIG (Take, Route, Frequency, Duration) Notes Start Date End Date Status Lidocaine HCl 2 % 15 ml as needed Mouth/Throat q 1-2 hrs prn; Duration: 05 days l Active hydroCHLOROthiazide 25 MG TAKE 3 TABLETS BY MOUTH ONCE DAILY; Duration: 30 Active Potassium Chloride Cleopatra ER 2 0 MEQ TAKE 1 TABLET BY MOUTH DAILY; Duration: 30 Active Ativan 1 MG 1 tablet 1 hr prior to test Orally qd; Duration: 1 dose 07/21/2013 Active Problems Problem Type SNOMED Code ICD Code Onset Dates Problem Status W/U Status Risk Notes Problem Macroglossia (44387590) Macroglossia (750.15) Active confirmed Problem Vertigo (881325935) Vertigo (780.4) Active confirmed Problem 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 confirmed Plan Of Treatment No Information Insurance Providers Payer Name Payer Address Payer Phone Subscriber Number Group Number Insured Name Patient Relationship to Insured Coverage Start Date Coverage End Date MEDICARE [place] [address] [phone] [id number] Mayur Martin Self - [place] [address] [id number] Mayur Martin Self - patient is the insured Medical (General) History Medical History History ICD Code Thyroid Disease Yes hypertension Yes asthma No Diabetes No Diabetes Insulin Dependent No Heart Disease Yes Cancer No Lung Disease No kidney stones No Surgical History Surgery Date(Month/Year) tonsillectomy adenoidectomy Ear Heart Abdominal Joint/Bone
--- OUTSIDE RECORDS SUMMARY | 2025-05-19 12:42 | XMS_ITS | Encounter Summary ---
Author Organization [place] [address] Care Team Providers Care Gas Appliance Servicer Name Role Phone Teja Gomez MD Primary Care Provider [phone] Melecio Rico MD Unavailable [phone] Encounter Details Date Type Department Care Team (Late st Contact Info) Description 04/15/2021 Orders Only [facility] [place] [facility] [address] [place] [address] Melecio Rico MD [address] [place], [place] [id number] Social History Tobacco Use Types Packs/Day Years [...] have Coronavirus / COVID-19? No / Unsure 04/09/2021 8:10 AM EDT documented as of this encounter Plan of Treatment Upcoming Encounters Date Type Department Care Team (Late st Contact Info) Description 06/15/2025 9:30 AM EDT Appointment [facility] [address] [place] [address] 07/01/2025 9:30 AM EDT Office Visit SEP GASTRO [facility] [address] [place] [address] Geovanni Chau MD [address] [place], [place] [phone] 10/03/2025 10:00 AM EST Office Visit SEP H&V [address] [address] Melecio Rico MD [address] [place] [phone] 01/23/2026 10:30 AM EDT Office Visit SEP Sleep Medicine [address] [address] Lilly Kc, CEMENT GRINDING MILL OPERATOR [address] [place] [address] documented as of this encounter Procedures Procedure Name Priority Date/Time Associated Diagnosis Comments PACEART REPORT Routine 04/15/2021 9:19 PM EDT documented in this encounter Results * PACEART REPORT (04/15/2021 9:19 PM EDT) 04/15/2021 9:19 PM EDT Narrative [facility] - 04/17/2021 11:32 AM EDT Per Carelink- No events since last session See attachment for full report and details. lgy/rma us Melecio Rico MD [facility] CARDIAC CATH ORDERA BLES Final Result [facility] [address] [place] [address] documented in this encounter Visit Diagnoses Not on filedocumented in this encounter Additional Health Concerns Assessment Noted Time A fall risk assessment has been complete d for the patient 07/13/2019 9:07 AM EDT documented as of this encounter Care Teams Gas Appliance Servicer Relationship Specialty Start Date End Date Teja Gomez MD [address] [facility] [address] [place] [phone] PCP - General Family Medicine 12/14/15 Melecio Rico MD [address] [facility] [place] [address] [place] [address] Internal Medicine-Cardiovascular Disease 05/12/23 documented as of this encounter
--- OUTSIDE RECORDS SUMMARY | 2025-05-19 12:42 | XMS_ITS | Clinical Summary ---
Author Organization [facility] Address [address] [place] [address] Care Team Providers Care Traffic Checker Name Role Phone Teja Gomez MD Primary Care Provider [phone] Source Comments This information has been disclosed to you from confidential records protectedfrom disclosure by state law. You shall make no further disclosure of thisinformation without the specific, written, and informed release of theindividual to whom it pertains, or as otherwise permitted by law. A generalauthorization for the release of medical or other information is not sufficientfor the purposes of therelease of HIV test results or diagnoses. [id number] Social History Tobacco Use Types Packs/Day Years Used Date Smoking Tobacco: Never Assessed Sex and Gender Information Value Date Recorded Sex Assigned at Not on file Legal Sex Male 9:15 PM EST Gender Identity Not on file Sexual Orientation Not on file Plan of Treatment Health Maintenance Due Date Last Done Comments Alcohol Misuse Screening 1958 Depression Screening 1958 Immunization: Pneumococcal (1 of 1 - PCV) 1992 Immunization: Zoster (1 of 2) 1992 Immunization: DTaP/Tdap/Td (1 - Tdap) 03/17/2010 Immunization: RSV (Adult) (1 - 1-dose 75+ series) 09/17 Immunization: COVID-19 ( season) 2024 Immunization: Influenza (MyChart) (#1) 2025 Insurance MEDICARE A AND B Member Subscriber Plan / Payer ( fective 2007-Present) Name:Mayur Marks Relation to Subscriber:Self Name:Mayur Marks Payer ID:[id number] Group ID:Not on file Type:Medicare Address: [facility] [address] [place] [id number] [employer]IC COMMERCIAL Care Teams Traffic Checker Relationship Specialty Start Date End Date Teja Gomez MD [address] [facility] [address] [place] [address] PCP - General Family Medicine 12/28/24
--- OUTSIDE RECORDS SUMMARY | 2025-05-19 12:42 | XMS_ITS | Clinical Summary ---
Author Organization Healthcare Address [address] [id number] Care Team Providers Care Courtesy Clerk Name Role Phone Teja Gomez MD Primary Care Provider [phone] Social History Tobacco Use Types Packs/Day Years Used Date Smoking Tobacco: Never Assessed Sex and Gender Information Value Date Recorded Sex Assigned at Not on file Legal Sex Male 6:13 PM EDT Gender Identity Not on file Sexual Orientation Not on file Plan of Treatment Not on file Care Teams Courtesy Clerk Relationship Specialty Start Date End Date Teja Gomez MD [address] [place] [address] PCP - General 03/30/21
== END 2025-05-17 23:59 | disposition home or self-care (01) ==
LOC: LAB.DROPOF 05-19 12:40
PROVIDERS: PCP Family Medicine; Visit Provider Family Medicine
DX: B19.10 Unspecified viral hepatitis B without hepatic coma (principal)
CPT/HCPCS: 80053

== ENCOUNTER 2025-09-20 10:02 | Outpatient (CLI) | payer MEDICARE, OTHER, SELFPAY ==
--- OUTSIDE RECORDS SUMMARY | 2025-08-10 08:20 | XMS_ITS | Encounter Summary ---
Author Organization [place] [address] Care Team Providers Care Crew Director Name Role Phone Teja Gomez MD Primary Care Provider [phone] Melecio Rico MD Unavailable [phone] Encounter Details Date Type Department Care Team (Latest Contact Info) Description 08/10/2025 9:20 AM EDT - 08/10/2025 11:59 PM EDT Hospital Encounter GRT MED [facility] [address] [facility]. [place], [place] [id number] Paroxysmal atrial fibrillation (HCC) (Primary Dx); Encounter for therapeutic drug monitoring; [facility] (current) use of anticoagulants Discharge Disposition: Home [...] the lungs every 4 hours as needed. 4 allopurinol (ZYLOPRIM) 300 mg Oral Tablet Take 300 mg by mouth. amiodarone (PACERONE) 200 mg Oral TabletIndications :Paroxysmal atrial fibrillation (HCC) Take 0.5 Tabs by mouth daily. 30 Tab 6 8 aspirin 81 mg tablet Take 81 mg by mouth daily. Bifidobacterium Infantis (ALIGN) 4 mg Oral CapsuleIndication s:Alternating constipation and diarrhea Take 1 Capsule by mouth daily. 30 Capsule 2 4 Coenzyme Q10 100 mg Oral Capsule Take 100 mg by mouth daily. finasteride (PROSCAR) 5 mg Oral Tablet Take 5 mg by mouth daily. hydroCHLOROthiazi de (MICROZIDE) 12.5 mg Oral Capsule Take 12.5 mg by mouth daily. Taking every other day. lamiVUDine (EPIVIR) 100 mg Oral TabletIndications :Chronic hepatitis B with cirrhosis (HCC) Take 1 Tablet by mouth daily. 90 Tablet 3 5 LEVOTHYROXINE SODIUM (LEVOTHYROXINE ORAL) Take 25 mcg by mouth daily. loratadine (CLARITIN) 10 mg Oral Tablet Take 10 mg by mouth as needed (allergies). meclizine (ANTIVERT) 25 mg tablet Take 25 mg by mouth 2 times daily. methylcellulose (CITRUCEL) 500 mg Oral TabletIndications :Alternating constipation and diarrhea Take 1 Tablet by mouth 2 times daily. 60 Tablet 2 4 metoprolol succinate (TOPROL-XL) 50 mg Oral Tablet Sustained Release 24 hrIndications:PVC (premature ventricular contraction) Take 1 Tablet by mouth daily. 100 Tablet 1 5 PANTOPRAZOLE SODIUM (PROTONIX ORAL) Take 40 mg by mouth daily. potassium chloride (KLOR-CON M) 20 mEq Oral Tab Sust.Rel. Particle/Crystal Take 20 mEq by mouth daily. 4 rosuvastatin (CRESTOR) 20 mg Oral Tablet Take 20 mg by mouth nightly. 6 8 spironolactone (ALDACTONE) 25 mg Oral TabletIndications :Essential hypertension Take 1 Tab by mouth daily. 30 Tab 11 1 valACYclovir (VALTREX) 500 mg Oral Tablet Take 500 mg by mouth every 12 hours. Vitamin A-Vitamin C-Vit E-Min Oral Tablet Take 1 Tablet by mouth daily. warfarin (COUMADIN) 5 mg Oral TabletIndications :Paroxysmal atrial fibrillation (HCC) Take 2.5mg (1/2 tablet) to 5mg (1 tablet) by mouth daily as instructed per anticoagulation clinic. 54 Tablet 1 09/17/202 5 documented as of this encounter Discharge Disposition Disposition Code Departure Means Destination Home or Self Care documented in this encounter Progress Notes * Tara Stone - 08/10/2025 9:30 AM EDT Follow-Up Visit Mayur Marks was seen today for assessment, management and follow-up of his anticoagulation status. The patient was referred by Dr. Rico and has a medical history significant for atrial fibrillation. [id number] Stroke Risk Points: 3 Values used to calculate this score: Points Metrics 0 Has Congestive Heart Failure: No 1 Has Hypertension: Yes 2 Age: 84 0 Has Diabetes: No 0 Had Stroke: No Had TIA: No Had Thromboembolism: No 0 Has Vascular Disease: No 0 Clinically Relevant Sex: Male The patient was interviewed and reports the following: Missed doses: none SWITCH ENGINEER meds reconciled: Yes, reviewed Medication changes: none Dietary changes: none Alcohol use: none Nutritional supplements: none Reports of unexpected bleeding: none Bruising, swelling, redness, or unexplained lumps: none Numbness or weakness: none Breathing difficulty: none Problems with confusion, balance, or light-headedness: none Other problems or concerns: none Recent Hospitalizations: none Upcoming procedures/bridging needs: none INR = 2.4 (goal 2.0-3.0) within goal and stable from 2.2 at last visit Weekly dose= 20 mg [...] noted above and verbalizes understanding. Cosigned by Michelle Fernandez RPH at 08/10/2025 9:33 AM EDT Associated attestation - Michelle Fernandez RPH - 08/10/2025 9:33 AM EDT Plan reviewed and discussed with no changes per Michelle Fernandez, Pharm.D. documented in this encounter Plan of Treatment Upcoming Encounters Date Type Department Care Team (Late st Contact Info) Description 10/03/2025 10:00 AM EST Office Visit [facility] H[facility] [place] [address] [place] [address] [id number] Melecio Rico MD [address] [place] [address] [id number] 10/05/2025 9:30 AM EST Appointment GRT MED [facility] 238 [place] [address] 01/23/2026 10:30 AM EDT Office Visit SEP Sleep Medicine [address] [address] Lilly Kc, GRAPHIC DESIGN PROFESSOR [address] [place] [address] documented as of this encounter Procedures Procedure Name Priority Date/Time Associated Diagnosis Comments POCT PT/INR Routine 08/10/2025 9:22 AM EDT Paroxysmal atrial fibrillation (HCC) Encounter for therapeutic drug monitoring technician terminal and repeater (current) use of anticoagulants documented in this encounter Results * POCT PT/INR (08/10/2025 9:22 AM EDT) Protime [facility] INR 2.40 (ratio) [facility] Lot Number [facility] Expiration Date [facility] SeriAl # [facility] 08/10/2025 9:22 AM EDT us Melecio Rico MD POINT OF CARE TEST TRISTON FLANNERY Final Result [facility] [address] [place] [address], [facility] documented in this encounter Visit Diagnoses Diagnosis Paroxysmal atrial fibrillation (HCC)- Primary Atrial fibrillation Encounter for therapeutic drug monitoring [facility] (current) use of anticoagulants Long-term (current) use of anticoagulants documented in this encounter Additional Health Concerns Assessment Noted Time A fall risk assessment has been complete d for the patient 07/13/2019 9:07 AM EDT documented as of this encounter Care Teams Crew Director Relationship Specialty Start Date End Date Teja Gomez MD [facility] [address] [place] [address] PCP - General Family Medicine 12/14/15 Melecio Rico MD [address] [place] [address] [place] [address] Internal Medicine-Cardiovascular Disease 05/12/23 documented as of this encounter
[2025-09-20 15:18] LABS: Hematocrit 41.6 % (42.0-52.0); Hemoglobin 14.3 g/dL (14.1-18.0); Mean Corpuscular HGB Conc 34.4 g/dL (31.8-35.4); Mean Corpuscular Hemoglobin 33.5 pg (27.0-31.2); Mean Corpuscular Volume 97.4 fl (80-94); Platelet Count 133 K/mm3 (142-424); Red Blood Count 4.27 M/mm3 (4.60-6.20); White Blood Count 4.0 K/mm3 (4.8-10.8)
[2025-09-20 15:21] LABS: Alanine Aminotransferase 44 U/L (12-78); Albumin Level 4.1 g/dl (3.5-5.0); Albumin/Globulin Ratio 1.5 (1.1-1.8); Alkaline Phosphatase 82 U/L (38-126); Anion Gap 8.3 mEq/L (5-15); Aspartate Amino Transferase 47 U/L (17-59); Bilirubin,Total 0.7 mg/dl (0.2-1.3); Blood Urea Nitrogen 20 mg/dl (9-20); Calcium 8.9 mg/dl (8.4-10.2); Carbon Dioxide 28 mmol/L (22.0-30.0); Chloride 105 mmol/L (98-107); Creatinine,Serum 1.20 mg/dl (0.66-1.25); Estimated Glomerular Filt Rate 58 ml/min (>60); GFR (African American) 70 ML/MIN (>60); Globulin 2.7 g/dL (1.3-3.2); Glucose 145 mg/dl (74-100); Potassium 4.3 mmoL/L (3.5-5.1); Sodium 137 mmol/L (136-145); Total Protein,Serum 6.8 g/dl (6.3-8.2)
[2025-09-20 16:41] LABS: Total Cells Counted 100
[2025-09-20 16:43] LABS: Basophilic Stippling 1+
--- OUTSIDE RECORDS SUMMARY | 2025-09-22 10:12 | XMS_ITS | Encounter Summary ---
Author Organization [place] [address] Care Team Providers Care Assistant Professor Of Archaeology Name Role Phone Teja Gomez MD Primary Care Provider [phone] Melecio Rico MD Unavailable [phone] Encounter Details Date Type Department Care Team (Late Contact Info) Description 01/08/2021 Orders Only SEP H&V [facility] [address] [place] [address] Melecio Rico MD [address] [place] [address] Social History Tobacco Use Types Packs/Day Years [...] 10:00 AM EST Office Visit SEP H&V [address] [address] Melecio Rico MD [address] [place] [address] [address] [place] [address] 10/05/2025 9:30 AM EST Appointment GRT MED [facility] 238 [facility] [place] [address] 01/23/2026 10:30 AM EDT [facility] Medicine [facility] [address] [place] [address] Lilly Kc, LINKER UP [address] [place] [address] documented as of this encounter Procedures Procedure Name Priority Date/Time Associated Diagnosis Comments PACEART REPORT Routine 01/08/2021 9:15 PM EST documented in this encounter Results * PACEART REPORT (01/08/2021 9:15 PM EST) 01/08/2021 9:15 PM EST Narrative [facility] - 01/09/2021 8:59 AM EST Per Carelink- No Events since last session. See attachments for full report and strips...lgy/rma us Melecio Rico MD [facility] CARDIAC CATH ORDERA BLES Final Result [facility] 1 [place] [address] documented in this encounter Visit Diagnoses Not on filedocumented in this encounter Additional Health Concerns Assessment Noted Time A fall risk assessment has been complete d for the patient 07/13/2019 9:07 AM EDT documented as of this encounter Care Teams Assistant Professor Of Archaeology Relationship Specialty Start Date End Date Teja Gomez MD Critical access hospital0 [facility] [address] [place] [phone] PCP - General Family Medicine 12/14/15 Melecio Rico MD [address] [place] [address] [address] [place] [address] Internal Medicine-Cardiovascular Disease 05/12/23 documented as of this encounter
--- OUTSIDE RECORDS SUMMARY | 2025-09-22 10:12 | XMS_ITS | Encounter Summary ---
Author Organization [place] [address] Care Team Providers Care Puppet Developer Name Role Phone Teja Gomez MD Primary Care Provider [phone] Melecio Rico MD Unavailable [phone] Encounter Details Date Type Department Care Team (Late Contact Info) Description 11/05/2021 Orders Only SEP H[facility]V [facility] [place] [address] [place] [address] Melecio Rico MD [address] [place] [address] Social History Tobacco Use Types Packs/Day Years [...] 10:00 AM EST Office Visit SEP H&V [place] [address] [place] [address] Melecio Rico MD [address] [place] [address] [place] [address] 10/05/2025 9:30 AM EST Appointment GRT MED [facility] [address] [place] [address] 01/23/2026 10:30 AM EDT Office Visit [facility] Sleep Medicine [facility] [address] [place] [address] Lilly Kc, SPORT INTERN [address] [place] [address] documented as of this encounter Procedures Procedure Name Priority Date/Time Associated Diagnosis Comments PACEART REPORT Routine 11/05/2021 1:50 AM EST documented in this encounter Results * PACEART REPORT (11/05/2021 1:50 AM EST) 11/05/2021 1:50 AM EST Narrative [facility] - 11/05/2021 11:20 AM EST Per Carelink- No Events since last session. See attachments for detailed report and strips...lgy/rma us Melecio Rico MD [facility] CARDIAC CATH ORDERA BLES Final Result [facility] 1 [place] [address] documented in this encounter Visit Diagnoses Not on filedocumented in this encounter Additional Health Concerns Assessment Noted Time A fall risk assessment has been complete d for the patient 07/13/2019 9:07 AM EDT documented as of this encounter Care Teams Puppet Developer Relationship Specialty Start Date End Date Teja Gomez MD [facility] [address] [place] [address] PCP - General Family Medicine 12/14/15 Melecio Rico MD [address] [place] [address] [address] [place] [address] Internal Medicine-Cardiovascular Disease 05/12/23 documented as of this encounter
--- OUTSIDE RECORDS SUMMARY | 2025-09-22 10:12 | XMS_ITS | Encounter Summary ---
Author Organization [place] [address] Care Team Providers Care Certified Procedural Coder Name Role Phone Teja Gomez MD Primary Care Provider [phone] Melecio Rico MD Unavailable [phone] Encounter Details Date Type Department Care Team (Late st Contact Info) Description 05/31/2025 Results Follow-Up SEP H&V [facility] [address] [place] [address] Melecio Rico MD [address] [place] [address] VECTOR REMOTE DEVICE Social History Tobacco Use Types Packs/Day Years [...] 10:00 AM EST Office Visit SEP H&V [address] [address] Melecio Rico MD [address] [place] [address] 10/05/2025 9:30 AM EST Appointment [facility] MED [facility] 238 [facility] [place] [address] 01/23/2026 10:30 AM EDT Office Visit SEP Sleep Medicine [facility] 300 [place] [phone] Lilly Kc, LEVEL VIAL INSPECTOR AND TESTER [address] [place], [place] [address] documented as of this encounter Visit Diagnoses Not on filedocumented in this encounter Additional Health Concerns Assessment Noted Time A fall risk assessment has been complete d for the patient 07/13/2019 9:07 AM EDT documented as of this encounter Care Teams Certified Procedural Coder Relationship Specialty Start Date End Date Teja Gomez MD [facility] [address] [place] [phone] PCP - General Family Medicine 12/14/15 Melecio Rico MD [address] [place] [address] [place] [address] Internal Medicine-Cardiovascular Disease 05/12/23 documented as of this encounter
--- OUTSIDE RECORDS SUMMARY | 2025-09-22 10:12 | XMS_ITS | Encounter Summary ---
Author Organization [place] [address] Care Team Providers Care Reading Instructor Name Role Phone Teja Gomez MD Primary Care Provider [phone] Melecio Rico MD Unavailable [phone] Encounter Details Date Type Department Care Team (Late st Contact Info) Description 08/23/2025 Results Follow-Up [facility] [place] [address] Melecio Rico MD [address] [place] [address] VECTOR REMOTE DEVICE Social History Tobacco Use [...] 10:00 AM EST Office Visit SEP H&V [address] [address] Melecio Rico MD [address] [place] [address] 10/05/2025 9:30 AM EST Appointment [facility] MED [facility] 238 [facility] [place] [address] 01/23/2026 10:30 AM EDT Office Visit [facility] Sleep Medicine [facility] 300 [place] [address] Lilly Kc, COUNTER MAKER [address] [place], [place] [address] documented as of this encounter Visit Diagnoses Not on filedocumented in this encounter Additional Health Concerns Assessment Noted Time A fall risk assessment has been complete d for the patient 07/13/2019 9:07 AM EDT documented as of this encounter Care Teams Reading Instructor Relationship Specialty Start Date End Date Teja Gomez MD [facility] [address] [place] [address] PCP - General Family Medicine 12/14/15 Melecio Rico MD [address] [place] [address] [place] [address] Internal Medicine-Cardiovascular Disease 05/12/23 documented as of this encounter
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
--- OUTSIDE RECORDS SUMMARY | 2025-09-22 10:12 | XMS_ITS | Encounter Summary ---
Author Organization [place] [address] Care Team Providers Care Cat Cracker Operator Name Role Phone Teja Gomez MD Primary Care Provider [phone] Melecio Rico MD Unavailable [phone] Encounter Details Date Type Department Care Team (Late st Contact Info) Description 08/20/2025 Orders Only SEP H&V [place] [address] [facility] [address] [place] [address] Melecio Rico MD [address] [place] [address] Vector Remote Device Social History Tobacco Use Types Packs/Day Years [...] 10:00 AM EST Office Visit SEP H&V [address] [address] Melecio Rico MD [address] [place] [address] 10/05/2025 9:30 AM EST Appointment GRT MED [facility] 238 [facility] [place] [address] 01/23/2026 10:30 AM EDT Office Visit SEP Sleep Medicine [facility] 300 [place] [phone] Lilly Kc Leena, BULKING MACHINE OPERATOR [address] [place], [place] [address] documented as of this encounter Procedures Procedure Name Priority Date/Time Associated Diagnosis Comments [place] REM INTERROG PM/LDLS PM <90 D PHYS/QHP Routine 08/20/2025 Vector Remote Device documented in this encounter Results * VECTOR REMOTE DEVICE (08/20/2025) 08/20/2025 Narrative [facility] - 08/20/2025 No significant episodes. Atrial Episodes: 1. Longest atrial episode: 44m:8s. Patient on AC. Mode: AAIR<=>DDDR. AP: 94%. DRUM SANDER SETTER: 0.1%. Normal device function. us Melecio Rico MD [facility] CARDIAC CATH ORDERA BLES Final Result [facility] 1 [place] [address] documented in this encounter Visit Diagnoses Diagnosis Vector Remote Device documented in this encounter Additional Health Concerns Assessment Noted Time A fall risk assessment has been complete d for the patient 07/13/2019 9:07 AM EDT documented as of this encounter Care Teams Cat Cracker Operator Relationship Specialty Start Date End Date Teja Gomez MD [address] [facility] [address] [facility] [address] PCP - General Family Medicine 12/14/15 Melecio Rico MD [address] [facility] [address] Internal Medicine-Cardiovascular Disease 05/12/23 documented as of this encounter
--- OUTSIDE RECORDS SUMMARY | 2025-09-22 10:12 | XMS_ITS | Encounter Summary ---
Author Organization [facility] Address [address] [place] [address] Care Team Providers Care Nurse Midwife Name Role Phone Teja Gomez MD Primary Care Provider [phone] Source Comments This information has been disclosed to you from confidential records protectfrom disclosure by state law. You shall make no further disclosure of thisinformation without the specific, written, and informed release of theindividual to whom it pertains, or as otherwise permitted by law. A generalauthorization for the release of medical or other information is not sufficientfor the purposes of the release of HIV test results or diagnoses. [id number] Health Encounter Details Date Type Department Care Team (Late st Contact Info) Description 07/29/2025 Orders Only [facility] [address] [place] [address] [place] [address] [place] [address] Neoplasm of uncertain behavior of skin (Primary Dx) Social History Tobacco Use Types Packs/Day Years Used Date Smoking Tobacco: Never Assessed Sex and Gender Information Value Date Recorded Sex Assigned at Not on file Legal Sex Male 9:15 PM EST Gender Identity Not on file Sexual Orientation Not on file documented as of this encounter Plan of Treatment Not on file documented as of this encounter Procedures Procedure Name Priority Date/Time Associated Diagnosis Comments SKIN / NAIL BIOPSY Routine 07/28/2025 12 :00 AM EDT Neoplasm of uncertain behavior of skin documented in this encounter Results * Skin / nail biopsy (07/28/2025 12:00 AM EDT) 07/28/2025 07/29/2025 Narrative [facility] - 07/28/2025 12:00 AM EDT CASE: [id number] PATIENT: MENA MARKS Clinical Impression: A) SCC. B) ISK. C) SCC. Site(s): A. L preauricular B. L upper back C. R med FA mid CPT Code(s): 02066 X 3 Diagnosis: A. L preauricular Inflamed seborrheic keratosis. B. L upper back Inflamed seborrheic keratosis. C. 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 Microscopic Exam: A. L preauricular There is hyperkeratosis, papillomatosis, acanthosis and a lymphocytic infiltrate in the superficial dermis. There is no atypia. B. L upper back There is hyperkeratosis, papillomatosis, acanthosis and a lymphocytic infiltrate in the superficial dermis. There is no atypia. C. R med FA mid There is diffuse parakeratosis, verrucous epidermal hyperplasia, and marked keratinocyte atypia with pleomorphism, hyperchromasia and atypical mitoses throughout the full thickness of the epidermis. Gross Description: Specimens of skin were received measuring: A) 8 x 8 x 1.5 mm, B) 7 x 7 x 2 mm C) 7 x 7 x 2 mm. Final Diagnosis performed by MIREYA FERRARA MD Electronically signed 08/01/2025 03:30:15 PM The Pathologist signing this report is located at [facility] D[facility]opathology [facility], [address] [place] [address], [address], [phone], CLIA ID: [id number] Amadeo Traylor MD DERM PROCEDURE ORDERABLES Final Result [facility] documented in this encounter Visit Diagnoses Diagnosis Neoplasm of uncertain behavior of skin- Primary documented in this encounter Care Teams Nurse Midwife Relationship Specialty Start Date End Date Teja Gomez MD [address] [place] [facility] [address] [place] [address] PCP - General Family Medicine 12/28/24 documented as of this encounter
--- OUTSIDE RECORDS SUMMARY | 2025-09-22 10:12 | XMS_ITS | Encounter Summary ---
Author Organization [place] [address] Care Team Providers Care Retail Marketing Specialist Name Role Phone Teja Gomez MD Primary Care Provider [phone] Melecio Rico MD Unavailable [phone] Encounter Details Date Type Department Care Team (Late Contact Info) Description 04/15/2021 Orders Only SEP H&V [facility] [place] [address] [place] [address] Melecio Rico MD [address] [place] [address] Social History Tobacco Use Types Packs/Day Years [...] 10:00 AM EST Office Visit [facility] H&[facility] [place] [address] [place] [address] Melecio Rico MD [address] [place] [address] [place] [id number] 10/05/2025 9:30 AM EST Appointment GRT MED [facility] 238 [facility] [place] [address] 01/23/2026 10:30 AM EDT Office Visit [facility] Sleep Medicine [facility] 300 [place] [address] Lilly Kc, FINISHED GARMENT INSPECTOR [address] [place] [address] documented as of this encounter Procedures Procedure Name Priority Date/Time Associated Diagnosis Comments PACEART REPORT Routine 04/15/2021 9:19 PM EDT documented in this encounter Results * PACEART REPORT (04/15/2021 9:19 PM EDT) 04/15/2021 9:19 PM EDT Narrative [facility] - 04/17/2021 11:32 AM EDT Per Carelink- No events since last session See attachment for full report and details. lgy/rma us Melecio Rico MD [facility] CARDIAC CATH ORDERA BLES Final Result [facility] 1 [place] [address] documented in this encounter Visit Diagnoses Not on filedocumented in this encounter Additional Health Concerns Assessment Noted Time A fall risk assessment has been complete d for the patient 07/13/2019 9:07 AM EDT documented as of this encounter Care Teams Retail Marketing Specialist Relationship Specialty Start Date End Date Teja Gomez MD 1210 [facility] [address] [place] [address] PCP - General Family Medicine 12/14/15 Melecio Rico MD [address] [place] [address] [address] [place] [id number] Internal Medicine-Cardiovascular Disease 05/12/23 documented as of this encounter
--- OUTSIDE RECORDS SUMMARY | 2025-09-22 10:13 | XMS_ITS | Encounter Summary ---
Author Organization Healthcare Address [address] [place] [address] Care Team Providers Care Pile Driver Operator Name Role Phone Teja Gomez MD Primary Care Provider [phone] Encounter Details Date Type Department Care Team (Late st Contact Info) Description 10/08/2024 Community Orders Community Practice [address] [place] [address] Jacquie Marti MD [address] [place] [address] Social History Tobacco Use Types Packs/Day [...] on filedocumented in this encounter Care Teams Pile Driver Operator Relationship Specialty Start Date End Date Teja Gomez MD [address] [place] [address] PCP - General 03/30/21 documented as of this encounter
--- OUTSIDE RECORDS SUMMARY | 2025-09-22 10:13 | XMS_ITS | Encounter Summary ---
Author Organization [place] [address] Care Team Providers Care Special Education Para Professional Name Role Phone Teja Gomez MD Primary Care Provider [phone] Melecio Rico MD Unavailable [phone] Encounter Details Date Type Department Care Team (Late st Contact Info) Description 09/16/2022 Orders Only [facility] [place] [address] [facility] [address] [place] [address] Melecio Rico MD [address] [place] [address] Social History Tobacco Use Types Packs/Day Years [...] 10:00 AM EST Office Visit [facility] [place] [address] [place] [address] Melecio Rico MD [address] [place] [address] [address] [place] [id number] 10/05/2025 9:30 AM EST Appointment [facility] [address] [place] [address] 01/23/2026 10:30 AM EDT Office Visit [facility] [place] [facility] [address] [place] [address] Lilly Kc, BOILER CONTROL TECHNICIAN [address] [place] [address] documented as of this encounter Procedures Procedure Name Priority Date/Time Associated Diagnosis Comments PACEART REPORT Routine 09/16/2022 1:23 PM EDT documented in this encounter Results * PACEART REPORT (09/16/2022 1:23 PM EDT) 09/16/2022 1:23 PM EDT Narrative [facility] - 09/20/2022 10:45 AM EDT in office device check 1 fast A & V on 04-27-22 x 9 sec (1:) see attachments for detailed report us Melecio Rico MD [facility] CARDIAC CATH ORDERA BLES Final Result [facility] [address] [place] [address] documented in this encounter Visit Diagnoses Not on filedocumented in this encounter Additional Health Concerns Assessment Noted Time A fall risk assessment has been complete d for the patient 07/13/2019 9:07 AM EDT documented as of this encounter Care Teams Special Education Para Professional Relationship Specialty Start Date End Date Teja Gomez MD [address] [facility] [address] [place] [address] PCP - General Family Medicine 12/14/15 Melecio Rico MD [address] [place] [address] [address] [place] [address] Internal Medicine-Cardiovascular Disease 05/12/23 documented as of this encounter
--- OUTSIDE RECORDS SUMMARY | 2025-09-22 10:13 | XMS_ITS | Clinical Summary ---
Author Organization [facility] Address [address] [place] [address] Care Team Providers Care Unit Technician Name Role Phone Teja Gomez MD Primary Care Provider [phone] Source Comments This information has been disclosed [...] release of HIV test results or diagnoses. [id number] Health Encounters Date Type Department Care Team Description 07/29/2025 Orders Only [facility] [address] [address] Amadeo Traylor MD Neoplasm of uncertain behavior of skin (Primary Dx) from Last 3 Months Social History Tobacco Use Types Packs/Day Years [...] 75+ series) 09/17 Immunization: COVID-19 ( season) 2025 Immunization: Influenza (MyChart) (#1) 2025 Procedures Procedure Name Priority Date/Time Associated Diagnosis Comments SKIN / NAIL BIOPSY Routine 07/28/2025 12 :00 AM EDT Neoplasm of uncertain behavior of skin from Last 3 Months Results * Skin / nail biopsy (07/28/2025 12:00 AM EDT) 07/28/2025 07/29/2025 Narrative [facility] - 07/28/2025 12:00 AM EDT CASE: [id number] PATIENT: MENA MARKS Clinical Impression: A) SCC. B) ISK. C) SCC. Site(s): A. L preauricular B. L upper back C. R med FA mid CPT Code(s): 36147 X 3 Diagnosis: A. L preauricular Inflamed [...] Pathologist signing this report is located at [facility] Dermatopathology Laboratory, [address] [place] [address], [address], , CLIA ID: [id number] Amadeo Traylor MD DERM PROCEDURE ORDERABLES Final Result [facility] from Last 3 Months Insurance MEDICARE A AND B GENERIC COMMERCIAL Care Teams Unit Technician Relationship Specialty Start Date End Date Teja Gomez MD [address] [facility] [address] [place] [id number] PCP - General Family Medicine 12/28/24
--- OUTSIDE RECORDS SUMMARY | 2025-09-22 10:13 | XMS_ITS | Clinical Summary ---
Author Organization Healthcare Address [address] [place] [id number] Care Team Providers Care Computer Repair Instructor Name Role Phone Teja Gomez MD Primary Care Provider [phone] Social History Tobacco Use Types Packs/Day Years Used Date Smoking Tobacco: Never Assessed Sex and Gender Information Value Date Recorded Sex Assigned at Not on file Legal Sex Male 6:13 PM EDT Gender Identity Not on file Sexual Orientation Not on file Plan of Treatment Not on file Care Teams Computer Repair Instructor Relationship Specialty Start Date End Date Teja Gomez MD [address] [place] [address] PCP - General 03/30/21
--- OUTSIDE RECORDS SUMMARY | 2025-09-22 10:13 | XMS_ITS | Encounter Summary ---
Author Organization [place] [address] Care Team Providers Care Visual Lead Name Role Phone Teja Gomez MD Primary Care Provider [phone] Melecio Rico MD Unavailable [phone] Encounter Details Date Type Department Care Team (Late Contact Info) Description 10/07/2020 Orders Only [facility] [place] [address] [place] [address] Melecio Rico MD [address] [place] [address] Social History Tobacco Use Types Packs/Day Years [...] 10:00 AM EST [place] [address] Melecio Rico MD [address] [place] [address] [address] [place] [address] 10/05/2025 9:30 AM EST Appointment [facility] MED [facility] [address] [facility] [address] 01/23/2026 10:30 AM EDT Office Visit [facility] [place] Medicine [facility] [address] [place] [address] Lilly Kc, MANAGER SKILLED [address] [place] [address] documented as of this encounter Procedures Procedure Name Priority Date/Time Associated Diagnosis Comments PACEART REPORT Routine 10/07/2020 12:28 AM EST documented in this encounter Results * PACEART REPORT (10/07/2020 12:28 AM EST) 10/07/2020 12:2 8 AM EST Narrative [facility] - 10/09/2020 1:25 PM EST Per carelink- 1 Monitored [place]. See attachments for full report and strips. [email or web address] Melecio Rico MD [facility] CARDIAC CATH ORDERA BLES Final Result [facility] 1 [place] [address] documented in this encounter Visit Diagnoses Not on filedocumented in this encounter Additional Health Concerns Assessment Noted Time A fall risk assessment has been complete d for the patient 07/13/2019 9:07 AM EDT documented as of this encounter Care Teams Visual Lead Relationship Specialty Start Date End Date Teja Gomez MD [address] [facility] [address] [place] [address] PCP - General Family Medicine 12/14/15 Melecio Rico MD [address] [place] [address] [address] [place] [address] Internal Medicine-Cardiovascular Disease 05/12/23 documented as of this encounter
--- OUTSIDE RECORDS SUMMARY | 2025-09-22 10:13 | XMS_ITS | Clinical Summary ---
Author Organization [facility] Address [address] [place] [address] Phone Care Team Providers Care Manager Business Continuity Name Role Phone Teja Gomez MD Primary Care Provider [phone] Melecio Rico MD Unavailable [phone] Allergies No known active allergies Medications LEVOTHYROXINE [...] mg by mouth every 12 hours. Active metoprolol succinate (TOPROL-XL) 50 mg Oral Tablet Sustained Release 24 hrIndications:PV C (premature ventricular contraction) Take 1 Tablet by mouth daily. 100 Tablet 1 05/03/20 25 Active lamiVUDine (EPIVIR) 100 mg Oral TabletIndication s:Chronic hepatitis B with cirrhosis (HCC) Take 1 Tablet by mouth daily. 90 Tablet 3 07/01/20 25 Active warfarin (COUMADIN) 5 mg Oral TabletIndication s:Paroxysmal atrial fibrillation (HCC) Take 2.5mg (1/2 tablet) to 5mg (1 tablet) by mouth daily as instructed per anticoagulation clinic. 54 Tablet 1 08/03/20 25 Active Active Problems Problem Noted Date Diagnosed Date PVC (premature ventricular contraction) 01/18/20 23 Chronic hepatitis B with cirrhosis 08/25/2019 Cholecystitis 05/25/2019 Overview (05/25/2019): Added automatically from request for surgery [id number] Lymphadenopathy 05/25/2019 Overview (05/25/2019): Added automatically from request for surgery [id number] Gallbladder mass 05/19/2019 Meniere disease 06/25/2012 Pacemaker [...] Encounters Date Type Department Care Team Description 08/23/2025 Results Follow-Up [facility] [address] [address] Melecio Rico MD VECTOR REMOTE DEVICE 08/20/2025 Orders Only [facility] [place] [address] [facility] [address] [place] [address] Melecio Rico MD Vector Remote Device 08/10/2025 9:20 AM EDT - 08/10/2025 11:59 PM EDT Hospital Encounter [facility] [address] [place] [address] Paroxysmal atrial fibrillation (HCC) (Primary Dx); Encounter for therapeutic drug monitoring; half-way (current) use of anticoagulants Discharge Disposition: Home or Self Care 08/02/2025 Refill [facility] [address] [address] Melecio Rico MD Medication Refill 07/12/2025 Results Follow-Up [facility] [place] [address], 3RD [place] [address] Geovanni Chau MD ALPHA FETOPROTEIN TUMOR MARKER -REF LAB, COMPREHENSIVE METABOLIC PANEL, CBC, US RIGHT UPPER QUADRANT 07/08/2025 8:33 AM EDT - 07/08/2025 11:59 PM EDT Hospital Encounter [facility] [address] [place] [address] Geovanni Chau MD Chronic hepatitis B with cirrhosis (HCC) Discharge Disposition: Home or Self Care 07/01/2025 9:50 AM EDT - 07/01/2025 11:59 PM EDT Hospital Encounter [facility] [address] [place] [address] Chronic hepatitis B with cirrhosis (HCC); Gastroesophageal reflux disease without esophagitis Discharge Disposition: Home or Self Care 07/01/2025 9:30 AM EDT Office Visit [facility] [address] [place] [address] Geovanni Chau MD Gastroesophageal reflux disease without esophagitis (Primary Dx); Chronic hepatitis B with cirrhosis (HCC); Obesity, Class III, BMI 40-49.9 (morbid obesity); EMERSON on CPAP 06/30/2025 Refill [facility] [place] [address] [place] [address] Geovanni Chau MD Medication Refill from Last 3 Months Immunizations Immunization Administration Dates Next Due Td, Unspecified Formulation 03/16/2010 Surgical History Surgery Date Site/Laterality Comments HERNIA REPAIR umbilical ROTATOR CUFF REPAIR right APPENDECTOMY CARDIAC CATHETERIZATION 11/17/2002 - 11/16/2003 normal coronary arteries and pEF PACEMAKER INSERTION 03/17/2012 - 04/16/2012 TOTAL HIP ARTHROPLASTY vasile hips SKIN CANCER EXCISION 08/20/2016 EYE SURGERY L cataract CHOLECYSTECTOMY, LAPAROSCOPIC 06/01/2019 N/A Laparoscopic cholecystectomy ; Surgeon: Timothy Macias MD; Location: [facility] MAIN OR; Service: General COLONOSCOPY UPPER GASTROINTESTINAL [...] Sign Reading Time Taken Comments Blood Pressure 128/78 07/01/2025 9:16 AM EDT Pulse 81 02/04/2025 10:44 AM EDT Temperature 36.7 C (98.1 F) 11/24/2023 9:10 AM EST Respiratory Rate 17 11/24/2023 9:10 AM EST Oxygen Saturation 98% 02/04/2025 10:44 AM EDT Inhaled Oxygen Concentration - - Weight 137.4 kg (303 lb) 07/01/2025 9:16 AM EDT Height 167.6 cm (5' 6 ) 02/04/2025 10:44 AM EDT Body Mass Index 48.91 02/04/2025 10:44 AM EDT Plan of Treatment Upcoming Encounters Date Type Department Care Team (Late st Contact Info) Description 10/03/2025 10:00 AM EST Office Visit [facility] H&V [place] [id number] Melecio Rico MD [address] [place] [address] 10/05/2025 9:30 AM EST Appointment [facility] [address] [place] [address] 01/23/2026 10:30 AM EDT Office Visit [facility] Sleep Medicine [facility] [address] [place] [address] Lilly Kc, CONFERENCE SPECIALIST [address] [place] [address] Health Maintenance Due Date Last [...] this topic Medical Devices Implanted Type Area Photographic Supervisor Device Identifier Shelf Expiration Date Model / Serial / Lot Pacemaker Nancy Xt Dr Mri Surscn 2chmbr 46.6x50.8x7.4mm - [id number] Implanted:Qty: 1 on 01/08/2023 by Melecio Rico MD at [facility] Pacemaker [employer]:PIPE Sherman SYS [id number] 05/30/2024 [id number] / [id number] / Bilateral Total Hip Replacements Lead Capsurefix Mri 5086 Is-I Bi Artrial 58cm - [id number] Implanted:Qty: 1 on 04/08/2012 by Melecio Rico MD at [facility] FORM WORKER [employer]:CARDI AC SURG SRVC [id number] / [id number] / Lead Capsurefix Mri 5086 Is-I Bi Artrial 52cm - [id number] Implanted:Qty: 1 on 04/08/2012 by Melecio Rico MD at [facility] FORM WORKER [employer]:CARDI AC SURG SRVC [id number] / [id number] V / Envelope Tyrx Absb Antbtc Impl 2.9x3.3in Sgl-Healy Foil [facility] - [id number] Implanted:Qty: 1 on 01/08/2023 by Melecio Rico MD at [facility] [employer]:PIPE Sherman SYMarjorie [id number] 10/17/2023 [id number] / / [id number] Explanted Type Area Photographic Supervisor Device Identifier Shelf Expiration Date Model / Serial / Lot Pacemaker Revo Mri Dual Chamber - [id number] Implanted:Qty: 1 on 04/08/2012 by Melecio Rico MD at [facility] FORM WORKER Explanted:Qty: 1 on 01/08/2023 at [facility] [employer]:CARDIAC SURG SRVC [id number] / [id number] / Procedures Procedure Name Priority Date/Time Associated Diagnosis Comments DE REM INTERROG PM/LDLS PM <90 D PHYS/QHP Routine 08/20/2025 Vector Remote Device POCT PT/INR Routine 08/10/2025 9:22 AM EDT Paroxysmal atrial fibrillation (HCC) Encounter for therapeutic drug monitoring half-way (current) use of anticoagulants US RIGHT UPPER QUADRANT Routine 07/08/2025 9:01 AM EDT Chronic hepatitis B with cirrhosis (HCC) CBC Routine 07/01/2025 10:03 AM EDT Chronic hepatitis B with cirrhosis (HCC) Gastroesophageal reflux disease without esophagitis COMPREHENSIVE METABOLIC PANEL Routine 07/01/2025 10:03 AM EDT Chronic hepatitis B with cirrhosis (HCC) ALPHA FETOPROTEIN TUMOR MARKER -REF LAB Routine 07/01/2025 10:03 AM EDT Chronic hepatitis B with cirrhosis (HCC) from Last 3 Months Results * VECTOR REMOTE DEVICE (08/20/2025) 08/20/2025 Narrative [facility] - 08/20/2025 No significant episodes. Atrial Episodes: 1. Longest atrial episode: 44m:8s. Patient on AC. Mode: AAIR<=>DDDR. AP: 94%. MINE PATROL: 0.1%. Normal device function. Melecio Rico MD [facility] CARDIAC CATH ORDERA BLES Final Result [facility] 1 [place] [address] * POCT PT/INR (08/10/2025 9:22 AM EDT) Protime [facility] INR 2.40 (ratio) [facility] Lot Number [facility] Expiration Date [facility] SeriAl # [facility] 08/10/2025 9:22 AM EDT us Melecio Rico MD POINT OF CARE TEST ORDLindsey FLANNERY Final Result Performing Organization Address [facility] Co de Phone Number [facility] [address] * US RIGHT UPPER QUADRANT (07/08/2025 9:01 AM EDT) Anatomical Region Laterality Modality Abdomen Ultrasound 07/08/2025 9:01 AM EDT Impressions 07/08/2025 9:16 AM EDT No change chronic hepatocellular disease appearance of the liver. - Note: Radiology results need to be interpreted within a comprehensive clinical context. If you have questions about the radiology report, please contact the office of the ordering clinician. Narrative 07/08/2025 9:16 AM EDT US RIGHT UPPER QUADRANT, 07/08/2025 9:01 AM CLINICAL HISTORY: B18.1-Chronic viral hepatitis B without delta-agent (HCC)-ICD-10-CM K74.60-Unspecified cirrhosis of liver (HCC)-ICD-10-CM. COMPARISON: 10/22/2021 PROCEDURE COMMENTS: Ultrasound examination of the right upper quadrant performed by the technologist. Sent to PACS along with tech notes for radiologist review. FINDINGS: Gallbladder: Resected. Tam's sign: Negative. Liver: Echogenic, unchanged. Common bile duct: Measures 5 mm. (Normal is 6mm or less. If there has been cholecystectomy, normal is 10mm or less.) Pancreas: Visualized portions are normal. Other: Right kidney non-hydronephrotic. Procedure Note Cosme Barnard MD - 07/08/2025 US RIGHT UPPER QUADRANT, 07/08/2025 9:01 AM CLINICAL HISTORY: B18.1-Chronic viral hepatitis B without delta-agent (HCC)-ICD-10-CM K74.60-Unspecified cirrhosis of liver (HCC)-ICD-10-CM. COMPARISON: 10/22/2021 PROCEDURE COMMENTS: Ultrasound examination of the right upper quadrantperformed by the technologist. Sent to PACS along with tech notes for radiologistreview. FINDINGS: Gallbladder: Resected. Tam's sign: Negative. Liver: Echogenic, unchanged. Common bile duct: Measures 5 mm. (Normal is 6mm or less. If there hasbeen cholecystectomy, normal is 10mm or less.) Pancreas: Visualized portions are normal. Other: Right kidney non-hydronephrotic. IMPRESSION: No change chronic hepatocellular disease appearance of the liver. - Note: Radiology results need to be interpreted within a comprehensiveclinical context. If you have questions about the radiology report, please contactthe office of the ordering clinician. us Geovanni Chau MD IMG US ORDERABLES Final Res ult * (ABNORMAL) CBC (07/01/2025 10:03 AM EDT) WBC 4.9 3.7 - 10.3 x10(3)/mcL 07/01/2025 4:47 PM EDT [facility] RBC 4.47(L) 4.60 - 6.10 x10(6)/mcL 07/01/2025 4:47 PM EDT [facility] Hgb 14.6 13.7 - 17.5 g/dL 07/01/2025 4:47 PM EDT [facility] Hct 44.3 40.0 - 51.0 % 07/01/2025 4:47 PM EDT [facility] MCV 99.1 80.0 - 100.0 fL 07/01/2025 4:47 PM EDT [facility] MCH 32.7 26.0 - 34.0 pg 07/01/2025 4:47 PM EDT [facility] MCHC 33.0 30.7 - 35.5 g/dL 07/01/2025 4:47 PM EDT [facility] RDW 13.6 <=14.9 % 07/01/2025 4:47 PM EDT [facility] Platelet 151(L) 155 - 369 x10(3)/mcL 07/01/2025 4:47 PM EDT [facility], [facility] MPV 11.3 8.8 - 12.5 fL 07/01/2025 4:47 PM EDT [facility], [facility] Blood VENOUS BLOOD / Unknown Venipuncture / Unknown 07/01/2025 10:03 AM EDT 07/01/2025 10:03 AM EDT us Geovanni Chau MD HEMATOLOGY ORDERABLES Final Result [facility] [address] [facility] , [place] [address] * ALPHA FETOPROTEIN TUMOR MARKER -REF LAB (07/01/2025 10:03 AM EDT) AFP TM 3 0 - 9 ng/mL 07/03/2025 6:16 AM EDT [facility] Comment: INTERPRETIVE INFORMATION: Alpha Fetoprotein Tumor Marker The Travis Aba Access DxI AFP method is used. Results obtained with different assay methods or kits cannot be used interchangeably. AFP is a valuable aid in the management of nonseminomatous testicular cancer patients when used in conjunction with information available from the clinical evaluation and other diagnostic procedures. Increased AFP concentrations have also been observed in ataxia telangiectasia, hereditary tyrosinemia, primary hepatocellular carcinoma, teratocarcinoma, gastrointestinal tract cancers with and without liver metastases, and in benign hepatic conditions such as acute viral hepatitis, chronic active hepatitis, and cirrhosis. The result cannot be interpreted as absolute evidence of the presence or absence of malignant disease. The result is not interpretable as a tumor marker in females. Access complete set of age- and/or gender-specific reference intervals for this test in the [facility] Test Directory (Unii). Performed By: [facility] [address] [place] [id number] Bulb Planter: Markie Sheriff MD, PhD CLIA Number: [id number] Blood VENOUS BLOOD / Unknown Venipuncture / Unknown 07/01/2025 10:03 AM EDT 07/01/2025 10:03 AM EDT us Geovanni Chau MD CHEMISTRY ORDERABLES Final Result [facility] [address] [place] [address] * (ABNORMAL) COMPREHENSIVE METABOLIC PANEL (07/01/2025 10:03 AM EDT) Sodium 139 136 - 145 mmol/L 07/01/2025 5:25 PM EDT [facility] Potassium 4.5 3.5 - 5.0 mmol/L 07/01/2025 5:25 PM EDT [facility] Chloride 104 98 - 107 mmol/L 07/01/2025 5:25 PM EDT [facility] Total CO2 25 22 - 29 mmol/L 07/01/2025 5:25 PM EDT [facility] Anion Gap 10 7 - 16 mmol/L 07/01/2025 5:25 PM EDT [facility] Calcium 9.9 8.8 - 10.4 mg/dL 07/01/2025 5:25 PM EDT [facility] Glucose Lvl 100(H) 70 - 99 mg/dL 07/01/2025 5:25 PM EDT [facility] BUN 21 8 - 23 mg/dL 07/01/2025 5:25 PM EDT [facility] Creatinine 1.34(H) 0.67 - 1.30 mg/dL 07/01/2025 5:25 PM EDT [facility] Albumin 4.6 3.2 - 4.6 gm/dL 07/01/2025 5:25 PM EDT [facility] Total Protein 6.8 6.4 - 8.3 gm/dL 07/01/2025 5:25 PM EDT [facility] Bili Total 0.5 0.2 - 1.4 mg/dL 07/01/2025 5:25 PM EDT [facility] ALT 26 <=41 U/L 07/01/2025 5:25 PM EDT [facility] AST 34 <=40 U/L 07/01/2025 5:25 PM EDT [facility], [facility] Alk Phos 77 40 - 129 U/L 07/01/2025 5:25 PM EDT [facility] eGFR (CKD-EPIcr 2020) 53(L) >=60 mL/min/1.7 3 m2 07/01/2025 5:25 PM EDT [facility] Comment:Estimated GFR was ca lculated using the CKD-EPIcr (2020) equation refit without race. The equation is recommended by the National Kidney Foundation - [place] [employer] of Nephrology Task Force. Blood VENOUS BLOOD / Unknown Venipuncture / Unknown 07/01/2025 10:03 AM EDT 07/01/2025 10:03 AM EDT Geovanni Chau MD CHEMISTRY ORDERABLES Final Result [facility] [address] [facility] , [address] [place] [id number] from Last 3 Months Insurance MEDICARE [place] PART A AND B Member Subscriber Plan / Payer (Ef fective 2007-Present) Name:Mayur Marks Member ID:[id number] Relation to Subscriber:Self Name:Mayur Marks Subscriber ID:[id number] Payer ID:Not on file Group ID:Not on file Type:Not on file Address: [address] [place] B Advance Directives For more information, please contact: [phone] Documents on File Type Date Recorded Patient Keyboard Specialist Expl anation ADVANCE DIRECTIVE 11/24/2023 * Full Code (Latest Code Status on File) Date Activated Date Inactivated Comments 05/19/2019 2:50 AM 05/21/2019 7:49 PM Care Teams Manager Business Continuity Relationship Specialty Start Date End Date Teja Gomez MD [address] [facility] [address] [place] [address] PCP - General Family Medicine 12/14/15 Melecio Rico MD [address] [place] [address] [place] [address] Internal Medicine-Cardiovascular Disease 05/12/23
--- OUTSIDE RECORDS SUMMARY | 2025-09-22 10:13 | XMS_ITS | Encounter Summary ---
Author Organization [place] [address] Care Team Providers Care Clinic Supervisor Name Role Phone Teja Gomez MD Primary Care Provider [phone] Melecio Rico MD Unavailable [phone] Encounter Details Date Type Department Care Team (Late st Contact Info) Description 07/03/2020 Orders Only SEP H&V [facility] [address] [place] [address] Melecio Rico MD [address] [place] [address] Social History Tobacco Use Types Packs/Day Years [...] 10:00 AM EST Office Visit SEP H&V [address] [address] Melecio Rico MD [address] [place] [address] [address] [place] [address] 10/05/2025 9:30 AM EST Appointment GRT MED [facility] [address] [place] [address] 01/23/2026 10:30 AM EDT Office Visit [facility] Sleep Medicine [facility] [address] [place] [address] Lilly Kc, CUSTOMER SERVICE AND SALES CONSULTANT [address] [place] [address] documented as of this encounter Procedures Procedure Name Priority Date/Time Associated Diagnosis Comments PACEART REPORT Routine 07/03/2020 11:51 AM EDT documented in this encounter Results * PACEART REPORT (07/03/2020 11:51 AM EDT) 07/03/2020 11:5 1 AM EDT Narrative [facility] - 07/07/2020 1:53 PM EDT No dysrhythmias recorded Sensing, threshold, & impedance stable without evidence of malfunction yaquelin JORGED us Melecio Rico MD [facility] CARDIAC CATH ORDERA BLES Final Result [facility] 1 [place] [address] documented in this encounter Visit Diagnoses Not on filedocumented in this encounter Additional Health Concerns Assessment Noted Time A fall risk assessment has been complete d for the patient 07/13/2019 9:07 AM EDT documented as of this encounter Care Teams Clinic Supervisor Relationship Specialty Start Date End Date Teja Gomez MD [facility] [address] [place] [address] PCP - General Family Medicine 12/14/15 Melecio Rico MD [address] [place] [address] [address] [place] [address] Internal Medicine-Cardiovascular Disease 05/12/23 documented as of this encounter
--- OUTSIDE RECORDS SUMMARY | 2025-09-22 10:13 | XMS_ITS | Encounter Summary ---
Author Organization [place] [address] Care Team Providers Care Broadcast Transmitter Operator Name Role Phone Teja Gomez MD Primary Care Provider [phone] Melecio Rico MD Unavailable [phone] Encounter Details Date Type Department Care Team (Late Contact Info) Description 08/21/2021 Orders Only SEP H&V [facility] [place] [facility] [address] [place] [address] Melecio Rico MD [address] [place] [address] Social History Tobacco Use Types Packs/Day Years [...] 10:00 AM EST Office Visit SEP H&V [place] [address] [place] [address] Melecio Rico MD [address] [place] [address] [place] [address] 10/05/2025 9:30 AM EST Appointment GRT MED [facility] [address] [facility] [place] [address] 01/23/2026 10:30 AM EDT Office Visit [facility] Sleep Medicine [facility] [address] [place] [address] Lilly Kc, PEDIATRICIAN ACTIVE PRACTICE [address] [place] [address] documented as of this encounter Procedures Procedure Name Priority Date/Time Associated Diagnosis Comments PACEART REPORT Routine 08/21/2021 10:45 PM EDT documented in this encounter Results * PACEART REPORT (08/21/2021 10:45 PM EDT) 08/21/2021 10:4 5 PM EDT Narrative [facility] - 08/23/2021 11:04 AM EDT Per Carelink- No events since last session See attachment for full report and details. [email or web address] Melecio Rico MD [facility] CARDIAC CATH ORDERA BLES Final Result [facility] 1 [place] [address] documented in this encounter Visit Diagnoses Not on filedocumented in this encounter Additional Health Concerns Assessment Noted Time A fall risk assessment has been complete d for the patient 07/13/2019 9:07 AM EDT documented as of this encounter Care Teams Broadcast Transmitter Operator Relationship Specialty Start Date End Date Teja Gomez MD [address] [facility] [address] [place] [phone] PCP - General Family Medicine 12/14/15 Melecio Rico MD [address] [place] [address] [address] [place] [address] Internal Medicine-Cardiovascular Disease 05/12/23 documented as of this encounter
--- OUTSIDE RECORDS SUMMARY | 2025-09-22 10:13 | XMS_ITS | Clinical Summary ---
Author Organization [facility] Address [address] [place] [address] Care Team Providers Care Synthetic Plasterer Name Role Phone Teja Gomez MD Primary Care Provider [phone] Noble Briseno MD Unavailable [phone] Allergies No known active allergies Medications amiodarone [...] osteoarthritis of left hip 03/18/2016 Morbid obesity 03/18/2016 Family History Medical History Relation Name [...] Maintenance Due Date Last Done Comments Lipid Monitoring 1959 Tetanus Vaccination (Every 10 Years) 1960 Pneumococcal Vaccine: 50+ Years (1 of 1 - PCV) 992 Zoster-RZV(Shingrix) (1 of 2) 1992 Fall Risk Assessment 2007 RSV Vaccines (1 - 1-dose 75+ series) 2017 Advance Care Planning 11/17/2024 Depression Screening 11/17/2024 COVID-19 Vaccine ( - 2024- season) 2025 Influenza Vaccination (#1) 2025 Medical Devices Implanted Type Area Stock Plan Administrator Device Identifier Shelf Expiration Date Model / Serial / Lot Pinn Sector W/Gription 54mm Implanted:Qty: 1 on 03/19/2016 by Noble Briseno MD at [facility] Left: Hip * J \T\ J DEPUY 01/14/2026 1217-32 [id number] / / [id number] Altrx Acetabular Liner 36mm Implanted:Qty: 1 on 03/19/2016 by Noble Briseno MD at [facility] Left: Hip * J \T\ J DEPUY 01/14/2021 1221-36 -154 / / [id number] Stem Fem Std Collar Corail 12 Implanted:Qty: 1 on 03/19/2016 by Noble Briseno MD at [facility] Left: Hip * J \T\ J DEPUY 10/16/2020 [id number] / / [id number] Hd Oxinium Fem 10/30 36 Mm -3 Implanted:Qty: 1 on 03/19/2016 by Noble Briseno MD at [facility] Left: Hip * COWAN \T\ NEPHEW 11/25/2025 [id number] / / [id number] Insurance MEDICARE Member Subscriber Plan / Payer (Ef fective for All Dates) Name:Mayur Marks Member ID:[id number] Relation to Subscriber:Self Name:Mayur Marks Subscriber ID:[id number] Payer ID:[id number] Group ID:Not on file Type:Medicare Address: [address] [facility] [address] MEDICARE Member Subscriber Plan / Payer (Ef fective for All Dates) Name:KendrickMayur Member ID:[id number] Relation to Subscriber:Self Name:Mayur Marks Subscriber ID:[id number] Payer ID:[id number] Group ID:Not on file Type:Medicare Address: [address] [facility] [place] [id number] [facility] Advance Directives For more information, please contact: [phone] Documents on File Type Date Recorded Patient Security Advisor Expl anation Advance Directives and Living Will 03/19/2016 6:37 AM POA & LIVING WILL * Full Code (Latest Code Status on File) Date Activated Date Inactivated Comments 03/19/2016 1:25 PM 03/20/2016 4:34 PM Care Teams Synthetic Plasterer Relationship Specialty Start Date End Date Teja Gomez MD [address] [place] [address] PCP - General Family Medicine 01/18/16 Noble Briseno MD [address] [place] [address] [place] [address] Orthopedic Surgery 11/24/22
--- OUTSIDE RECORDS SUMMARY | 2025-09-22 10:13 | XMS_ITS | Encounter Summary ---
Author Organization [place] [address] Care Team Providers Care Printer Slotter Helper Name Role Phone Teja Gomez MD Primary Care Provider [phone] Melecio Rico MD Unavailable [phone] Encounter Details Date Type Department Care Team (Late Contact Info) Description 05/01/2020 Orders Only SEP H&V [facility] [place] [address] [place] [address] Melecio Rico MD [address] [place] [address] Social History Tobacco Use Types Packs/Day Years [...] 10:00 AM EST [place] [address] Melecio Rico MD [address] [facility] [place] [address] [place] [address] 10/05/2025 9:30 AM EST Appointment GRT MED [facility] 238 [facility] [place] [address] 01/23/2026 10:30 AM EDT Office Visit [facility] Sleep Medicine [facility] [address] [place] [address] Lilly Kc, SNOWBOARDING INSTRUCTOR [address] [place], [place] [address] documented as of this encounter Procedures Procedure Name Priority Date/Time Associated Diagnosis Comments PACEART REPORT Routine 05/01/2020 4:00 PM EDT documented in this encounter Results * PACEART REPORT (05/01/2020 4:00 PM EDT) 05/01/2020 4:00 PM EDT Melecio Rico MD [facility] CARDIAC CATH ORDERA BLES Final Result [facility] 1 [place] [address] documented in this encounter Visit Diagnoses Not on filedocumented in this encounter Additional Health Concerns Assessment Noted Time A fall risk assessment has been complete d for the patient 07/13/2019 9:07 AM EDT documented as of this encounter Care Teams Printer Slotter Helper Relationship Specialty Start Date End Date Teja Gomez MD 12[address] [facility] [address] [place] [address] PCP - General Family Medicine 12/14/15 Melecio Rico MD [address] [place] [address] [place] [address] Internal Medicine-Cardiovascular Disease 05/12/23 documented as of this encounter
--- OUTSIDE RECORDS SUMMARY | 2025-09-22 10:13 | XMS_ITS | Encounter Summary ---
Author Organization [place] [address] Care Team Providers Care Apple Press Operator Name Role Phone Teja Gomez MD Primary Care Provider [phone] Melecio Rico MD Unavailable [phone] Reason for Visit * Reason Comments Medication Refill Encounter Details Date Type Department Care Team (Late st Contact Info) Description 08/02/2025 Refill [facility] H&V [place] [address] [place] [address] Melecio Rico MD [address] [place] [address] Medication Refill Social History Tobacco Use Types [...] Refills Last Filled Start Date End Date warfarin (COUMADIN) 5 mg Oral TabletIndications :Paroxysmal atrial fibrillation (HCC) Take 2.5mg (1/2 tablet) to 5mg (1 tablet) by mouth daily as instructed per anticoagulation clinic. 54 Tablet 1 5 documented in this encounter Miscellaneous Notes * Telephone Encounter - [facility] - 08/03/2025 10:56 AM EDT E-prescribed warfarin 5 mg #54 with 1 refills to [facility] in [place], receipt confirmed. Michelle Fernandez RPH documented in this encounter Plan of Treatment Upcoming Encounters Date Type Department Care Team (Late st Contact Info) Description 10/03/2025 10:00 AM EST Office Visit SEP H&V [address] [address] eMlecio Rico MD [address] [place] [address] 10/05/2025 9:30 AM EST Appointment GRT [facility] 238 [facility] [place] [address] 01/23/2026 10:30 AM EDT Office Visit SEP Sleep Medicine [facility] [address] [place] [address] Lilly Kc, CASINO SHIFT MANAGER [address] [place] [address] documented as of this encounter Visit Diagnoses Diagnosis Paroxysmal atrial fibrillation (HCC) Atrial fibrillation documented in this encounter Discontinued Medications Medication Sig Discontinue Reason Start Date End Da te warfarin (COUMADIN) 5 mg Oral TabletIndications:Parox ysmal atrial fibrillation (HCC) Take 5mg (1 Tablet) every Friday and 2.5mg (1/2 Tablet) all other days OR as instructed per [facility]. (90 day supply) 02/02/2025 08/03/2025 documented as of this encounter Additional Health Concerns Assessment Noted Time A fall risk assessment has been complete d for the patient 07/13/2019 9:07 AM EDT documented as of this encounter Care Teams Apple Press Operator Relationship Specialty Start Date End Date Teja Gomez MD [facility]0 [place] [address] [place] [address] PCP - General Family Medicine 12/14/15 Melecio Rico MD [address] [facility] [address] [place], [place] [address] Internal Medicine-Cardiovascular Disease 05/12/23 documented as of this encounter
--- OUTSIDE RECORDS SUMMARY | 2025-09-22 10:13 | XMS_ITS | Encounter Summary ---
Author Organization [place] [address] Care Team Providers Care Counterintelligence/Humint Specialist Name Role Phone Teja Gomez MD Primary Care Provider [phone] Melecio Rico MD Unavailable [phone] Encounter Details Date Type Department Care Team (Late st Contact Info) Description 04/17/2022 Orders Only SEP [facility] [address] [facility] [address] [place] [address] Geovanni Chau MD [address] [place] [address] Social History Tobacco Use Types Packs/Day Years [...] 10:00 AM EST Office Visit SEP H&V [place] [address] [place] [address] Melecio Rico MD [address] [place] [address] [place] [address] 10/05/2025 9:30 AM EST Appointment GRT MED [facility] [address] [facility] [place] [address] 01/23/2026 10:30 AM EDT Office Visit [facility] [address] [place] [address] Lilly Kc, GAS COMPRESSOR TURBINE OPERATOR [address] [place] [address] documented as of this encounter Procedures Procedure Name Priority Date/Time Associated Diagnosis Comments GMED COLONOSCOPY Routine 04/17/2022 10:0 0 AM EDT documented in this encounter Results * GMED COLONOSCOPY (04/17/2022 10:00 AM EDT) 04/17/2022 10:0 0 AM EDT Impressions [facility] - 04/17/2022 11:10 AM EDT Plan: This section is an excerpt of the full report. Geovanni Chau MD GI PROCEDURE ORDERABLES Papa vijay Result - Final [facility] 1 [place] [address] documented in this encounter Visit Diagnoses Not on filedocumented in this encounter Additional Health Concerns Assessment Noted Time A fall risk assessment has been complete d for the patient 07/13/2019 9:07 AM EDT documented as of this encounter Care Teams Counterintelligence/Humint Specialist Relationship Specialty Start Date End Date Teja Gomez MD [facility]0 [place] [address] [place] [address] PCP - General Family Medicine 12/14/15 Melecio Rico MD [address] [place] [address] [address] [place] [address] Internal Medicine-Cardiovascular Disease 05/12/23 documented as of this encounter
--- OUTSIDE RECORDS SUMMARY | 2025-09-22 10:13 | XMS_ITS | Encounter Summary ---
Author Organization [place] [address] Care Team Providers Care Emergency Telecommunications Dispatcher Name Role Phone Galindo Gomez MD Primary Care Provider [phone] Teja Gomez MD Primary Care Provider [phone] Melecio Rico MD Unavailable [phone] Encounter Details Date Type Department Care Team (Late st Contact Info) Description 01/11/2010 Orders Only SEP H&V [facility] [place] [address] [place] [address] Klaus Knapp MD [address] [place] [address] [phone] (Fax) Social History Tobacco Use Types Packs/Day [...] 10:00 AM EST Office Visit SEP H&V [place] [address] [place] [address] Melecio Rico MD [address] [place] [address] 10/05/2025 9:30 AM EST Appointment GRT [address] [place] [address] 01/23/2026 10:30 AM EDT Office Visit SEP Sleep Medicine [address] [address] Lilly Kc, SPECIAL CERTIFICATE DICTATOR [address] [place] [address] documented as of this encounter Procedures Procedure [...] a practice prior to that practice using [facility] for Medical Records. Performing Provider: Klaus Mccurdy M.D. Klaus Knapp MD IMG ECHO ORDERABLES Final Result documented in this encounter Visit Diagnoses Not on filedocumented in this encounter Care Teams Emergency Telecommunications Dispatcher Relationship Specialty Start Date End Date Galindo Gomez MD [address] [place] [address] [address] [place] [address] PCP - General Psychiatry & Neurology-Neurology 10/16/11 12/13/15 Teja Gomez MD [facility] [place] [address] [place] [address] PCP - General Family Medicine 12/14/15 Melecio Rico MD [address] [place] [address] Internal Medicine-Cardiovascular Disease 05/12/23 documented as of this encounter
--- OUTSIDE RECORDS SUMMARY | 2025-09-22 10:13 | XMS_ITS | Data Portability ---
Author Organization [facility] DULCE Soares [place] Address [address] [facility] [address] [place] [address] Assessment No assessment recorded. Plan of Treatment Reminders Order Date Submit Date Provider Last Modified By Organization Details Last Modified Time Details Appointments None record ed. Lab None record ed. Referral None record ed. Procedures None record ed. Surgeries None record ed. Imaging None record ed. Medication Orders None record ed. Patient TargetsNo targets recorded. Patient InstructionsNo instructions recorded. Reason for Referral None Reported. Results Created Date Observation Date Name Description Value Unit Range Abnormal Flag Note LastModifiedBy Organization Detail LastModifiedTime 04/18/20 22 04/18/2022 audio gram No observ ation record ed. BARCODE Not Available 2021 11:01:32 Result Notes None recorded. Procedures Surgical History Date Name Laterality Status Provider Name and Address Organization Details Recorded Time 2 Tympanogram completed KENDRICK RAI, AUD [address] [place], [address], [facility] 04/18/2022 10:56:43 2 Balance Testing completed KENDRICK RAI, AUD [address] [place], [address], [facility] 04/18/2022 10:55:41 2 Audiogram completed KENDRICK RAI AUD [address] [place], [address], [facility] 04/18/2022 10:56:41 Imaging Results None recorded. Procedure Notes None recorded. Medical Equipment None Reported. Vitals None Recorded Social History None recorded. Functional Status None recorded. Mental Status None recorded. Family History Nothing Reported. Medical History No medical history recorded. 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 5023744069 9107 H90.A32 Otorrhea of left ear 016 3525474 859630 H92.12 Health Concerns Section Related Observation LastModified by Organization Detai ls LastModified Time None Recorded Concern Status LastModified by Organization Details LastModified Time None Recorded Advance Directives Directive None Recorded Payers Insurance Date Sequence Insurance Name Policy Number Policy Flanagan Covered Member ID Flanagan Member ID Guarantor Name 04/18/2022 1 [place] Mayur Marks [id number] Mayur Marks 04/17/2022 2 [employer] (MEDICARE SUPPLEMENT) Mayur Marks [id number] Mayur Marks
--- OUTSIDE RECORDS SUMMARY | 2025-09-22 10:13 | XMS_ITS | Patient Health Record ---
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 Plan Of Treatment No Information Insurance Providers Payer Name Payer Address Payer Phone Subscriber Number Group Number Insured Name Patient Relationship to Insured Coverage Start Date Coverage End Date MEDICARE [place] [address] [id number] Mayur Martin Self - patient [place] the [place] [address] [id number] Mayur Martin Self - patient is the insured Medical (General) History Medical History History ICD Code Thyroid Disease Yes hypertension Yes asthma No Diabetes No Diabetes Insulin Dependent No Heart Disease Yes Cancer No Lung Disease No kidney stones No Surgical History Surgery Date(Month/Year) tonsillectomy adenoidectomy Ear Heart Abdominal Joint/Bone
--- OUTSIDE RECORDS SUMMARY | 2025-09-22 10:13 | XMS_ITS | Encounter Summary ---
Author Organization [place] [address] Care Team Providers Care Pipefitter Helper Name Role Phone Teja Gomez MD Primary Care Provider [phone] Melecio Rico MD Unavailable [phone] Encounter Details Date Type Department Care Team (Latest Contact Info) Description 07/12/2025 Results Follow-Up SEP [facility]STRO [facility] [address] [facility] [address] ENTRANCE, 3[address] [place] [address] Geovanni Chau MD [address] [place] [address] ALPHA FETOPROTEIN TUMOR MARKER -REF LAB, COMPREHENSIVE METABOLIC PANEL, CBC, US RIGHT UPPER QUADRANT Social History Tobacco Use Types Packs/Day Years [...] 10:00 AM EST Office Visit SEP H&V [address] [address] Melecio Rico MD [address] [place] [address] 10/05/2025 9:30 AM EST Appointment GRT MED [facility] [address] [facility] [place] [address] 01/23/2026 10:30 AM EDT Office Visit SEP Sleep Medicine [facility] [address] [place] [address] Lilly Kc, CHARGEBACK SPECIALIST [address] [place] [address] documented as of this encounter Visit Diagnoses Not on filedocumented in this encounter Additional Health Concerns Assessment Noted Time A fall risk assessment has been complete d for the patient 07/13/2019 9:07 AM EDT documented as of this encounter Care Teams Pipefitter Helper Relationship Specialty Start Date End Date Teja Gomez MD [facility] [address] [place] [address] PCP - General Family Medicine 12/14/15 Melecio Rico MD [address] [place] [address] [place] [address] Internal Medicine-Cardiovascular Disease 05/12/23 documented as of this encounter
== END 2025-09-20 23:59 ==
LOC: LAB.DROPOF 09-22 10:03
PROVIDERS: PCP Family Medicine; Visit Provider Family Medicine
DX: L73.9 Follicular disorder, unspecified (principal)
CPT/HCPCS: 80053; 85007; 85014; 85018; 85048; 85049

== ENCOUNTER 2025-11-01 11:15 | Outpatient (CLI) | payer MEDICARE, OTHER, SELFPAY ==
--- OUTSIDE RECORDS SUMMARY | 2025-10-05 08:57 | XMS_ITS | Encounter Summary ---
Author Organization [place] [address] Care Team Providers Care Reservation Clerk Name Role Phone Teja Gomez MD Primary Care Provider [phone] Melecio Rico MD Unavailable [phone] Encounter Details Date Type Department Care Team (Latest Contact Info) Description 10/05/2025 8:57 AM EST - 10/05/2025 11:59 PM [facility] Hospital Encounter [facility] MED [facility] [address] [facility] [place] [address] Paroxysmal atrial fibrillation (HCC) (Primary Dx); Encounter for therapeutic drug monitoring; terminologist (current) use of anticoagulants Discharge Disposition: Home [...] Capsule Take 100 mg by mouth daily. doxepin (SINEQUAN) 10 mg Oral Capsule Take 10 mg by mouth 3 times daily. 5 finasteride (PROSCAR) 5 mg Oral Tablet Take [...] 2 times daily. 60 Tablet 2 4 PANTOPRAZOLE SODIUM (PROTONIX ORAL) Take 40 mg [...] per anticoagulation clinic. 54 Tablet 1 5 metoprolol succinate (TOPROL-XL) 50 mg Oral Tablet Sustained Release 24 hrIndications:PVC (premature ventricular contraction) Take 1 Tablet by mouth daily. 100 Tablet 1 5 11/02/20 25 documented as of this encounter Discharge Disposition Disposition Code Departure Means Destination Home or Self Care documented in this encounter Progress Notes * Chase, Tara - 10/05/2025 9:30 AM EST Follow-Up Visit Mayur Marks was seen today for assessment, management and follow-up of his anticoagulation status. The patient was referred by Dr. Rico and has a medical history significant for atrial fibrillation. [id number] Stroke Risk Points: 3 Values used to calculate this score: Points Metrics 0 Has Congestive Heart Failure: No 1 Has Hypertension: Yes 2 Age: 85 0 Has Diabetes: No 0 Had Stroke: No Had TIA: No Had Thromboembolism: No 0 Has Vascular Disease: No 0 Clinically Relevant Sex: Male The patient was interviewed and reports the following: Missed doses: held dose 09/27-10/01 while taking abx per PMD instructions ILLUSTRATOR SET meds reconciled: Yes, reviewed Medication changes: doxepin added, took course of levaquin per PMD Dietary changes: none Alcohol use: none Nutritional supplements: none Reports of unexpected bleeding: none Bruising, swelling, redness, or unexplained lumps: none Numbness or weakness: none Breathing difficulty: none Problems with confusion, balance, or light-headedness: none Other problems or concerns: steroid cream for itching per PMD Recent Hospitalizations: none Upcoming procedures/bridging needs: none INR = 1.2 (goal 2.0-3.0) well below goal and down from 2.4 at last visit after interruption in therapy. Weekly dose= 20 mg Tablet size= 5 mg The patient was instructed to take 5mg today only, then continue current warfarin dose of 5 mg Tue and 2.5 mg the remainder of the week. Counseled pt to call [facility] when given a new medication, especially abx. The next INR is scheduled for 2 weeks per pt demand as he will not return sooner as requested (importance of keeping appointments for INR checks reinforced). The patient was provided with written dosing instructions as noted above and verbalizes understanding. Cosigned by Michelle Fernandez RPH at 10/05/2025 9:37 AM EST Associated attestation - Michelle Fernandez RPH - 10/05/2025 9:37 AM EST No lovenox bridge for current CHEST guidelines for [id number] Stroke Risk Points: 3. Subtherapeutic INR value d/t held warfarin doses. Plan reviewed and discussed with no changes per Michelle Fernandez, Pharm.D. documented in this encounter Plan of Treatment Upcoming Encounters Date Type Department Care Team (Late st Contact Info) Description 12/14/2025 9:30 AM EST Appointment GRT MED [facility] [address] [facility] [place] [address] 01/23/2026 10:30 AM EDT Office Visit [facility] Sleep Medicine [address] [address] Lilly Kc, CHIMNEY BUILDER BRICK [address] [place] [address] 06/12/2026 10:00 AM EDT Office Visit [facility] H&V [address] [address] Melecio Rico MD [address] [place], [place] [id number] documented as of this encounter Procedures Procedure Name Priority Date/Time Associated Diagnosis Comments POCT PT/INR Routine 10/05/2025 8:57 AM EST Paroxysmal atrial fibrillation (HCC) Encounter for therapeutic drug monitoring [facility] (current) use of anticoagulants documented in this encounter Results * POCT PT/INR (10/05/2025 8:57 AM EST) Protime [facility] INR 1.20 (ratio) [facility] Lot Number [facility] Expiration Date [facility] SeriAl # [facility] 10/05/2025 8:57 AM EST us Melecio Rico MD POINT OF CARE TEST TRISTON FLANNERY Final Result [facility] [address] [id number], [facility] documented in this encounter Visit Diagnoses Diagnosis Paroxysmal atrial fibrillation (HCC)- Primary Atrial fibrillation Encounter for therapeutic drug monitoring terminologist (current) use of anticoagulants Long-term (current) use of anticoagulants documented in this encounter Historical Medications * This list may reflect changes made after this encounter. doxepin (SINEQUAN) 10 mg Oral Capsule Take 10 mg by mouth 3 times daily. 09/30/2025 added in this encounter Additional Health Concerns Assessment Noted Time A fall risk assessment has been complete d for the patient 07/13/2019 9:07 AM EDT documented as of this encounter Care Teams Reservation Clerk Relationship Specialty Start Date End Date Teja Gomez MD [facility] [address] [address] [place] [id number] PCP - General Family Medicine 12/14/15 Melecio Rico MD [address] [place] [address] [place] [address] Internal Medicine-Cardiovascular Disease 05/12/23 documented as of this encounter
--- OUTSIDE RECORDS SUMMARY | 2025-10-12 10:00 | XMS_ITS | Encounter Summary ---
Author Organization [place] [address] Care Team Providers Care Systems Trainer Name Role Phone Teja Gomez MD Primary Care Provider [phone] Melecio Rico MD Unavailable [phone] Reason for Visit * Reason Comments Follow-up pt 8 mo Encounter Details Date Type Department Care Team (Late Contact Info) Description 10/12/2025 10:00 AM EST Office Visit [facility] [address] [place] [id number] Steve Askew, DO [address] [place] [address] Paroxysmal atrial fibrillation (HCC) (Primary Dx); PVC (premature ventricular contraction); Essential hypertension; Cardiac pacemaker in situ; Dyslipidemia; EMERSON (obstructive sleep apnea) wears BPAP; Hypothyroidism, unspecified type; CKD stage 3a, GFR 45-59 ml/min (HCC); Skin rash Social History Tobacco Use Types Packs/Day Years [...] on file documented as of this encounter Last Filed Vital Signs Vital Sign Reading Time Taken Comments Blood Pressure 130/80 10/12/2025 10:11 AM EST Pulse 83 10/12/2025 10:11 AM EST Temperature - - Respiratory Rate - - Oxygen Saturation 96% 10/12/2025 10:11 AM EST Inhaled Oxygen Concentration - - Weight 135.6 kg (299 lb) 10/12/2025 10:11 AM EST Height 167.6 cm (5' 6 ) 10/12/2025 10:11 AM EST Body Mass Index 48.26 10/12/2025 10:11 AM EST documented in this encounter Progress Notes * Steve Askew, - 10/12/2025 10:00 AM EST Images from the original note were not included. [facility] [place] Chief Complaint Patient presents with Follow-up GH pt 8 mo Subjective HPI I had the pleasure of seeing Mayur today. The patient is a very pleasant 85 y.o. male who presents for a routine follow up visit. The patient has experienced 6 months of generalized itching and has been recommended to stop amiodarone and see if that's the cause. He also might be sent to dermatology by his PCP. He is otherwise stable from a cardiac standpoint. Was off coumadin for 5 days for levaquin. Has restarted coumadin now . INR recheck in 2 weeks. Past Medical History[1] Surgical History[2] reports that he has never smoked. He has never used smokeless tobacco. He reports that he does not drink alcohol and does not use drugs. Family History[3] Allergies Patient has no known allergies. Medications Current Medications[4] Objective: Vitals: 10/12/25 1011 BP: 130/80 Pulse: 83 SpO2: 96% Weight: 299 lb (135.6 kg) Height: 5' 6 (1.676 m) BSA: Estimated body surface area is 2.37 meters squared as calculated from the following: Height as of this encounter: 5' 6 (1.676 m). Weight as of this encounter: 299 lb (135.6 kg). BMI: Estimated body mass index is 48.26 kg/m?? as calculated from the following: Height as of this encounter: 5' 6 (1.676 m). Weight as of this encounter: 299 lb (135.6 kg). Physical Exam General: Alert and oriented ??3, in no acute distress HEENT: Atraumatic, normocephalic, moist mucous membranes NECK: No JVD Heart: Regular rate and rhythm, no gallops, rubs or murmurs Lungs: Nonlabored respirations, clear to auscultation bilaterally, no wheezes rales or rhonchi Abdomen: Protuberant Extremities: No cyanosis or clubbing. No lower extremity edema Skin: Diffuse erythematous macules and papules on chest and abdomen. Itchy Lab Results Component Value Date HDL 45 05/19/2019 HDL 50 09/19/2017 Lab Results Component Value Date CHOLESTEROL 113 05/19/2019 Lab Results Component Value Date LDLCALC 54 05/19/2019 Lab Results Component Value Date TRIG 71 05/19/2019 Lab Results Component Value Date ALT 26 07/01/2025 AST 34 07/01/2025 Lab Results Component Value Date NA 139 07/01/2025 K 4.5 07/01/2025 CL 104 07/01/2025 CO2 25 07/01/2025 ANIONGAP 10 07/01/2025 CALCIUM 9.9 07/01/2025 GLU 100 (H) 07/01/2025 BUN 21 07/01/2025 CREATININE 1.34 (H) 07/01/2025 GFRAFRAM 60 07/20/2020 GFRNONAFRAM 52 (L) 07/20/2020 GFRCKDEPI 53 (L) 07/01/2025 Lab Results Component Value Date WBC 4.9 07/01/2025 HGB 14.6 07/01/2025 HCT 44.3 07/01/2025 MCV 99.1 07/01/2025 PLT 151 (L) 07/01/2025 Last results for Hgb A1C and Microalbumin: Hgb A1C Date Value Ref Range Status 05/19/2019 5.3 4.2 - 5.6 % Final Cardiac Testing: Echo 10/31: EF 55%. Mild LVD and moderate LVH. Moderate TR. RVSP 33. Aortic root 3.8 cm. Stress test 09/01: no definite ischemia, very mild and focal, mostly fixed, apical defect, unlikelyto represent ischemia Echo 11/03: EF 60%. Mild to mod LVH. Mild TR/AI. Ascending aorta 4 cm. Echo 08/06: EF 55-60%, mild RA/RV dilatation, mild late systolic prolapse anterior mitral valve leaflet. Trace MR. Aortic root 4.3 cm, ascending aorta 4.0 cm, aortic arch 3.82 cm Echo 05/09: EF 50-55%. Mod LVH. Mild RVD. Mild MR/TR/PI. Asc aorta 4.1 cm. I personally reviewed most recent CBC, BMP, AST, ALT, and lipid panel. I also reviewed the most recent ECG, ECHO and other imaging tests. Assessment and Plan: Paroxysmal atrial fibrillation Anticoagulation with coumadin, INR 1.2 a week ago after stopping coumadin for levaquin. Follows at the coumadin clinic. Rate control with metoprolol. While I do not believe that Amiodarone is the cause, okay to hold it. I discussed with the patient that Amiodarone has a long halflife and he may have to wait to see any effect if that's the cause. Liver function and enzymes are normal. Skin rash Holding amiodarone to see if cause of itching. PCP to refer to dermatology Symptomatic bradycardia s/p pacemaker Implanted 2011. PVC Controlled with metoprolol succinate 50mg daily Hypertension Controlled. Continue HCTZ and Toprol XL EMERSON on BiPAP Dyslipidemia Continue crestor 20mg daily Hypothyroidism CKD stage 3a- Stable Mayur will follow up in 8 months. Steve Askew DO 10/12/2025 10:37 AM [1] Past Medical History: Diagnosis Date Arthritis Atrial fibrillation (HCC) Cardiac dysrhythmia, unspecified Hyperlipidemia Hypertension echo 10/2011 showed EF 60-65%, diastolic dysfunction, mod LAD, mild RAD, mild MR Meniere disease 06/25/2012 EMERSON (obstructive sleep apnea) Syncope and collapse Thyroid disease [2] Past Surgical History: Procedure Laterality Date APPENDECTOMY CARDIAC CATHETERIZATION 2002 normal coronary arteries and pEF CHOLECYSTECTOMY, LAPAROSCOPIC N/A 06/01/2019 Laparoscopic cholecystectomy ; Surgeon: Timothy Macias MD; Location: [facility]; Service: General COLONOSCOPY EYE SURGERY L cataract HERNIA REPAIR umbilical PACEMAKER INSERTION 03/2012 ROTATOR CUFF REPAIR right SKIN CANCER EXCISION 08/20/2016 TOTAL HIP ARTHROPLASTY vasile hips UPPER GASTROINTESTINAL ENDOSCOPY UPPER GASTROINTESTINAL ENDOSCOPY N/A 08/25/2019 ESOPHAGOGASTRODUODENOSCOPY; Surgeon: eGovanni Chau MD; Location: ED ENDOSCOPY; Service: Endoscopy [3] Family History Problem Relation Age of Onset Heart Attack Father Heart Disease Father Heart Failure Mother Heart Surgery Brother [4] Current Outpatient Medications Medication Sig Dispense Refill albuterol (PROVENTIL HFA;VENTOLIN HFA) 90 mcg/actuation Inhl HFA Aerosol Inhaler Inhale 2 Puffs into the lungs every 4 hours as needed. allopurinol (ZYLOPRIM) 300 mg Oral Tablet Take 300 mg by mouth. aspirin 81 mg tablet Take 81 mg by mouth daily. Bifidobacterium Infantis (ALIGN) 4 mg Oral Capsule Take 1 Capsule by mouth daily. 30 Capsule 2 Coenzyme Q10 100 mg Oral Capsule Take 100 mg by mouth daily. doxepin (SINEQUAN) 10 mg Oral Capsule Take 10 mg by mouth 3 times daily. finasteride (PROSCAR) 5 mg Oral Tablet Take 5 mg by mouth daily. hydroCHLOROthiazide (MICROZIDE) 12.5 mg Oral Capsule Take 12.5 mg by mouth daily. Taking every other day. lamiVUDine (EPIVIR) 100 mg Oral Tablet Take 1 Tablet by mouth daily. 90 Tablet 3 LEVOTHYROXINE SODIUM (LEVOTHYROXINE ORAL) Take 25 mcg by mouth daily. loratadine (CLARITIN) 10 mg Oral Tablet Take 10 mg by mouth as needed (allergies). meclizine (ANTIVERT) 25 mg tablet Take 25 mg by mouth 2 times daily. methylcellulose (CITRUCEL) 500 mg Oral Tablet Take 1 Tablet by mouth 2 times daily. 60 Tablet 2 metoprolol succinate (TOPROL-XL) 50 mg Oral Tablet Sustained Release 24 hr Take 1 Tablet by mouth daily. 100 Tablet 1 PANTOPRAZOLE SODIUM (PROTONIX ORAL) Take 40 mg by mouth daily. potassium chloride (KLOR-CON M) 20 mEq Oral Tab Sust.Rel. Particle/Crystal Take 20 mEq by mouth daily. rosuvastatin (CRESTOR) 20 mg Oral Tablet Take 20 mg by mouth nightly. 6 spironolactone (ALDACTONE) 25 mg Oral Tablet Take 1 Tab by mouth daily. 30 Tab 11 valACYclovir (VALTREX) 500 mg Oral Tablet Take 500 mg by mouth every 12 hours. Vitamin A-Vitamin C-Vit E-Min Oral Tablet Take 1 Tablet by mouth daily. warfarin (COUMADIN) 5 mg Oral Tablet Take 2.5mg (1/2 tablet) to 5mg (1 tablet) by mouth daily as instructed per anticoagulation clinic. 54 Tablet 1 amiodarone (PACERONE) 200 mg Oral Tablet Take 0.5 Tabs by mouth daily. (Patient not taking: Reported on 10/12/2025) 30 Tab 6 No current facility-administered medications for this visit. documented in this encounter Plan of Treatment Upcoming Encounters Date Type Department Care Team (Late st Contact Info) Description 12/14/2025 9:30 AM EST Appointment GRT MED [facility] [address] [facility] [place] [address] 01/23/2026 10:30 AM EDT Office Visit [facility] Sleep [facility] [address] [place] [address] Lilly Kc, [employer] [address] [place] [address] 06/12/2026 10:00 AM EDT Office Visit [facility] [address] [address] Melecio Rico MD [address] [place] [address] documented as of this encounter Visit Diagnoses Diagnosis Paroxysmal atrial fibrillation (HCC)- Primary Atrial fibrillation PVC (premature ventricular contraction) Other premature beats Essential hypertension Unspecified essential hypertension Cardiac pacemaker in situ Dyslipidemia Other and unspecified hyperlipidemia EMERSON (obstructive sleep apnea) wears BPAP Obstructive sleep apnea (adult) (pediatric) Hypothyroidism, unspecified type CKD stage 3a, GFR 45-59 ml/min ([facility]) Skin rash Rash and other nonspecific skin eruption documented in this encounter Additional Health Concerns Assessment Noted Time A fall risk assessment has been complete d for the patient 07/13/2019 9:07 AM EDT documented as of this encounter Care Teams Systems Trainer Relationship Specialty Start Date End Date Teja Gomez MD [address] [facility] [address] [place] [address] PCP - General Family Medicine 12/14/15 Melecio Rico MD [address] [place] [address] [place] [address] Internal Medicine-Cardiovascular Disease 05/12/23 documented as of this encounter
--- OUTSIDE RECORDS SUMMARY | 2025-10-19 08:48 | XMS_ITS | Encounter Summary ---
Author Organization [place] [address] Care Team Providers Care Manufacturing Software Engineer Name Role Phone Teja Gomez MD Primary Care Provider [phone] Melecio Rico MD Unavailable [phone] Encounter Details Date Type Department Care Team (Latest Contact Info) Description 10/19/2025 8:48 AM EST - 10/19/2025 11:59 PM [facility] Hospital Encounter GRT MED [facility] [address] [facility] 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 The patient was referred by Dr. Rico and has a medical history significant for atrial fibrillation. 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 reconciled: Yes, reviewed Medication changes: none Dietary changes: none Alcohol use: none Nutritional supplements: none Reports of unexpected bleeding: none Bruising, swelling, redness, or unexplained lumps: none Numbness or weakness: none Breathing difficulty: none Problems with confusion, balance, or light-headedness: none Other problems or concerns: none Recent Hospitalizations: none Upcoming procedures/bridging needs: none INR = 2.2 (goal 2.0-3.0) within goal and stable; up from 1.2 at last visit after dose alteration byMD Weekly dose= 20 mg Tablet size= 5 [...] noted above and verbalizes understanding. Cosigned by Cristina Pal PharmD at 10/19/2025 9:02 AM EST Associated attestation - Cristina Pal PharmD - 10/19/2025 9:02 AM EST Reviewed and agree with plan as outlined. Cristina Pal, [place] documented in this encounter Plan of Treatment Upcoming Encounters Date Type Department Care Team (Late st Contact Info) Description 12/14/2025 9:30 AM EST Appointment [facility] [address] [facility]. 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 documented in this encounter Results * POCT PT/INR (10/19/2025 8:55 AM EST) Protime [facility] INR 2.20 (ratio) [facility] Lot Number [facility] Expiration Date [facility] SeriAl # [facility] 10/19/2025 8:55 AM EST us Melecio Rico MD POINT OF CARE TEST TRISTON FLANNERY Final Result [facility] [address] [id number], [facility] documented in this encounter Visit Diagnoses Diagnosis Paroxysmal atrial fibrillation (HCC)- Primary Atrial fibrillation Encounter for therapeutic drug monitoring 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
[2025-11-01 14:59] LABS: Hematocrit 42.4 % (42.0-52.0); Hemoglobin 14.5 g/dL (14.1-18.0); Mean Corpuscular HGB Conc 34.2 g/dL (31.8-35.4); Mean Corpuscular Hemoglobin 33.1 pg (27.0-31.2); Mean Corpuscular Volume 96.8 fl (80-94); Platelet Count 145 K/mm3 (142-424); Red Blood Count 4.38 M/mm3 (4.60-6.20); White Blood Count 5.7 K/mm3 (4.8-10.8)
[2025-11-01 15:46] LABS: Alanine Aminotransferase 32 U/L (12-78); Albumin Level 4.4 g/dl (3.5-5.0); Albumin/Globulin Ratio 1.6 (1.1-1.8); Alkaline Phosphatase 88 U/L (38-126); Anion Gap 11.8 mEq/L (5-15); Aspartate Amino Transferase 42 U/L (17-59); Bilirubin,Total 0.7 mg/dl (0.2-1.3); Blood Urea Nitrogen 24 mg/dl (9-20); Calcium 9.6 mg/dl (8.4-10.2); Carbon Dioxide 28 mmol/L (22.0-30.0); Chloride 106 mmol/L (98-107); Creatinine,Serum 1.40 mg/dl (0.66-1.25); Estimated Glomerular Filt Rate 48 ml/min (>60); GFR (African American) 59 ML/MIN (>60); Globulin 2.7 g/dL (1.3-3.2); Glucose 116 mg/dl (74-100); Potassium 4.8 mmoL/L (3.5-5.1); Sodium 141 mmol/L (136-145); Total Protein,Serum 7.1 g/dl (6.3-8.2)
[2025-11-01 16:15] LABS: RBC Morphology Normal; Total Cells Counted 100
[2025-11-02 14:12] LABS: Antinuclear Antibodies (ANA) Negative (Negative)
--- OUTSIDE RECORDS SUMMARY | 2025-11-02 19:38 | XMS_ITS | Encounter Summary ---
Author Organization [place] [address] Care Team Providers Care Recreation Superintendent Name Role Phone Teja Gomez MD Primary Care Provider [phone] Melecio Rico MD Unavailable [phone] Encounter Details Date Type Department Care Team (Late st Contact Info) Description 04/15/2021 Orders Only [facility] [place] [facility] [address] [place] [address] Melecio Rico MD [address] [place] [address] Social History Tobacco Use Types Packs/Day Years [...] Description 12/14/2025 9:30 AM EST Appointment [facility] [address] [place] [address] 01/23/2026 10:30 AM EDT Office Visit [facility] Sleep Medicine [address] [phone] Lilly Kc, SHOWPLACE MANAGER [address] [place] [address] 06/12/2026 10:00 AM EDT Office Visit [facility] [place] [address] [place] [address] Melecio Rico MD [address] [place] [address] [place] [address] documented as of this encounter Procedures Procedure Name Priority Date/Time Associated Diagnosis Comments PACEART REPORT Routine 04/15/2021 9:19 PM EDT documented in this encounter Results * PACEART REPORT (04/15/2021 9:19 PM EDT) 04/15/2021 9:19 PM EDT Narrative [facility] - 04/17/2021 11:32 AM EDT Per [facility]- No events since last session See attachment for full report and details. [email or web address] Melecio Rico MD [facility] CATH ORDERA BLES Final Result [facility] [address] [place] [address] documented in this encounter Visit Diagnoses Not on filedocumented in this encounter Additional Health Concerns Assessment Noted Time A fall risk assessment has been complete d for the patient 07/13/2019 9:07 AM EDT documented as of this encounter Care Teams Recreation Superintendent Relationship Specialty Start Date End Date Teja Gomez MD [address] [facility] [address] [place] [phone] PCP - General Family Medicine 12/14/15 Melecio Rico MD [address] [place] [address] [address] [place] [address] Internal Medicine-Cardiovascular Disease 05/12/23 documented as of this encounter
--- OUTSIDE RECORDS SUMMARY | 2025-11-02 19:38 | XMS_ITS | Encounter Summary ---
Author Organization [place] [address] Care Team Providers Care Trolley Car Operator Name Role Phone Teja Gomez MD Primary Care Provider [phone] Melecio Rico MD Unavailable [phone] Encounter Details Date Type Department Care Team (Late st Contact Info) Description 08/23/2025 Results Follow-Up [facility] [place] [address] [place] [address] Melecio Rico MD [address] [place] [address] VECTOR REMOTE DEVICE Social History Tobacco Use [...] 12/14/2025 9:30 AM EST Appointment GRT MED [facility] [address] [place] [address] 01/23/2026 10:30 AM EDT Office Visit SEP Sleep Medicine [address] [address] Lilly Kc, MACHINE MOVER [address] [place] [address] 06/12/2026 10:00 AM EDT Office Visit SEP H&V [place] [address] [place] [address] Melecio Rico MD [address] [place] [address] [place] [address] documented as of this encounter Visit Diagnoses Not on filedocumented in this encounter Additional Health Concerns Assessment Noted Time A fall risk assessment has been complete d for the patient 07/13/2019 9:07 AM EDT documented as of this encounter Care Teams Trolley Car Operator Relationship Specialty Start Date End Date Teja Gomez MD [address] [place] [address] [address] [place] [address] PCP - General Family Medicine 12/14/15 Melecio Rico MD [address] [place] [address] [place] [address] Internal Medicine-Cardiovascular Disease 05/12/23 documented as of this encounter
--- OUTSIDE RECORDS SUMMARY | 2025-11-02 19:38 | XMS_ITS | Data Portability ---
Author Organization [facility] DULCE Soares [place] CLOSED Address [address] [facility] [address] [place] [address] Assessment No assessment recorded. Plan of Treatment [...] 2 Tympanogram completed KENDRICK RAI, AUD [address] [place], [address], [facility] 04/18/2022 10:56:43 2 Balance Testing completed KENDRICK RAI, AUD [address] [place], [address], [facility] 04/18/2022 10:55:41 2 Audiogram completed KENDRICK RAI AUD [address] [place], [address], [facility] 04/18/2022 10:56:41 Imaging Results None recorded. Procedure Notes None recorded. Medical Equipment None Reported. Vitals None Recorded Social History None recorded. Functional Status None recorded. Mental Status None recorded. Family History Nothing Reported. Medical History No medical history recorded. 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 [id number] 9107 H90.A32 Otorrhea of left ear 015 1276554 266923 H92.12 Health Concerns Section Related Observation LastModified by Organization Detai ls LastModified Time None Recorded Concern Status LastModified by Organization Details LastModified Time None Recorded Advance Directives Directive None Recorded Payers Insurance Date Sequence Insurance Name Policy Number Policy Flanagan Covered Member ID Flanagan Member ID Guarantor Name 04/18/2022 1 [employer]ARE-[place] (MEDICARE) Mayur Marks [id number] Mayur Marks 04/17/2022 2 [employer] (MEDICARE SUPPLEMENT) Mayur Marks [id number] Mayur Marks
--- OUTSIDE RECORDS SUMMARY | 2025-11-02 19:38 | XMS_ITS | Encounter Summary ---
Author Organization [place] [address] Care Team Providers Care Embedded Systems Engineer Name Role Phone Teja Gomez MD Primary Care Provider [phone] Melecio Rico MD Unavailable [phone] Encounter Details Date Type Department Care Team (Late Contact Info) Description 01/08/2021 Orders Only SEP H&V CV [place] [address] [place] [address] Melecio Rico MD [address] [place] [address] Social History Tobacco Use Types [...] Description 12/14/2025 9:30 AM EST Appointment GRT [facility] [address] [place] [address] 01/23/2026 10:30 AM EDT Office Visit SEP Sleep Medicine [address] [address] Lilly Kc, PATHOLOGY TRANSCRIPTIONIST [address] [facility] [place] [address] 06/12/2026 10:00 AM EDT Office Visit SEP H&V [place] [address] [place] [address] Melecio Rico MD [address] [place] [address] [place] [address] documented as of this encounter Procedures Procedure Name Priority Date/Time Associated Diagnosis Comments PACEART REPORT Routine 01/08/2021 9:15 PM EST documented in this encounter Results * PACEART REPORT (01/08/2021 9:15 PM EST) 01/08/2021 9:[address] [facility] - 01/09/2021 8:59 AM EST Per Carelink- No Events since last session. See attachments for full report and strips...lgy/rma us Melecio Rico MD [facility] CARDIAC CATH ORDERA BLES Final Result [facility] 1 [place] [address] documented in this encounter Visit Diagnoses Not on filedocumented in this encounter Additional Health Concerns Assessment Noted Time A fall risk assessment has been complete d for the patient 07/13/2019 9:07 AM EDT documented as of this encounter Care Teams Embedded Systems Engineer Relationship Specialty Start Date End Date Teja Gomez MD [id number] [address] [facility] [address] PCP - General Family Medicine 12/14/15 Melecio Rico MD [address] [place] [address] [address] [place] [address] Internal Medicine-Cardiovascular Disease 05/12/23 documented as of this encounter
--- OUTSIDE RECORDS SUMMARY | 2025-11-02 19:39 | XMS_ITS | Clinical Summary ---
Author Organization [facility] Address [address] [place] [address] Care Team Providers Care Shactor Name Role Phone Teja Gomez MD Primary Care Provider [phone] Source Comments This information has been disclosed [...] therelease of HIV test results or diagnoses. [id number] Social History Tobacco Use Types Packs/Day [...] - 1-dose 75+ series) 09/17 Immunization: COVID-19 (2024- season) 2025 Immunization: Influenza (MyChart) (#1) 2025 Insurance MEDICARE A AND B Member Subscriber Plan / Payer ( fective 2007-Present) Name:Mayur Marks Relation to Subscriber:Self Name:Mayur Marks Payer ID:[id number] Group ID:Not on file Type:Medicare Address: [facility] [id number] [place] [id number] GENERIC COMMERCIAL Care Teams Shactor Relationship Specialty Start Date End Date Teja Gomez MD 12[address] [facility] [address] [place] [address] PCP - General Family Medicine 12/28/24
--- OUTSIDE RECORDS SUMMARY | 2025-11-02 19:39 | XMS_ITS | Patient Health Record ---
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) 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 confirmed Plan Of Treatment No Information Insurance Providers Payer Name Payer Address Payer Phone Subscriber Number Group Number Insured Name Patient Relationship to Insured Coverage Start Date Coverage End Date MEDICARE [place] [address] [id number] Mayur Martin Self - patient is the insured [place] [address] [phone] [id number] Mayur Martin Self - patient is the insured Medical (General) History Medical History History ICD Code Thyroid Disease Yes hypertension Yes asthma No Diabetes No Diabetes Insulin Dependent No Heart Disease Yes Cancer No Lung Disease No kidney stones No Surgical History Surgery Date(Month/Year) tonsillectomy adenoidectomy Ear Heart Abdominal Joint/Bone
--- OUTSIDE RECORDS SUMMARY | 2025-11-02 19:39 | XMS_ITS | Encounter Summary ---
Author Organization [place] [address] Care Team Providers Care Locomotive Pipe Fitter Name Role Phone Teja Gomez MD Primary Care Provider [phone] Melecio Rico MD Unavailable [phone] Encounter Details Date Type Department Care Team (Late Contact Info) Description 11/05/2021 Orders Only SEP H&V CV [place] [address] [place] [address] Melecio Rico MD [address] [place] [address] Social History Tobacco Use Types [...] AM EST Appointment GRT [facility] [address] [place] [address] 01/23/2026 10:30 AM EDT Office Visit SE[facility] Sleep Medicine [address] [phone] Lilly Kc, SURGICAL ELASTIC KNITTER [address] [place] [address] 06/12/2026 10:00 AM EDT Office Visit SEP H&V [place] [address] [place] [address] Melecio Rico MD [address] [place] [address] [address] [place] [address] documented as of this encounter Procedures Procedure Name Priority Date/Time Associated Diagnosis Comments PACEART REPORT Routine 11/05/2021 1:50 AM EST documented in this encounter Results * PACEART REPORT (11/05/2021 1:50 AM EST) 11/05/2021 1:50 AM EST Narrative [facility] - 11/05/2021 11:20 AM EST Per Carelink- No Events since last session. See attachments for detailed report and strips...lgy/rma us Melecio Rico MD [facility] CARDIAC CATH ORDERA BLES Final Result Performing Organization Address City/State/[facility] Co de Phone Number [facility] 1 [place] [address] documented in this encounter Visit Diagnoses Not on filedocumented in this encounter Additional Health Concerns Assessment Noted Time A fall risk assessment has been complete d for the patient 07/13/2019 9:07 AM EDT documented as of this encounter Care Teams Locomotive Pipe Fitter Relationship Specialty Start Date End Date Teja Gomez MD [facility] [address] [place] [address] PCP - General Family Medicine 12/14/15 Melecio Rico MD [address] [place] [address] [address] [place] [address] Internal Medicine-Cardiovascular Disease 05/12/23 documented as of this encounter
--- OUTSIDE RECORDS SUMMARY | 2025-11-02 19:39 | XMS_ITS | Encounter Summary ---
Author Organization [place] [address] Care Team Providers Care Combination Worker Name Role Phone Teja Gomez MD Primary Care Provider [phone] Melecio Rico MD Unavailable [phone] Encounter Details Date Type Department Care Team (Late st Contact Info) Description 07/03/2020 Orders Only SEP H&V CV [place] [address] [place] [address] Melecio Rico MD [address] [place], [place] [phone] Social History Tobacco Use Types Packs/Day Years [...] Description 12/14/2025 9:30 AM EST Appointment GRT [facility] [address] [place] [address] 01/23/2026 10:30 AM EDT Office Visit SEP Sleep Medicine [address] [address] Lilly Kc, LOGGER ALL ROUND [address] [place] [address] 06/12/2026 10:00 AM EDT Office Visit SEP H&V [place] [address] [place] [address] Melecio Rico MD [address] [place] [address] [address] [place] [address] documented as of this encounter Procedures Procedure Name Priority Date/Time Associated Diagnosis Comments PACEART REPORT Routine 07/03/2020 11:51 AM EDT documented in this encounter Results * PACEART REPORT (07/03/2020 11:51 AM EDT) 07/03/2020 11:5 1 AM EDT Narrative [facility] - 07/07/2020 1:53 PM EDT No dysrhythmias recorded Sensing, threshold, & impedance stable without evidence of malfunction yaquelin JORGED us Melecio Rico MD [facility] CARDIAC CATH ORDERA BLES Final Result Performing Organization Address City/State/[facility] Co de Phone Number [facility] 1 [place] [address] documented in this encounter Visit Diagnoses Not on filedocumented in this encounter Additional Health Concerns Assessment Noted Time A fall risk assessment has been complete d for the patient 07/13/2019 9:07 AM EDT documented as of this encounter Care Teams Combination Worker Relationship Specialty Start Date End Date Teja Gomez MD [facility] [address] [place] [address] PCP - General Family Medicine 12/14/15 Melecio Rico MD [address] [place] [address] [address] [place] [address] Internal Medicine-Cardiovascular Disease 05/12/23 documented as of this encounter
--- OUTSIDE RECORDS SUMMARY | 2025-11-02 19:39 | XMS_ITS | Encounter Summary ---
Author Organization [facility] Address [address] [place] [address] Care Team Providers Care Box Tender Name Role Phone Teja Gomez MD Primary Care Provider [phone] Encounter Details Date Type Department Care Team (Late st Contact Info) Description 10/08/2024 Community Orders [facility] [address] [place] [address] Jacquie Marti MD [address] [place] [address] Social History Tobacco Use Types Packs/Day [...] on filedocumented in this encounter Care Teams Box Tender Relationship Specialty Start Date End Date Teja Gomez MD [address] [place] [address] PCP - General 03/30/21 documented as of this encounter
--- OUTSIDE RECORDS SUMMARY | 2025-11-02 19:39 | XMS_ITS | Clinical Summary ---
Author Organization [facility] Address [address] [place] [id number] Care Team Providers Care Lemon Grower Name Role Phone Teja Gomez MD Primary Care Provider [phone] Social History Tobacco Use Types Packs/Day Years Used Date Smoking Tobacco: Never Assessed Sex and Gender Information Value Date Recorded Sex Assigned at Not on file Legal Sex Male 6:13 PM EDT Gender Identity Not on file Sexual Orientation Not on file Plan of Treatment Not on file Care Teams Lemon Grower Relationship Specialty Start Date End Date Teja Gomez MD [address] [place] [address] PCP - General 03/30/21
--- OUTSIDE RECORDS SUMMARY | 2025-11-02 19:39 | XMS_ITS | Encounter Summary ---
Author [place] [address] Care Team Providers Care Boot Repairer Name Role Phone Teja Gomez MD Primary Care Provider [phone] Melecio Rico MD Unavailable [phone] Encounter Details Date Type Department Care Team (Late st Contact Info) Description 04/17/2022 Orders Only SEP Gastro [facility] [address] [facility] [address] [place] [address] Geovanni Chau MD [address] [place] [address] Social History Tobacco Use Types Packs/Day Years [...] Description 12/14/2025 9:30 AM EST Appointment GRT [facility] [address] [place] [address] 01/23/2026 10:30 AM EDT Office Visit SEP Sleep Medicine [address] [phone] Lilly Kc, VOCATIONAL REHAB CONSULTANT [address] [facility] [place] [address] 06/12/2026 10:00 AM EDT Office Visit SEP H&V [place] [address] [place] [address] Melecio iRco MD [address] [place] [address] [address] [place] [address] documented as of this encounter Procedures Procedure Name Priority Date/Time Associated Diagnosis Comments GMED COLONOSCOPY Routine 04/17/2022 10:0 0 AM EDT documented in this encounter Results * GMED COLONOSCOPY (04/17/2022 10:00 AM EDT) 04/17/2022 10:0 0 AM EDT Impressions [facility] - 04/17/2022 11:10 AM EDT Plan: This section is an excerpt of the full report. Geovanni Chau MD GI PROCEDURE ORDERABLES Papa vijay Result - Final Performing Organization Address City/State/[facility] Co de Phone Number [facility] 1 [place] [address] documented in this encounter Visit Diagnoses Not on filedocumented in this encounter Additional Health Concerns Assessment Noted Time A fall risk assessment has been complete d for the patient 07/13/2019 9:07 AM EDT documented as of this encounter Care Teams Boot Repairer Relationship Specialty Start Date End Date Teja Gomez MD [facility] [address] [place] [address] PCP - General Family Medicine 12/14/15 Melecio Rico MD [address] [place] [address] [address] [place] [address] Internal Medicine-Cardiovascular Disease 05/12/23 documented as of this encounter
--- OUTSIDE RECORDS SUMMARY | 2025-11-02 19:39 | XMS_ITS | Clinical Summary ---
Author Organization [facility] Address [address] [place] [address] Care Team Providers Care Steel Finisher Name Role Phone Teja Gomez MD Primary Care Provider [phone] Noble Briseno MD Unavailable [phone] Allergies No known active allergies Medications amiodarone [...] (#1) 2025 Medical Devices Implanted Type Area Pattern Maker Device Identifier Shelf Expiration Date Model / Serial / Lot Pinn Sector W/Gription 54mm Implanted:Qty: 1 on 03/19/2016 by Noble Briseno MD at [facility] Left: Hip * J \T\ J DEPUY 01/14/2026 1217-32 -[id number] / / [id number] Altrx Acetabular Liner 36mm Implanted:Qty: 1 on 03/19/2016 by Noble Briseno MD at [facility] Left: Hip * J \T\ J DEPUY 01/14/2021 1221-36 -154 / / [id number] Stem Fem Std Collar Corail 12 Implanted:Qty: 1 on 03/19/2016 by Noble Briseno MD at [facility] Left: Hip * J \T\ J DEPUY 10/16/2020 [id number] / / [id number] Hd Oxinium Fem 10/30 36 Mm -3 Implanted:Qty: 1 on 03/19/2016 by Noble Briseno MD at [facility] Left: Hip * COWAN \T\ NEPHEW 11/25/2025 [id number] / / [id number] Insurance MEDICARE Member Subscriber Plan / Payer (Ef fective for All Dates) Name:Mayur Marks Member ID:[id number] Relation to Subscriber:Self Name:Mayur Marks Subscriber ID:[id number] Payer ID:[id number] Group ID:Not on file Type:Medicare Address: [address] [facility] [address] MEDICARE Member Subscriber Plan / Payer (Ef fective for All Dates) Name:KendrickMayur Member ID:[id number] Relation to Subscriber:Self Name:Mayur Marks Subscriber ID:[id number] Payer ID:[id number] Group ID:Not on file Type:Medicare Address: [address] A [facility] [place] [id number] [facility] Advance Directives For more information, please contact: [phone] Documents on File Type Date Recorded 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 [address] [place] [address] Orthopedic Surgery 11/24/22
--- OUTSIDE RECORDS SUMMARY | 2025-11-02 19:39 | XMS_ITS | Encounter Summary ---
Author Organization [place] [address] Care Team Providers Care Risk Control Analyst Name Role Phone Teja Gomez MD Primary Care Provider [phone] Melecio Rico MD Unavailable [phone] Encounter Details Date Type Department Care Team (Late st Contact Info) Description 05/01/2020 Orders Only SEP H&V CV [place] [address] [place] [address] Melecio Rico MD [address] [place], [place] [address] Social History Tobacco Use Types Packs/Day Years [...] 9:30 AM EST Appointment GRT [facility] [address] [place] [address] 01/23/2026 10:30 AM EDT Office Visit SEP Sleep Medicine [address] [address] Lilly Kc, DETONATOR MAKER [address] [place] [address] 06/12/2026 10:00 AM EDT Office Visit SEP H&V [place] [address] [place] [address] Melecio Rico MD [address] [place] [address] [address] [place], [place] [address] documented as of this encounter Procedures Procedure Name Priority Date/Time Associated Diagnosis Comments PACEART REPORT Routine 05/01/2020 4:00 PM EDT documented in this encounter Results * PACEART REPORT (05/01/2020 4:00 PM EDT) 05/01/2020 4:00 PM EDT Melecio Rico MD [facility] C[facility] ORDERA BLES Final Result [facility] 1 [place] [address] documented in this encounter Visit Diagnoses Not on filedocumented in this encounter Additional Health Concerns Assessment Noted Time A fall risk assessment has been complete d for the patient 07/13/2019 9:07 AM EDT documented as of this encounter Care Teams Risk Control Analyst Relationship Specialty Start Date End Date Teja Gomez MD 1210 [facility] [address] [place] [address] PCP - General Family Medicine 12/14/15 Melecio Rico MD [address] [place] [address] [address] [place] [address] Internal Medicine-Cardiovascular Disease 05/12/23 documented as of this encounter
--- OUTSIDE RECORDS SUMMARY | 2025-11-02 19:39 | XMS_ITS | Encounter Summary ---
Author Organization [place] [address] Care Team Providers Care Hose Stripper Name Role Phone Teja Gomez MD Primary Care Provider [phone] Melecio Rico MD Unavailable [phone] Encounter Details Date Type Department Care Team (Late st Contact Info) Description 10/07/2020 Orders Only SEP H&V CV [place] [place] [address] Melecio Rico MD [address] [place], [place] [address] Social History Tobacco Use Types Packs/Day Years [...] Description 12/14/2025 9:30 AM EST Appointment GRT [facility] [address] [place] [address] 01/23/2026 10:30 AM EDT Office Visit SEP Sleep Medicine [address] [address] Lilly Kc, BARREL BRANDER [address] [phone] 06/12/2026 10:00 AM EDT Office Visit SEP H&V [place] [address] [place] [address] Melecio Rico MD [address] [place] [address] [address] [place] [address] documented as of this encounter Procedures Procedure Name Priority Date/Time Associated Diagnosis Comments PACEART REPORT Routine 10/07/2020 12:28 AM EST documented in this encounter Results * PACEART REPORT (10/07/2020 12:28 AM EST) 10/07/2020 12:2 8 AM EST Narrative [facility] - 10/09/2020 1:25 PM EST Per carelink- 1 [address] [place]. See attachments for full report and strips. lgy/rma us Melecio Rico MD [facility] CARDIAC CATH ORDERA BLES Final Result [facility] 1 [place] [address] documented in this encounter Visit Diagnoses Not on filedocumented in this encounter Additional Health Concerns Assessment Noted Time A fall risk assessment has been complete d for the patient 07/13/2019 9:07 AM EDT documented as of this encounter Care Teams Hose Stripper Relationship Specialty Start Date End Date Teja Gomez MD 1210 [facility] [address] [place] [address] PCP - General Family Medicine 12/14/15 Melecio Rico MD [address] [place] [address] [address] [place] [address] (work) Internal Medicine-Cardiovascular Disease 05/12/23 documented as of this encounter
--- OUTSIDE RECORDS SUMMARY | 2025-11-02 19:39 | XMS_ITS | Encounter Summary ---
Author Organization [facility] [place] [address] Care Team Providers Care Upper Extremity Surgeon Name Role Phone Teja Gomez MD Primary Care Provider [phone] Melecio Rico MD Unavailable [phone] Encounter Details Date Type Department Care Team (Latest Contact Info) Description 10/09/2025 Travel Social History Tobacco Use Types Packs/Day Years [...] 12/14/2025 9:30 AM EST Appointment GRT MED [facility] [address] [place] [address] 01/23/2026 10:30 AM EDT Office Visit [facility] Sleep Medicine [address] [address] Lilly Kc, AUTOMATIC GLUING MACHINE OPERATOR [address] [place] [address] 06/12/2026 10:00 AM EDT Office Visit SEP H&V [address] [address] Melecio Rico MD [address] [place] [address] [address] [place] [address] documented as of this encounter Visit Diagnoses Not on filedocumented in this encounter Additional Health Concerns Assessment Noted Time A fall risk assessment has been complete d for the patient 07/13/2019 9:07 AM EDT documented as of this encounter Care Teams Upper Extremity Surgeon Relationship Specialty Start Date End Date Teja Gomez MD [facility] [place] [address] PCP - General Family Medicine 12/14/15 Melecio Rico MD [address] [place] [address] [address] [place] [address] Internal Medicine-Cardiovascular Disease 05/12/23 documented as of this encounter
--- OUTSIDE RECORDS SUMMARY | 2025-11-02 19:39 | XMS_ITS | Encounter Summary ---
Author Organization [place] [address] Care Team Providers Care Equipment Records Supervisor Name Role Phone Galindo Gomez MD Primary Care Provider [phone] Teja Gomez MD Primary Care Provider [phone] Melecio Rico MD Unavailable Encounter Details Date Type Department Care Team (Late st Contact Info) Description 01/11/2010 Orders Only SEP H&V CV [place] [place] [phone] Klaus Knapp MD [address] [place] [address] [phone] (Fax) Social History Tobacco Use Types Packs/Day [...] 12/14/2025 9:30 AM EST Appointment GRT MED [facility] [address] [place] [address] 01/23/2026 10:30 AM EDT Office Visit SEP Sleep Medicine [facility] [address] [place] [address] Lilly Kc, [employer] PILOT [address] [place] [address] 06/12/2026 10:00 AM EDT Office Visit SEP H&V [place] [address] [facility] [place] [address] Melecio Rico MD [address] [facility] [place] [address] [place] [address] documented as of this encounter Procedures [...] a practice prior to that practice using [facility] for Medical Records. Performing Provider: Klaus Mccurdy M.D. Klaus Knapp MD IMG ECHO ORDERABLES Final Result documented in this encounter Visit Diagnoses Not on filedocumented in this encounter Care Teams Equipment Records Supervisor Relationship Specialty Start Date End Date Galindo Gomez MD [address] [place] [address] [address] [place] [address] PCP - General Psychiatry & Neurology-Neurology 10/16/11 12/13/15 Teja Gomez MD [address] [place] [address] PCP - General Family Medicine 12/14/15 Melecio Rico MD [address] [place] [address] [place] [address] Internal Medicine-Cardiovascular Disease 05/12/23 documented as of this encounter
--- OUTSIDE RECORDS SUMMARY | 2025-11-02 19:39 | XMS_ITS | Encounter Summary ---
Author Organization [place] [address] Care Team Providers Care Production Clerks Supervisor Name Role Phone Teja Gomez MD Primary Care Provider [phone] Melecio Rico MD Unavailable [phone] Reason for Visit * Reason Comments Medication Refill Encounter Details Date Type Department Care Team (Late st Contact Info) Description 11/01/2025 Refill [facility] H&V [place] [address] [place] [address] Melecio Rico MD [address] [place] [address] Medication Refill Social History Tobacco Use Types [...] Tablet by mouth daily. 100 Tablet 1 11/02/2025 documented in this encounter Plan of Treatment Upcoming Encounters Date Type Department Care Team (Late st Contact Info) Description 12/14/2025 9:30 AM EST Appointment GRT MED [facility] [address] [place] [address] 01/23/2026 10:30 AM EDT Office Visit [facility] Sleep Medicine [address] [phone] Lilly Kc, ADVERTISING ASSISTANT 606 [facility] [place] [address] 06/12/2026 10:00 AM EDT Office Visit SEP H&V [place] [address] [place] [address] Melecio Rico MD [address] [place] [address] [address] [place] [address] documented as of this encounter Visit Diagnoses Diagnosis PVC (premature ventricular contraction) Other premature beats documented in this encounter Discontinued Medications Medication Sig Discontinue Reason Start Date End Da te metoprolol succinate (TOPROL-XL) 50 mg Oral Tablet Sustained Release 24 hrIndications:PVC (premature ventricular contraction) Take 1 Tablet by mouth daily. 05/03/2025 11/02/2025 documented as of this encounter Additional Health Concerns Assessment Noted Time A fall risk assessment has been complete d for the patient 07/13/2019 9:07 AM EDT documented as of this encounter Care Teams Production Clerks Supervisor Relationship Specialty Start Date End Date Teja Gomez MD [facility] [address] [place] [address] PCP - General Family Medicine 12/14/15 Melecio Rico MD [address] [place] [address] [address] [place], [place] [id number] Internal Medicine-Cardiovascular Disease 05/12/23 documented as of this encounter
--- OUTSIDE RECORDS SUMMARY | 2025-11-02 19:39 | XMS_ITS | Clinical Summary ---
Author Organization [facility] Address [address] [place] [address] Care Team Providers Care Medical Administrative Assistant Name Role Phone Teja Gomez MD Primary Care Provider [phone] Source Comments [facility] is fully rolled out with thefollowing exceptions:General Clinical Research [facility] Allergies No known active allergies Medications [...] (1 of 1 - Standard series) 1943 Yearly Physical Ages 3-18+ 1953 VARICELLA IMMUNIZATION (1 of 2 - 13+ 2-dose series) 1955 DTAP/Tdap/Td IMMUNIZATION (2 - Tdap) 04/13/2010 03/16/2010 Respiratory Syncytial Virus (RSV) >60yo or (1 - 1-dose 75+ series) 2017 AMB SEASONAL FLU VACCINE (#1) 07/18/2025 COVID-19 Vaccine (1 - 2024-2 6 season) 2025 HEPATITIS B IMMUNIZATION Aged Out [...] this topic Insurance [employer]IS[employer] Care Teams Medical Administrative Assistant Relationship Specialty Start Date End Date Teja Gomez MD [address] [place] [address] PCP - General 11/14/10
--- OUTSIDE RECORDS SUMMARY | 2025-11-02 19:39 | XMS_ITS | Clinical Summary ---
Author Organization [facility] Address [address] [place] [address] Phone Care Team Providers Care Supervisor Grove Name Role Phone Teja Gomez MD Primary Care Provider [phone] Melecio Rico MD Unavailable [phone] Allergies No known active allergies Medications LEVOTHYROXINE [...] Take 20 mg by mouth nightly. 6 018 Active amiodarone (PACERONE) 200 mg Oral TabletIndicatio ns:Paroxysmal atrial fibrillation (HCC) Take 0.5 Tabs by mouth daily. 30 Tab 6 018 Active Additional Information Patient not taking.Reason: on hold due to itching, Reported on 10/19/2025 loratadine (CLARITIN) 10 mg Oral Tablet Take 10 mg by mouth as needed (allergies). Active spironolactone (ALDACTONE) 25 mg Oral TabletIndicatio ns:Essential hypertension Take 1 Tab by mouth daily. 30 Tab 11 021 Active hydroCHLOROthia zide (MICROZIDE) 12.5 mg Oral Capsule Take 12.5 mg by mouth daily. Taking every other day. Active methylcellulose (CITRUCEL) 500 mg Oral TabletIndicatio ns:Alternating constipation and diarrhea Take 1 Tablet by mouth 2 times daily. 60 Tablet 2 024 Active Bifidobacterium Infantis (ALIGN) 4 mg Oral CapsuleIndicati ons:Alternating constipation and diarrhea Take 1 Capsule by mouth daily. 30 Capsule 2 024 Active albuterol (PROVENTIL HFA;VENTOLIN HFA) 90 mcg/actuation Inhl HFA Aerosol Inhaler Inhale 2 Puffs into the lungs every 4 hours as needed. 024 Active potassium chloride (KLOR-CON M) 20 mEq Oral Tab Sust.Rel. Particle/Saloni l Take 20 mEq by mouth daily. 024 Active valACYclovir (VALTREX) 500 mg Oral Tablet Take 500 mg by mouth every 12 hours. Active lamiVUDine (EPIVIR) 100 mg Oral TabletIndicatio ns:Chronic hepatitis B with cirrhosis (HCC) Take 1 Tablet by mouth daily. 90 Tablet 3 025 Active warfarin (COUMADIN) 5 mg Oral TabletIndicatio ns:Paroxysmal atrial fibrillation (HCC) Take 2.5mg (1/2 tablet) to 5mg (1 tablet) by mouth daily as instructed per anticoagulation clinic. 54 Tablet 1 025 Active doxepin (SINEQUAN) 10 mg Oral Capsule Take 10 mg by mouth 3 times daily. 025 Active metoprolol succinate (TOPROL-XL) 50 mg Oral Tablet Sustained Release 24 hrIndications:P VC (premature ventricular contraction) Take 1 Tablet by mouth daily. 100 Tablet 1 025 Active metoprolol succinate (TOPROL-XL) 50 mg Oral Tablet Sustained Release 24 hrIndications:P VC (premature ventricular contraction) Take 1 Tablet by mouth daily. 100 Tablet 1 025 2024 Discontinued Active Problems Problem Noted Date Diagnosed Date PVC (premature ventricular contraction) 01/18/20 23 Chronic hepatitis B with cirrhosis 08/25/2019 Cholecystitis 05/25/2019 Overview (05/25/2019): Added automatically from request for surgery [id number] Lymphadenopathy 05/25/2019 Overview (05/25/2019): Added automatically from request for surgery [id number] Gallbladder mass 05/19/2019 Meniere disease 06/25/2012 Pacemaker 05/14/2012 Overview (01/17/2023): Medtronic Dual PPM generator change 01/08/[address] Rico Paroxysmal atrial fibrillation 03/26/2012 Overview (05/21/2019): 05/21/19: Maintained on Warfarin EMERSNO (obstructive sleep apnea) wears BPAP 012 Essential hypertension 03/26/2012 Dyslipidemia 03/26/2012 Hypothyroidism 03/26/2012 Class 3 severe obesity due t o excess calories without serious comorbidity with body mass index (BMI) of 40.0 to 44.9 in adult 03/26/2012 Family history of early CAD 03/26/2012 Encounters Date Type Department Care Team Description 11/01/2025 Refill SEP H&V [address] [address] Melecio Rico MD Medication Refill 10/19/2025 8:48 AM EST - 10/19/2025 11:59 PM EST Hospital Encounter T [facility] [address] [place] [address] Paroxysmal atrial fibrillation (HCC) (Primary Dx); Encounter for therapeutic drug monitoring; 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 238 [facility] 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 [address] [facility] [place] [address] Paroxysmal atrial fibrillation (HCC) (Primary Dx); Encounter for therapeutic drug monitoring; shelter (current) use of anticoagulants Discharge Disposition: Home or Self Care from Last 3 Months Immunizations Immunization Administration [...] cholecystectomy ; Surgeon: Timothy Macias MD; Location: T MAIN OR; Service: General COLONOSCOPY UPPER GASTROINTESTINAL ENDOSCOPY UPPER GASTROINTESTINAL ENDOSCOPY 08/25/2019 N/A ESOPHAGOGASTRODUODENOSCOPY ; Surgeon: Geovanni Chau MD; Location: [facility]; Service: Endoscopy Medical History Medical History Date Comments Atrial fibrillation (HCC) Thyroid disease Arthritis Hypertension echo 10/2011 cecilia wed EF 60-65%, diastolic dysfunction, mod LAD, mild [...] Pulse 83 10/12/2025 10:11 AM EST Temperature 36.7 C (98.1 F) 11/24/2023 9:10 AM EST Respiratory Rate 17 11/24/2023 9:10 AM EST Oxygen Saturation 96% 10/12/2025 10:11 AM EST Inhaled Oxygen Concentration - - Weight 135.6 kg (299 lb) 10/12/2025 10:11 AM EST Height 167.6 cm (5' 6 ) 10/12/2025 10:11 AM EST Body Mass Index 48.26 10/12/2025 10:11 AM EST Plan of Treatment Upcoming Encounters Date Type Department Care Team (Late st Contact Info) Description 12/14/2025 9:30 AM EST Appointment GRT MED [address] [address] 01/23/2026 10:30 AM EDT Office Visit [facility] [address] [address] Lilly Kc, ELEMENTARY EDUCATION TUTOR [address] [place] [address] 06/12/2026 10:00 AM EDT Office Visit SEP H&V [place] [address] [place] [address] Melecio Rico MD [address] [place] [address] Health Maintenance Due Date Last Done Comments [...] this topic Medical Devices Implanted Type Area Amusement Centre Manager Device Identifier Shelf Expiration Date Model / Serial / Lot Pacemaker Fallon Xt Dr Mri Surscn 2chmbr 46.6x50.8x7.4mm - [id number] Implanted:Qty: 1 on 01/08/2023 by Melecio Rico MD at [facility] Pacemaker MEDTRONIC:PIPE [place] SYS [id number] 05/30/2024 [id number] / [id number] / Bilateral Total Hip Replacements Lead Capsurefix Mri 5086 Is-I Bi Artrial 58cm - [id number] Implanted:Qty: 1 on 04/08/2012 by Melecio Rico MD at [facility] PHOTO BOOTH OPERATOR MEDTRONIC:CARDI AC SURG SRVC [id number] / [id number] / Lead Capsurefix Mri 5086 Is-I Bi Artrial 52cm - [id number] Implanted:Qty: 1 on 04/08/2012 by Melecio Rico MD at [facility] PHOTO BOOTH OPERATOR MEDTRON[employer]:CARDI AC SURG SRVC [id number] / [id number] V / Envelope Tyrx Absb Antbtc Impl 2.9x3.3in Sgl-Healy Foil Pch - [id number] Implanted:Qty: 1 on 01/08/2023 by Melecio Rico MD at [facility] MEDTRONIC:PIPE HAGAN [id number] 10/17/2023 [id number] / / [id number] Explanted Type Area Amusement Centre Manager Device Identifier Shelf Expiration Date Model / Serial / Lot Pacemaker Revo Mri Dual Chamber - [id number] Implanted:Qty: 1 on 04/08/2012 by Melecio Rico MD at [facility] PHOTO BOOTH OPERATOR Explanted:Qty: 1 on 01/08/2023 at [facility] MEDTRONIC:CARDIAC SURG SRVC [id number] / [id number] / Procedures Procedure Name Priority Date/Time Associated Diagnosis Comments POCT PT/INR Routine 10/19/2025 8:55 AM EST Paroxysmal atrial fibrillation (HCC) Encounter for therapeutic drug monitoring shelter (current) use of anticoagulants POCT PT/INR Routine 10/05/2025 8:57 AM EST Paroxysmal atrial fibrillation (HCC) Encounter for therapeutic drug monitoring 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 Protime [facility] INR 2.20 (ratio) [facility] Lot Number [facility] Expiration Date [facility] SeriAl # [facility] 10/19/2025 8:55 AM EST Melecio Rico MD POINT OF CARE TEST TRISTON FLANNERY Final Result [facility] [address] [place] [address], [facility] * VECTOR REMOTE DEVICE (08/20/2025) 08/20/2025 Narrative [facility] - 08/20/2025 No significant episodes. Atrial Episodes: 1. Longest atrial episode: 44m:8s. Patient on AC. Mode: AAIR<=>DDDR. AP: 94%. AUXILIARY PLANT OPERATOR: 0.1%. Normal device function. Melecio Rico MD [facility] CARDIAC CATH ORDERA BLES Final Result [facility] 1 [place] [address] from Last 3 Months Insurance [place]ICARE [place] PART [place] Advance Directives For more information, please contact: [phone] Documents on File Type Date Recorded Patient Detonator Assembler Expl anation ADVANCE DIRECTIVE 11/24/2023 * Full Code (Latest Code Status on File) Date Activated Date Inactivated Comments 05/19/2019 2:50 AM 05/21/2019 7:49 PM Care Teams Supervisor Grove Relationship Specialty Start Date End Date Teja Gomez MD [address] [facility] [address] [place] [phone] PCP - General Family Medicine 12/14/15 Melecio Rico MD [address] [facility] [place] [address] [place] [address] Internal Medicine-Cardiovascular Disease 05/12/23
--- OUTSIDE RECORDS SUMMARY | 2025-11-02 19:39 | XMS_ITS | Encounter Summary ---
Author Organization [facility] [address] Care Team Providers Care Robotic Welding Operator Name Role Phone Teja Gomez MD Primary Care Provider [phone] Melecio Rico MD Unavailable [phone] Encounter Details Date Type Department Care Team (Late st Contact Info) Description 09/16/2022 Orders Only SEP H&V [place] 1500 [facility] [address] [place] [address] Melecio Rico MD [address] [place], [place] [address] Social History Tobacco Use Types Packs/Day Years [...] Description 12/14/2025 9:30 AM EST Appointment GRT [facility] [address] [place] [address] 01/23/2026 10:30 AM EDT Office Visit SE[facility] Sleep Medicine [address] [address] Lilly Kc, DAY PORTER 606 [facility] [address] 06/12/2026 10:00 AM EDT Office [place] [address] Melecio Rico MD [address] [place] [address] [address] [place] [address] documented as of this encounter Procedures Procedure Name Priority Date/Time Associated Diagnosis Comments PACEART REPORT Routine 09/16/2022 1:23 PM EDT documented in this encounter Results * PACEART REPORT (09/16/2022 1:23 PM EDT) 09/16/2022 1:23 PM EDT Narrative [facility] - 09/20/2022 10:45 AM EDT in office device check 1 fast A & V on 04-27-22 x 9 sec (1:) see attachments for detailed report us Melecio Rico MD [facility] CARDIAC CATH ORDERA BLES Final Result [facility] 1 [place] [address] documented in this encounter Visit Diagnoses Not on filedocumented in this encounter Additional Health Concerns Assessment Noted Time A fall risk assessment has been complete d for the patient 07/13/2019 9:07 AM EDT documented as of this encounter Care Teams Robotic Welding Operator Relationship Specialty Start Date End Date Teja Gomez MD [facility] [address] [place] [address] PCP - General Family Medicine 12/14/15 Melecio Rico MD [address] [place] [address] [address] [place] [id number] Internal Medicine-Cardiovascular Disease 05/12/23 documented as of this encounter
--- OUTSIDE RECORDS SUMMARY | 2025-11-02 19:39 | XMS_ITS | Encounter Summary ---
Author Organization [place] [address] Care Team Providers Care Color Control Supervisor Name Role Phone Teja Gomez MD Primary Care Provider [phone] Melecio Rico MD Unavailable [phone] Encounter Details Date Type Department Care Team (Late st Contact Info) Description 08/21/2021 Orders Only SEP H&V CV [place] [address] [place] [address] Melecio Rico MD [address] [place], [place] [id number] Social History Tobacco Use Types Packs/Day Years [...] Description 12/14/2025 9:30 AM EST Appointment GRT [facility] [address] [place] [address] 01/23/2026 10:30 AM EDT Office Visit SEP Sleep Medicine [address] [phone] Lilly Kc, LICENSING AND REGISTRATION DIRECTOR [address] [place] [address] 06/12/2026 10:00 AM EDT Office Visit SEP H&V [place] [address] [place] [address] Melecio Rico MD [address] [place] [address] [address] [place] [address] documented as of this encounter Procedures Procedure [...] Final Result [facility] 1 [place] [address] documented in this encounter Visit Diagnoses Not on filedocumented in this encounter Additional Health Concerns Assessment Noted Time A fall risk assessment has been complete d for the patient 07/13/2019 9:07 AM EDT documented as of this encounter Care Teams Color Control Supervisor Relationship Specialty Start Date End Date Teja Gomez MD 1210 [facility] [address] [place] [phone] PCP - General Family Medicine 12/14/15 Melecio Rico MD [address] [place] [address] [place] [address] Internal Medicine-Cardiovascular Disease 05/12/23 documented as of this encounter
--- OUTSIDE RECORDS SUMMARY | 2025-11-02 19:39 | XMS_ITS | Encounter Summary ---
Author Organization [place] [address] Care Team Providers Care Repairer And Checker Name Role Phone Teja Gomez MD Primary Care Provider [phone] Melecio Rico MD Unavailable Encounter Details Date Type Department Care Team (Latest Contact Info) Description 07/12/2025 Results Follow-Up SEP [facility]STR[facility] [place] 49[address] [facility] [address]D ENTRANCE, 3[place] [address] AnGeovanni harden MD [address] [place] [address] ALPHA FETOPROTEIN TUMOR MARKER -REF LAB, COMPREHENSIVE [...] EST Appointment [facility] 238 [place] [address] 01/23/2026 10:30 AM EDT Office Visit SEP Sleep Medicine [address] [address] Lilly Kc, CAMPGROUND HAND 606 [facility] [place] [address] 06/12/2026 10:00 AM EDT Office Visit SEP H&V [place] [address] Melecio Rico MD [address] [place] [address] [place] [address] documented as of this encounter Visit Diagnoses Not on filedocumented in this encounter Additional Health Concerns Assessment Noted Time A fall risk assessment has been complete d for the patient 07/13/2019 9:07 AM EDT documented as of this encounter Care Teams Repairer And Checker Relationship Specialty Start Date End Date Teja Gomez MD [address] [place] [address] [address] [place] [address] PCP - General Family Medicine 12/14/15 Melecio Rico MD [address] [place] [address] [place] [address] Internal Medicine-Cardiovascular Disease 05/12/23 documented as of this encounter
== END 2025-11-01 23:59 | disposition home or self-care (01) ==
LOC: LAB.DROPOF 11-02 19:36
PROVIDERS: PCP Family Medicine; Visit Provider Family Medicine
DX: L29.9 Pruritus, unspecified (principal); B18.1 Chronic viral hepatitis B without delta-agent; K74.60 Unspecified cirrhosis of liver
CPT/HCPCS: 80053; 85007; 85014; 85018; 85048; 85049; 85651